=== PATIENT | male | born 1970 | race Caucasian/White ===

== ENCOUNTER → 2016-12-16 | Outpatient (REF) | payer OTHER ==
[~2016-12-16] MED LIST: /AMLO25TA PO; AMLO25TA PO; ASPI81TA85 PO; AVEL1TAB3 PO; BACT800T5 PO; CEFT1INJ65 IV; CEPH2CAP PO; CHLO125TA PO; DICL250C70 PO; DICL500C PO; GABA-282 PO; GLYB125TA PO; GLYB5TA PO; GLYB5TAB5 PO; HEPA100I4 IV; HEPA1INJ4 IV; INVA1INJ IV; INVO300T PO; LEVO100T5 PO; LEVO75TA4 PO; LISI-538 PO; LORA10CA PO; METF1000 PO; METF10004 PO; NAPR500T3 PO; PERCOCET PO; PRIN10TA PO; SALI0.9I2 IV; SILV50CR; SIMV40TA2 PO; SLF IV; TRAD5TAB PO; TYLE325T5 PO
[2016-12-16 20:18] LABS: ANION GAP 9 MEQ/L (8-16); BLOOD UREA NITROGEN 16 MG/DL (7-18); CALCIUM LEVEL 9.6 MG/DL (8.5-10.1); CARBON DIOXIDE LEVEL 28 MEQ/L (21-32); CHLORIDE LEVEL 100 MEQ/L (98-107); CREATININE FOR GFR 1.28 MG/DL (0.70-1.30); FREE T4 1.04 NG/DL (0.76-1.46); GLOMERULAR FILTRATION RATE > 60.0 (>60); MAGNESIUM LEVEL 2.1 MG/DL (1.8-2.4); POTASSIUM SERUM 4.3 MEQ/L (3.5-5.1); SODIUM LEVEL 137 MEQ/L (136-145)
[2016-12-16 20:51] LABS: GLUCOSE, FASTING 492 MG/DL (70-105)
== END ==
LOC: M SFHCPLAZ 15:09
DX: E03.9 Hypothyroidism, unspecified (principal); E11.21 Type 2 diabetes mellitus with diabetic nephropathy; I10 Essential (primary) hypertension

== ENCOUNTER → 2016-12-27 | Outpatient (REF) | payer OTHER | LOC: M LAB REF 16:57 | PROVIDERS: ATTEND Podiatrist | DX: E11.621 Type 2 diabetes mellitus with foot ulcer (principal) ==

== ENCOUNTER → 2017-02-24 | Outpatient (REF) | payer OTHER | LOC: M SFHCPLAZ 16:09 | DX: Z11.59 Encounter for screening for other viral diseases (principal); Z11.4 Encounter for screening for human immunodeficiency virus [HIV] ==

== ENCOUNTER → 2017-03-03 | Outpatient (REF) | payer OTHER | LOC: M LAB REF 12:54 | PROVIDERS: ATTEND Podiatrist | DX: L97.512 Non-pressure chronic ulcer of other part of right foot with fat layer exposed (principal) ==

== ENCOUNTER → 2017-03-07 | Outpatient (CLI) | payer OTHER ==
[2017-03-07 11:29] LABS: BASO # 0.1 10^3/uL (0.0-0.2); BASO % 0.8 % (0.0-1.0); EOS # 0.2 10^3/uL (0.0-0.50); EOS % 2.9 % (0.0-3.0); LYMPH # 2.2 10^3/uL (1.5-4.5); LYMPH % 28.3 % (24.0-44.0); MEAN CORPUSCULAR HEMOGLOBIN 29.9 pg (27.0-33.0); MEAN CORPUSCULAR HGB CONC 33.9 g/dl (32.0-36.5); MEAN CORPUSCULAR VOLUME 88.1 fl (80.0-96.0); MONO # 0.6 10^3/uL (0.0-0.8); MONO % 7.7 % (0.0-5.0); NEUTROPHILS # 4.6 10^3/uL (1.8-7.7); NEUTROPHILS % 59.3 % (36.0-66.0); PLATELET COUNT, AUTOMATED 218 10^3/uL (150-450); RED CELL DISTRIBUTION WIDTH 12.2 % (11.5-14.5); WHITE BLOOD COUNT 7.7 10^3/uL (4.0-10.0)
[2017-03-07 12:18] LABS: ALBUMIN 3.8 GM/DL (3.2-5.2); ALBUMIN/GLOBULIN RATIO 1.09 (1.00-1.93); ALKALINE PHOSPHATASE 83 U/L (45-117); ALT/SGPT 42 U/L (12-78); ANION GAP 8 MEQ/L (8-16); AST/SGOT 16 U/L (15-37); BILIRUBIN,TOTAL 0.4 MG/DL (0.2-1.0); BLOOD UREA NITROGEN 12 MG/DL (7-18); CALCIUM LEVEL 8.8 MG/DL (8.5-10.1); CARBON DIOXIDE LEVEL 29 MEQ/L (21-32); CHLORIDE LEVEL 98 MEQ/L (98-107); CREATININE FOR GFR 1.08 MG/DL (0.70-1.30); GLOMERULAR FILTRATION RATE > 60.0 (>60); POTASSIUM SERUM 4.6 MEQ/L (3.5-5.1); SODIUM LEVEL 135 MEQ/L (136-145); TOTAL PROTEIN 7.3 GM/DL (6.4-8.2)
[2017-03-07 12:22] LABS: GLUCOSE, FASTING 416 MG/DL (70-105)
--- NOTE | 2017-03-07 21:33 | ECGEPIP ---
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
== END ==
LOC: M LAB 10:51
PROVIDERS: ATTEND Podiatrist
DX: Z01.818 Encounter for other preprocedural examination (principal)

== ENCOUNTER 2017-03-11 11:30 | Day surgery (SDC) | payer OTHER ==
[~2017-03-11] VITALS: Ht 182.9 cm; Wt 143.8 kg
[2017-03-11] MEDS ORDERED: LR 1,000 ML IV ONE (11:45)
[2017-03-11] MEDS ORDERED: LIDOCAINE 2% INJ 100 MG/5 ML SDV (FOR ANES.) As Ordered ONE (11:46)
[2017-03-11] MEDS ORDERED: PROPOFOL 200 MG/20 ML VIAL As Ordered ONE (11:46)
[2017-03-11] MEDS ORDERED: fentaNYL 100 MCG/2 ML INJECTION (J3010) As Ordered ONE (11:47)
[2017-03-11] MEDS ORDERED: MIDAZOLAM INJ 2 MG/2 ML VIAL (J2250) As Ordered ONE (11:48)
[2017-03-11] MEDS ORDERED: VANCOMYCIN HCL 1,000 MG, VIAL MATE ADAPTER 1 EACH in D5W 250 ML IV ONE (12:00)
[2017-03-11] MEDS ORDERED: dexameTHASONE 4 MG/ML 1ML VIAL (J1100) As Ordered ONE (12:19)
[2017-03-11] MEDS ORDERED: LIDOCAINE 2% MDV 20 ML VIAL As Ordered ONE (12:19)
[2017-03-11] MEDS ORDERED: BUPIVACAINE HCL 0.5% 30 ML VIAL As Ordered ONE (12:20)
[2017-03-11] MEDS ORDERED: BACITRACIN PWD 50,000 UNITS VIAL As Ordered ONE (12:20)
[2017-03-11] MEDS ORDERED: HumaLOG INSULIN (NovoLOG) PER UNIT As Ordered ONE (12:27)
[2017-03-11] MEDS ORDERED: HumaLOG INSULIN (NovoLOG) PER UNIT SC ONE ×2 (13:00→14:15)
[2017-03-11 14:45] VITALS: BP 135/68
--- NOTE | 2017-03-11 14:55 | REP ---
RIGHT FOOT: Three views of the right foot are performed. There is resection of the 2nd toe at the level of the proximal phalanx mid aspect. There is resection of the 3rd toe at the level of the metatarsophalangeal joint. There is resection of the 4th toe at the level of the middle phalanx mid aspect. The structures are well aligned. There are degenerative changes at the tarsal-metatarsal joints. There is mild inferior calcaneal spurring. Signed by Frank Villegas MD 03/11/2017 05:21 P
--- NOTE | 2017-03-12 07:18 | RO ---
DATE OF PROCEDURE: 03/11/2017 PREPROCEDURE DIAGNOSIS: Chronic ulceration with infected second toe right foot. POSTPROCEDURE DIAGNOSIS: Chronic ulceration with infected second toe right foot. PROCEDURE: Partial second toe amputation right foot. SURGEON: Dr. Chu Mobley DPM MELTER OPERATOR: None. ANESTHESIA: Local MAC. ESTIMATED BLOOD LOSS: Less than 15 mL. IRRIGATION: Dilute bacitracin, neomycin and polymyxin B solution. HEMOSTASIS: None. DESCRIPTION OF OPERATION: On 03/11/2017, this 46-year-old white male was taken from his hospital room to the operating room and placed on the operating room table in the supine position. Following the induction of IV sedation and local and regional anesthesia, the right lower extremity was prepped and draped in the usual aseptic manner. Attention was directed to the patient's right foot where there was noted to be a chronic ulceration distal aspect second toe right foot. At this time, a modified rachet incision was placed over the interphalangeal joint of the second toe. Dissection was carried sharply down to bone. All bleeders as encountered were electrocoagulated. Utilizing a power saw, an osteotomy was performed through the mid shaft of the middle phalanx. The second toe was then extirpated from the wound. Any remaining bleeders were electrocoagulated. The wound was flushed with copious amounts of dilute bacitracin, neomycin and polymyxin B solution. Bone culture was obtained from the bone on the distal aspect of the second toe. Skin was closed with #3-0 Nylon suture in a simple interrupted type fashion. Dry sterile dressing was applied. The patient having apparently tolerated the surgical procedure well was taken from the operating room (OR) to the recovery room with vital signs stable and the patient afebrile for further monitoring by the anesthesia department. All surgical specimens removed were sent for either aerobic and anaerobic culture or gross evaluation.
== END 2017-03-11 15:00 | disposition home or self-care (01) ==
LOC: M SDC 11:30
PROVIDERS: ATTEND Podiatrist
DX: L97.512 Non-pressure chronic ulcer of other part of right foot with fat layer exposed (principal); M79.671 Pain in right foot; B95.1 Streptococcus, group B, as the cause of diseases classified elsewhere; B95.2 Enterococcus as the cause of diseases classified elsewhere; B95.7 Other staphylococcus as the cause of diseases classified elsewhere; E11.42 Type 2 diabetes mellitus with diabetic polyneuropathy; E11.621 Type 2 diabetes mellitus with foot ulcer; I10 Essential (primary) hypertension; E78.5 Hyperlipidemia, unspecified; E03.9 Hypothyroidism, unspecified; F41.9 Anxiety disorder, unspecified; Z79.899 Other long term (current) drug therapy; Z87.891 Personal history of nicotine dependence; Z91.040 Latex allergy status; Z91.030 Bee allergy status; Z79.84 Long term (current) use of oral hypoglycemic drugs

== ENCOUNTER → 2017-03-22 | Outpatient (CLI) | payer OTHER ==
[~2017-03-22] MED LIST changes: +ISOVUE-370 76% 100ML VIAL (Q9967) As Ordered ONE
--- NOTE | 2017-03-23 05:15 | REP ---
Clinical: Abnormal density on x-ray. Comparison: Chest x-ray dated 02/24/2017. Technique: Axial contrast enhanced images from the thoracic inlet to the upper abdomen using 100 ml Isovue 370 intravenous contrast material with coronal and sagittal re-formations. Findings: The curvilinear abnormality seen on recent chest x-ray corresponds to an area of presumed linear scarring in the right middle lobe (images 45 - 55). The bilateral lung slade are otherwise well aerated and clear. No further consolidation, obvious nodule or mass lesion is appreciated. No pleural effusion/reaction or pneumothorax. Tracheobronchial tree is patent. No adenopathy. Mediastinum demonstrates normal thoracic aorta, pulmonary vasculature and heart/pericardium. Limited evaluation of the upper abdomen demonstrates hepatic steatosis. Surrounding musculoskeletal structures without focal osseous abnormality. Impression: Recent abnormal chest x-ray finding corresponds to presumed chronic linear fibroatelectatic changes in the right middle lobe. No further abnormalities are identified. Signed by Tomi Rosenthal MD 03/23/2017 05:06 A
== END ==
LOC: M RAD 12:57
PROVIDERS: ATTEND Neuromusculoskeletal Medicine & OMM
DX: R93.8 Abnormal findings on diagnostic imaging of other specified body structures (principal)
CPT/HCPCS: 71260; Q9967

== ENCOUNTER → 2018-07-25 | Outpatient (REF) ==
[~2018-07-25] MED LIST changes: -GABA-282 PO; +GABA-843 PO; -ISOVUE-370 76% 100ML VIAL (Q9967) As Ordered ONE; +NAPR-885 PO; -NAPR500T3 PO
--- NOTE | 2018-07-25 14:54 | REP ---
PARTIAL LUMBAR SPINE, THREE VIEWS: HISTORY: Degenerative disc disease. COMPARISON: 04/01/2014 There is no acute fracture or subluxation. The L3-4 through L5-S1 intervertebral discs are decreased in height consistent with disc degeneration. Osteophytes are present on L3 through 5. IMPRESSION:Degenerative change as described above. Electronically Signed by John Marin MD 07/25/2018 02:54 P
== END ==
LOC: M SMT 12:59
PROVIDERS: ATTEND Internal Medicine
DX: Z02.71 Encounter for disability determination (principal)

== ENCOUNTER 2021-07-06 10:08 | Inpatient (IN) | payer OTHER ==
[~2021-07-06] VITALS: Ht 182.9 cm; Wt 127.7 kg
[~2021-07-06 10:08] MED LIST changes: -/AMLO25TA PO; +AMLO1TAB25 PO; +AMOX875T2 PO; +ASPI81TA26 PO; -ASPI81TA85 PO; +ASPI81TA86 PO; +DULC10SU2 PR; +GABA-282 PO; -GABA-843 PO; +GLYB-147 PO; -GLYB5TA PO; +HYDR-4514 PO; +INSUDET SC; -LISI-538 PO; +LISI20TA33 PO; +LORA-243 PO; +LOVE1INJ SC; +MOM30SS2 PO; +NORV2TAB PO; +OXYC1TAB23 PO; +RISATAB3 PO; +SENN18TA PO; -SIMV40TA2 PO; +SIMV40TA20 PO; +SYNT125T PO
[2021-07-06] MEDS ORDERED: GLUCAGON INJ 1MG VIAL SC PRN (10:55)
[2021-07-06] MEDS ORDERED: DEXTROSE 50% 50 ML SYRINGE IV PRN (10:55)
[2021-07-06] MEDS ORDERED: BISACODYL 10 MG SUPP PR PRN (10:55)
[2021-07-06] MEDS ORDERED: GLUCOSE 4GM CHEW TABLET PO PRN (10:55)
[2021-07-06] MEDS ORDERED: MIRALAX *UNIT DOSE* 17GM PACKET PO PRN (10:55)
[2021-07-06 14:15] VITALS: BP 110/59
[2021-07-06] MEDS ORDERED: HOME MED LIST COMPLETE! XX SCH (14:30)
[2021-07-06] MEDS: ACETAMINOPHEN TAB 650MG DOSE (2X325MG) PO SCH ×2 (16:27→21:03)
[2021-07-06] MEDS: PANTOPRAZOLE 40MG TAB (PROTONIX) PO SCH (16:27)
[2021-07-06] MEDS: GABAPENTIN 300 MG CAP PO SCH ×2 (16:27→21:04)
[2021-07-06] MEDS: REMEDY PHYTOPLEX Z-GUARD PASTE 113GM TUBE (FROM STOREROOM PRODUCT) TOP SCH ×2 (16:28→21:00)
[2021-07-06] MEDS: HumaLOG INSULIN (NovoLOG) PER UNIT SC SCH ×2 (17:49→21:00)
[2021-07-06] MEDS: ANEXSIA, NORCO 7.5MG/325MG TABLET(HYDROCODONE/APAP) PO SCH (17:49)
[2021-07-06] MEDS: LACTOBACILLUS ACIDOPHILUS CAP (BACID) PO SCH (17:49)
[2021-07-06 20:21] VITALS: BP 121/63
[2021-07-06] MEDS ORDERED: AUGMENTIN 875 MG TAB PO ONE (21:00)
[2021-07-06] MEDS: SENNA 8.6 MG TAB (SENOKOT) PO SCH (21:00)
[2021-07-06] MEDS: DOCUSATE SODIUM 100MG CAPSULE PO SCH (21:00)
[2021-07-06] MEDS: SIMVASTATIN 40 MG TAB PO SCH (21:03)
[2021-07-06] MEDS: LEVEMIR (INSULIN DETEMIR) 1 UNITS/0.01ML SC SCH (21:04)
[2021-07-06] MEDS: SODIUM CHLORIDE NASAL 0.65% SPRAY BTL (OCEAN) SCH (21:04)
[2021-07-07] MEDS: LEVOTHYROXINE 125MCG TABLET (0.125MG) PO SCH (05:53)
[2021-07-07] MEDS: ANEXSIA, NORCO 7.5MG/325MG TABLET(HYDROCODONE/APAP) PO SCH ×3 (05:53→17:03)
[2021-07-07 06:09] VITALS: BP 134/71
[2021-07-07 07:37] LABS: BASO # 0.1 10^3/uL (0.0-0.2); BASO % 0.9 % (0.0-1.0); EOS # 0.3 10^3/uL (0.0-0.5); EOS % 3.8 % (0.0-3.0); HEMATOCRIT 25.1 % (42.0-52.0); HEMOGLOBIN 8.1 g/dl (13.5-17.5); LYMPH % 22.9 % (24.0-44.0); MEAN CORPUSCULAR HGB CONC 32.3 g/dl (32.0-36.5); MONO # 0.5 10^3/uL (0.0-0.8); NEUTROPHILS # 5.6 10^3/uL (1.5-8.5); NEUTROPHILS % 65.5 % (36.0-66.0); PLATELET COUNT, AUTOMATED 420 10^3/uL (150-450); RED BLOOD COUNT 2.79 10^6/uL (4.30-6.10); WHITE BLOOD COUNT 8.5 10^3/uL (4.0-10.0)
[2021-07-07] MEDS: DOCUSATE SODIUM 100MG CAPSULE PO SCH ×2 (07:56→20:36)
[2021-07-07] MEDS: ASPIRIN 81MG ENTERIC TABLET PO SCH (08:02)
[2021-07-07 08:03] LABS: ALBUMIN 1.6 GM/DL (3.2-5.2); ALT/SGPT 14 U/L (12-78); BILIRUBIN,TOTAL 0.3 MG/DL (0.2-1.0); BLOOD UREA NITROGEN 12 MG/DL (7-18); CALCIUM LEVEL 8.6 MG/DL (8.5-10.1); CARBON DIOXIDE LEVEL 30 MEQ/L (21-32); CHLORIDE LEVEL 102 MEQ/L (98-107); CREATININE FOR GFR 0.94 MG/DL (0.70-1.30); GLOMERULAR FILTRATION RATE > 60.0 (>56); GLUCOSE, FASTING 144 MG/DL (70-100); POTASSIUM SERUM 4.3 MEQ/L (3.5-5.1); SODIUM LEVEL 135 MEQ/L (136-145); TOTAL PROTEIN 6.8 GM/DL (6.4-8.2)
[2021-07-07] MEDS: FOLIC ACID 1 MG TAB PO SCH (08:03)
[2021-07-07] MEDS: GABAPENTIN 300 MG CAP PO SCH ×3 (08:03→20:36)
[2021-07-07] MEDS: ACETAMINOPHEN TAB 650MG DOSE (2X325MG) PO SCH ×3 (08:03→20:37)
[2021-07-07] MEDS: LACTOBACILLUS ACIDOPHILUS CAP (BACID) PO SCH ×2 (08:03→17:02)
[2021-07-07] MEDS: MULTIVITAMINS/MINERALS THERAP 1 TAB PO SCH (08:03)
[2021-07-07] MEDS: PANTOPRAZOLE 40MG TAB (PROTONIX) PO SCH (08:03)
[2021-07-07] MEDS: ENOXAPARIN 40MG/0.4ML SYRINGE (J1650 PER 10MG) SC SCH (08:04)
[2021-07-07] MEDS: LEVEMIR (INSULIN DETEMIR) 1 UNITS/0.01ML SC SCH ×2 (08:04→20:37)
[2021-07-07] MEDS: HumaLOG INSULIN (NovoLOG) PER UNIT SC SCH ×4 (08:05→20:37)
[2021-07-07] MEDS: SODIUM CHLORIDE NASAL 0.65% SPRAY BTL (OCEAN) SCH ×2 (08:06→20:38)
[2021-07-07] MEDS: REMEDY PHYTOPLEX Z-GUARD PASTE 113GM TUBE (FROM STOREROOM PRODUCT) TOP SCH ×3 (08:06→20:38)
[2021-07-07 14:00] VITALS: BP 129/64
[2021-07-07 20:00] VITALS: BP 129/63
[2021-07-07] MEDS: SIMVASTATIN 40 MG TAB PO SCH (20:36)
[2021-07-07] MEDS: SENNA 8.6 MG TAB (SENOKOT) PO SCH (20:36)
[2021-07-07] MEDS: TAMSULOSIN 0.4 MG CAP PO SCH (20:36)
[2021-07-08] MEDS: ANEXSIA, NORCO 7.5MG/325MG TABLET(HYDROCODONE/APAP) PO SCH ×3 (05:57→17:20)
[2021-07-08] MEDS: LEVOTHYROXINE 125MCG TABLET (0.125MG) PO SCH (05:57)
[2021-07-08 06:00] VITALS: BP 129/60
[2021-07-08 06:12] LABS: BASO # 0.1 10^3/uL (0.0-0.2); BASO % 1.4 % (0.0-1.0); EOS # 0.4 10^3/uL (0.0-0.5); EOS % 5.8 % (0.0-3.0); HEMATOCRIT 25.6 % (42.0-52.0); LYMPH % 28.4 % (24.0-44.0); MEAN CORPUSCULAR HEMOGLOBIN 28.7 pg (27.0-33.0); MEAN CORPUSCULAR HGB CONC 31.3 g/dl (32.0-36.5); MEAN CORPUSCULAR VOLUME 91.8 fl (80.0-96.0); MONO # 0.5 10^3/uL (0.0-0.8); MONO % 6.6 % (2.0-8.0); NEUTROPHILS % 56.4 % (36.0-66.0); PLATELET COUNT, AUTOMATED 376 10^3/uL (150-450); RED BLOOD COUNT 2.79 10^6/uL (4.30-6.10); WHITE BLOOD COUNT 7.1 10^3/uL (4.0-10.0)
[2021-07-08 06:47] LABS: BLOOD UREA NITROGEN 14 MG/DL (7-18); CALCIUM LEVEL 8.7 MG/DL (8.5-10.1); CARBON DIOXIDE LEVEL 29 MEQ/L (21-32); CHLORIDE LEVEL 103 MEQ/L (98-107); CREATININE FOR GFR 0.96 MG/DL (0.70-1.30); GLOMERULAR FILTRATION RATE > 60.0 (>56); GLUCOSE, FASTING 178 MG/DL (70-100); POTASSIUM SERUM 4.5 MEQ/L (3.5-5.1); SODIUM LEVEL 136 MEQ/L (136-145)
[2021-07-08] MEDS: ASPIRIN 81MG ENTERIC TABLET PO SCH (08:14)
[2021-07-08] MEDS: GABAPENTIN 300 MG CAP PO SCH ×3 (08:14→21:09)
[2021-07-08] MEDS: FOLIC ACID 1 MG TAB PO SCH (08:14)
[2021-07-08] MEDS: FUROSEMIDE 40 MG TAB PO SCH (08:14)
[2021-07-08] MEDS: LACTOBACILLUS ACIDOPHILUS CAP (BACID) PO SCH ×2 (08:14→17:20)
[2021-07-08] MEDS: PANTOPRAZOLE 40MG TAB (PROTONIX) PO SCH (08:14)
[2021-07-08] MEDS: ENOXAPARIN 40MG/0.4ML SYRINGE (J1650 PER 10MG) SC SCH (08:14)
[2021-07-08] MEDS: ACETAMINOPHEN TAB 650MG DOSE (2X325MG) PO SCH ×3 (08:14→21:08)
[2021-07-08] MEDS: MULTIVITAMINS/MINERALS THERAP 1 TAB PO SCH (08:14)
[2021-07-08] MEDS: HumaLOG INSULIN (NovoLOG) PER UNIT SC SCH ×4 (08:15→20:47)
[2021-07-08] MEDS: SODIUM CHLORIDE NASAL 0.65% SPRAY BTL (OCEAN) SCH ×2 (08:15→21:00)
[2021-07-08] MEDS: LEVEMIR (INSULIN DETEMIR) 1 UNITS/0.01ML SC SCH ×2 (08:15→21:08)
[2021-07-08] MEDS: REMEDY PHYTOPLEX Z-GUARD PASTE 113GM TUBE (FROM STOREROOM PRODUCT) TOP SCH ×3 (08:16→21:07)
[2021-07-08] MEDS: DOCUSATE SODIUM 100MG CAPSULE PO SCH ×2 (08:17→21:08)
[2021-07-08 14:00] VITALS: BP 126/62
[2021-07-08 20:00] VITALS: BP 134/66
[2021-07-08] MEDS: TAMSULOSIN 0.4 MG CAP PO SCH (21:09)
[2021-07-08] MEDS: SIMVASTATIN 40 MG TAB PO SCH (21:09)
[2021-07-08] MEDS: SENNA 8.6 MG TAB (SENOKOT) PO SCH (21:09)
[2021-07-09] MEDS: LEVOTHYROXINE 125MCG TABLET (0.125MG) PO SCH (05:57)
[2021-07-09 05:58] VITALS: BP 124/56
[2021-07-09] MEDS: ANEXSIA, NORCO 7.5MG/325MG TABLET(HYDROCODONE/APAP) PO SCH ×3 (05:58→18:22)
[2021-07-09] MEDS: HumaLOG INSULIN (NovoLOG) PER UNIT SC SCH ×4 (08:28→21:00)
[2021-07-09] MEDS: LEVEMIR (INSULIN DETEMIR) 1 UNITS/0.01ML SC SCH ×2 (08:28→21:10)
[2021-07-09] MEDS: PANTOPRAZOLE 40MG TAB (PROTONIX) PO SCH (08:29)
[2021-07-09] MEDS: MULTIVITAMINS/MINERALS THERAP 1 TAB PO SCH (08:29)
[2021-07-09] MEDS: DOCUSATE SODIUM 100MG CAPSULE PO SCH ×2 (08:29→21:10)
[2021-07-09] MEDS: FUROSEMIDE 40 MG TAB PO SCH (08:29)
[2021-07-09] MEDS: ENOXAPARIN 40MG/0.4ML SYRINGE (J1650 PER 10MG) SC SCH (08:29)
[2021-07-09] MEDS: GABAPENTIN 300 MG CAP PO SCH (08:30)
[2021-07-09] MEDS: ASPIRIN 81MG ENTERIC TABLET PO SCH (08:30)
[2021-07-09] MEDS: FOLIC ACID 1 MG TAB PO SCH (08:30)
[2021-07-09] MEDS: REMEDY PHYTOPLEX Z-GUARD PASTE 113GM TUBE (FROM STOREROOM PRODUCT) TOP SCH ×3 (08:30→21:11)
[2021-07-09] MEDS: LACTOBACILLUS ACIDOPHILUS CAP (BACID) PO SCH ×2 (08:30→18:21)
[2021-07-09] MEDS: ACETAMINOPHEN TAB 650MG DOSE (2X325MG) PO SCH ×3 (08:30→21:10)
[2021-07-09] MEDS: SODIUM CHLORIDE NASAL 0.65% SPRAY BTL (OCEAN) SCH ×2 (08:31→21:00)
[2021-07-09 14:00] VITALS: BP 126/63
[2021-07-09] MEDS: GABAPENTIN 100 MG CAP PO SCH ×2 (16:52→21:10)
[2021-07-09 20:00] VITALS: BP 141/73
[2021-07-09] MEDS: SIMVASTATIN 40 MG TAB PO SCH (21:10)
[2021-07-09] MEDS: TAMSULOSIN 0.4 MG CAP PO SCH (21:10)
[2021-07-09] MEDS: SENNA 8.6 MG TAB (SENOKOT) PO SCH (21:10)
[2021-07-10 06:00] VITALS: BP 146/75
[2021-07-10] MEDS: LEVOTHYROXINE 125MCG TABLET (0.125MG) PO SCH (06:07)
[2021-07-10] MEDS: ANEXSIA, NORCO 7.5MG/325MG TABLET(HYDROCODONE/APAP) PO SCH ×3 (06:07→17:43)
[2021-07-10] MEDS: LEVEMIR (INSULIN DETEMIR) 1 UNITS/0.01ML SC SCH ×2 (08:42→21:57)
[2021-07-10] MEDS: HumaLOG INSULIN (NovoLOG) PER UNIT SC SCH ×4 (08:43→21:00)
[2021-07-10] MEDS: ASPIRIN 81MG ENTERIC TABLET PO SCH (08:44)
[2021-07-10] MEDS: FOLIC ACID 1 MG TAB PO SCH (08:44)
[2021-07-10] MEDS: GABAPENTIN 100 MG CAP PO SCH ×3 (08:44→21:56)
[2021-07-10] MEDS: MULTIVITAMINS/MINERALS THERAP 1 TAB PO SCH (08:44)
[2021-07-10] MEDS: LACTOBACILLUS ACIDOPHILUS CAP (BACID) PO SCH ×2 (08:44→17:43)
[2021-07-10] MEDS: ENOXAPARIN 40MG/0.4ML SYRINGE (J1650 PER 10MG) SC SCH (08:44)
[2021-07-10] MEDS: ACETAMINOPHEN TAB 650MG DOSE (2X325MG) PO SCH ×3 (08:44→21:56)
[2021-07-10] MEDS: FUROSEMIDE 40 MG TAB PO SCH (08:45)
[2021-07-10] MEDS: PANTOPRAZOLE 40MG TAB (PROTONIX) PO SCH (08:45)
[2021-07-10] MEDS: SODIUM CHLORIDE NASAL 0.65% SPRAY BTL (OCEAN) SCH ×2 (08:45→21:00)
[2021-07-10] MEDS: REMEDY PHYTOPLEX Z-GUARD PASTE 113GM TUBE (FROM STOREROOM PRODUCT) TOP SCH ×3 (09:05→21:59)
[2021-07-10] MEDS: DOCUSATE SODIUM 100MG CAPSULE PO SCH ×2 (09:06→21:00)
[2021-07-10 09:26] LABS: BASO # 0.1 10^3/uL (0.0-0.2); EOS # 0.4 10^3/uL (0.0-0.5); EOS % 7.6 % (0.0-3.0); HEMATOCRIT 28.5 % (42.0-52.0); LYMPH # 1.6 10^3/uL (1.5-5.0); LYMPH % 30.8 % (24.0-44.0); MEAN CORPUSCULAR HEMOGLOBIN 28.5 pg (27.0-33.0); MEAN CORPUSCULAR HGB CONC 31.6 g/dl (32.0-36.5); MEAN CORPUSCULAR VOLUME 90.2 fl (80.0-96.0); MONO # 0.4 10^3/uL (0.0-0.8); MONO % 7.2 % (2.0-8.0); NEUTROPHILS # 2.7 10^3/uL (1.5-8.5); NEUTROPHILS % 52.8 % (36.0-66.0); PLATELET COUNT, AUTOMATED 360 10^3/uL (150-450); RED BLOOD COUNT 3.16 10^6/uL (4.30-6.10); WHITE BLOOD COUNT 5.2 10^3/uL (4.0-10.0)
[2021-07-10 09:51] LABS: BLOOD UREA NITROGEN 12 MG/DL (7-18); CALCIUM LEVEL 8.7 MG/DL (8.5-10.1); CARBON DIOXIDE LEVEL 29 MEQ/L (21-32); CHLORIDE LEVEL 104 MEQ/L (98-107); CREATININE FOR GFR 0.87 MG/DL (0.70-1.30); GLOMERULAR FILTRATION RATE > 60.0 (>56); GLUCOSE, FASTING 138 MG/DL (70-100); POTASSIUM SERUM 4.4 MEQ/L (3.5-5.1); SODIUM LEVEL 135 MEQ/L (136-145)
[2021-07-10 14:00] VITALS: BP 134/75
[2021-07-10] MEDS: MUPIROCIN 2% OINT 22 GM TUBE TOP SCH ×2 (15:28→21:59)
[2021-07-10 20:15] VITALS: BP 172/80
[2021-07-10 20:18] VITALS: BP 152/78
[2021-07-10] MEDS: SENNA 8.6 MG TAB (SENOKOT) PO SCH (21:00)
[2021-07-10] MEDS: SIMVASTATIN 40 MG TAB PO SCH (21:56)
[2021-07-10] MEDS: TAMSULOSIN 0.4 MG CAP PO SCH (21:56)
[2021-07-11 05:42] VITALS: BP 156/76
[2021-07-11] MEDS: LEVOTHYROXINE 125MCG TABLET (0.125MG) PO SCH (06:14)
[2021-07-11] MEDS: ANEXSIA, NORCO 7.5MG/325MG TABLET(HYDROCODONE/APAP) PO SCH ×3 (06:15→17:12)
[2021-07-11] MEDS: DOCUSATE SODIUM 100MG CAPSULE PO SCH ×2 (07:09→21:00)
[2021-07-11] MEDS: MUPIROCIN 2% OINT 22 GM TUBE TOP SCH ×2 (07:18→21:21)
[2021-07-11] MEDS: ENOXAPARIN 40MG/0.4ML SYRINGE (J1650 PER 10MG) SC SCH (07:18)
[2021-07-11] MEDS: ASPIRIN 81MG ENTERIC TABLET PO SCH (07:19)
[2021-07-11] MEDS: LACTOBACILLUS ACIDOPHILUS CAP (BACID) PO SCH ×2 (07:19→17:11)
[2021-07-11] MEDS: HumaLOG INSULIN (NovoLOG) PER UNIT SC SCH ×4 (07:19→21:00)
[2021-07-11] MEDS: LEVEMIR (INSULIN DETEMIR) 1 UNITS/0.01ML SC SCH ×2 (07:19→21:19)
[2021-07-11] MEDS: FUROSEMIDE 40 MG TAB PO SCH (07:19)
[2021-07-11] MEDS: REMEDY PHYTOPLEX Z-GUARD PASTE 113GM TUBE (FROM STOREROOM PRODUCT) TOP SCH ×3 (07:20→21:21)
[2021-07-11] MEDS: FOLIC ACID 1 MG TAB PO SCH (07:20)
[2021-07-11] MEDS: ACETAMINOPHEN TAB 650MG DOSE (2X325MG) PO SCH ×3 (07:20→21:20)
[2021-07-11] MEDS: GABAPENTIN 100 MG CAP PO SCH ×3 (07:20→21:20)
[2021-07-11] MEDS: PANTOPRAZOLE 40MG TAB (PROTONIX) PO SCH (07:20)
[2021-07-11] MEDS: MULTIVITAMINS/MINERALS THERAP 1 TAB PO SCH (07:20)
[2021-07-11] MEDS: SODIUM CHLORIDE NASAL 0.65% SPRAY BTL (OCEAN) SCH ×2 (07:21→21:00)
[2021-07-11 14:00] VITALS: BP 140/73
[2021-07-11 20:00] VITALS: BP 140/75
[2021-07-11] MEDS: SENNA 8.6 MG TAB (SENOKOT) PO SCH (21:00)
[2021-07-11] MEDS: SIMVASTATIN 40 MG TAB PO SCH (21:19)
[2021-07-11] MEDS: TAMSULOSIN 0.4 MG CAP PO SCH (21:19)
[2021-07-12] MEDS: LEVOTHYROXINE 125MCG TABLET (0.125MG) PO SCH (05:18)
[2021-07-12] MEDS: ANEXSIA, NORCO 7.5MG/325MG TABLET(HYDROCODONE/APAP) PO SCH ×3 (05:18→17:36)
[2021-07-12 06:00] VITALS: BP 135/71
[2021-07-12] MEDS: FOLIC ACID 1 MG TAB PO SCH (08:17)
[2021-07-12] MEDS: GABAPENTIN 100 MG CAP PO SCH ×3 (08:17→20:18)
[2021-07-12] MEDS: MULTIVITAMINS/MINERALS THERAP 1 TAB PO SCH (08:17)
[2021-07-12] MEDS: ASPIRIN 81MG ENTERIC TABLET PO SCH (08:17)
[2021-07-12] MEDS: FUROSEMIDE 40 MG TAB PO SCH (08:17)
[2021-07-12] MEDS: ACETAMINOPHEN TAB 650MG DOSE (2X325MG) PO SCH ×3 (08:17→20:18)
[2021-07-12] MEDS: LACTOBACILLUS ACIDOPHILUS CAP (BACID) PO SCH ×2 (08:17→17:36)
[2021-07-12] MEDS: LEVEMIR (INSULIN DETEMIR) 1 UNITS/0.01ML SC SCH ×2 (08:18→20:19)
[2021-07-12] MEDS: REMEDY PHYTOPLEX Z-GUARD PASTE 113GM TUBE (FROM STOREROOM PRODUCT) TOP SCH ×3 (08:18→20:19)
[2021-07-12] MEDS: HumaLOG INSULIN (NovoLOG) PER UNIT SC SCH ×4 (08:18→20:19)
[2021-07-12] MEDS: ENOXAPARIN 40MG/0.4ML SYRINGE (J1650 PER 10MG) SC SCH (08:18)
[2021-07-12] MEDS: PANTOPRAZOLE 40MG TAB (PROTONIX) PO SCH (08:19)
[2021-07-12] MEDS: SODIUM CHLORIDE NASAL 0.65% SPRAY BTL (OCEAN) SCH ×2 (08:19→20:19)
[2021-07-12] MEDS: MUPIROCIN 2% OINT 22 GM TUBE TOP SCH ×2 (08:19→20:20)
[2021-07-12] MEDS: DOCUSATE SODIUM 100MG CAPSULE PO SCH ×2 (08:21→20:17)
[2021-07-12 14:00] VITALS: BP 133/68
[2021-07-12 20:00] VITALS: BP 144/69
[2021-07-12] MEDS: TAMSULOSIN 0.4 MG CAP PO SCH (20:18)
[2021-07-12] MEDS: SENNA 8.6 MG TAB (SENOKOT) PO SCH (20:18)
[2021-07-12] MEDS: SIMVASTATIN 40 MG TAB PO SCH (20:18)
[2021-07-13] MEDS: LEVOTHYROXINE 125MCG TABLET (0.125MG) PO SCH (05:58)
[2021-07-13] MEDS: ANEXSIA, NORCO 7.5MG/325MG TABLET(HYDROCODONE/APAP) PO SCH ×3 (05:59→17:51)
[2021-07-13 06:00] VITALS: BP 164/64
[2021-07-13] MEDS: MULTIVITAMINS/MINERALS THERAP 1 TAB PO SCH (08:49)
[2021-07-13] MEDS: FUROSEMIDE 40 MG TAB PO SCH (08:49)
[2021-07-13] MEDS: GABAPENTIN 100 MG CAP PO SCH ×3 (08:49→21:02)
[2021-07-13] MEDS: LACTOBACILLUS ACIDOPHILUS CAP (BACID) PO SCH ×2 (08:49→17:51)
[2021-07-13] MEDS: FOLIC ACID 1 MG TAB PO SCH (08:49)
[2021-07-13] MEDS: PANTOPRAZOLE 40MG TAB (PROTONIX) PO SCH (08:49)
[2021-07-13] MEDS: DOCUSATE SODIUM 100MG CAPSULE PO SCH ×2 (08:49→21:02)
[2021-07-13] MEDS: ASPIRIN 81MG ENTERIC TABLET PO SCH (08:49)
[2021-07-13] MEDS: ACETAMINOPHEN TAB 650MG DOSE (2X325MG) PO SCH ×3 (08:50→21:03)
[2021-07-13] MEDS: ENOXAPARIN 40MG/0.4ML SYRINGE (J1650 PER 10MG) SC SCH (08:51)
[2021-07-13] MEDS: LEVEMIR (INSULIN DETEMIR) 1 UNITS/0.01ML SC SCH ×2 (08:52→21:02)
[2021-07-13] MEDS: HumaLOG INSULIN (NovoLOG) PER UNIT SC SCH ×4 (08:52→19:55)
[2021-07-13] MEDS: MUPIROCIN 2% OINT 22 GM TUBE TOP SCH ×2 (09:13→21:00)
[2021-07-13] MEDS: SODIUM CHLORIDE NASAL 0.65% SPRAY BTL (OCEAN) SCH ×2 (09:13→21:00)
[2021-07-13] MEDS: REMEDY PHYTOPLEX Z-GUARD PASTE 113GM TUBE (FROM STOREROOM PRODUCT) TOP SCH ×3 (09:13→21:01)
[2021-07-13 09:32] VITALS: BP 146/75
[2021-07-13 10:31] LABS: BASO # 0.1 10^3/uL (0.0-0.2); BASO % 0.9 % (0.0-1.0); EOS # 0.6 10^3/uL (0.0-0.5); EOS % 9.6 % (0.0-3.0); HEMATOCRIT 31.9 % (42.0-52.0); HEMOGLOBIN 9.8 g/dl (13.5-17.5); LYMPH % 30.6 % (24.0-44.0); MEAN CORPUSCULAR HEMOGLOBIN 28.1 pg (27.0-33.0); MEAN CORPUSCULAR HGB CONC 30.7 g/dl (32.0-36.5); MEAN CORPUSCULAR VOLUME 91.4 fl (80.0-96.0); MONO # 0.4 10^3/uL (0.0-0.8); MONO % 6.4 % (2.0-8.0); NEUTROPHILS # 3.4 10^3/uL (1.5-8.5); NEUTROPHILS % 51.7 % (36.0-66.0); PLATELET COUNT, AUTOMATED 410 10^3/uL (150-450); RED BLOOD COUNT 3.49 10^6/uL (4.30-6.10); WHITE BLOOD COUNT 6.5 10^3/uL (4.0-10.0)
[2021-07-13 10:55] LABS: BLOOD UREA NITROGEN 11 MG/DL (7-18); CALCIUM LEVEL 9.2 MG/DL (8.5-10.1); CARBON DIOXIDE LEVEL 27 MEQ/L (21-32); CHLORIDE LEVEL 102 MEQ/L (98-107); CREATININE FOR GFR 1.12 MG/DL (0.70-1.30); GLOMERULAR FILTRATION RATE > 60.0 (>56); GLUCOSE, FASTING 160 MG/DL (70-100); SODIUM LEVEL 136 MEQ/L (136-145)
[2021-07-13 14:00] VITALS: BP 138/84
[2021-07-13 20:00] VITALS: BP 127/61
[2021-07-13] MEDS: SENNA 8.6 MG TAB (SENOKOT) PO SCH (21:02)
[2021-07-13] MEDS: TAMSULOSIN 0.4 MG CAP PO SCH (21:02)
[2021-07-13] MEDS: SIMVASTATIN 40 MG TAB PO SCH (21:03)
[2021-07-13] MEDS ORDERED: NORCO, ANEXSIA 5/325MG TABLET (HYDROcodone/ACETAMINOPHEN) PO ONE (22:10)
[2021-07-14] MEDS: ANEXSIA, NORCO 7.5MG/325MG TABLET(HYDROCODONE/APAP) PO SCH ×3 (05:53→18:45)
[2021-07-14] MEDS: LEVOTHYROXINE 125MCG TABLET (0.125MG) PO SCH (05:53)
[2021-07-14 06:00] VITALS: BP 129/62
[2021-07-14] MEDS: LEVEMIR (INSULIN DETEMIR) 1 UNITS/0.01ML SC SCH ×2 (08:54→21:22)
[2021-07-14] MEDS: HumaLOG INSULIN (NovoLOG) PER UNIT SC SCH ×4 (08:54→21:00)
[2021-07-14] MEDS: SODIUM CHLORIDE NASAL 0.65% SPRAY BTL (OCEAN) SCH ×2 (08:55→21:00)
[2021-07-14] MEDS: ENOXAPARIN 40MG/0.4ML SYRINGE (J1650 PER 10MG) SC SCH (08:55)
[2021-07-14] MEDS: MUPIROCIN 2% OINT 22 GM TUBE TOP SCH ×2 (08:56→21:00)
[2021-07-14] MEDS: REMEDY PHYTOPLEX Z-GUARD PASTE 113GM TUBE (FROM STOREROOM PRODUCT) TOP SCH ×3 (08:57→21:00)
[2021-07-14] MEDS: MULTIVITAMINS/MINERALS THERAP 1 TAB PO SCH (09:03)
[2021-07-14] MEDS: ASPIRIN 81MG ENTERIC TABLET PO SCH (09:03)
[2021-07-14] MEDS: GABAPENTIN 100 MG CAP PO SCH ×3 (09:03→21:21)
[2021-07-14] MEDS: LACTOBACILLUS ACIDOPHILUS CAP (BACID) PO SCH ×2 (09:03→17:50)
[2021-07-14] MEDS: PANTOPRAZOLE 40MG TAB (PROTONIX) PO SCH (09:03)
[2021-07-14] MEDS: DOCUSATE SODIUM 100MG CAPSULE PO SCH ×2 (09:03→21:21)
[2021-07-14] MEDS: FOLIC ACID 1 MG TAB PO SCH (09:03)
[2021-07-14] MEDS: FUROSEMIDE 40 MG TAB PO SCH (09:04)
[2021-07-14] MEDS: ACETAMINOPHEN TAB 650MG DOSE (2X325MG) PO SCH ×3 (09:04→21:21)
[2021-07-14 14:00] VITALS: BP 140/65
[2021-07-14 20:00] VITALS: BP 128/60
[2021-07-14] MEDS: TAMSULOSIN 0.4 MG CAP PO SCH (21:21)
[2021-07-14] MEDS: SENNA 8.6 MG TAB (SENOKOT) PO SCH (21:21)
[2021-07-14] MEDS: SIMVASTATIN 40 MG TAB PO SCH (21:22)
[2021-07-15 04:42] VITALS: BP 128/67
[2021-07-15] MEDS: LEVOTHYROXINE 125MCG TABLET (0.125MG) PO SCH (05:38)
[2021-07-15] MEDS: ANEXSIA, NORCO 7.5MG/325MG TABLET(HYDROCODONE/APAP) PO SCH ×3 (05:39→17:02)
[2021-07-15] MEDS: HumaLOG INSULIN (NovoLOG) PER UNIT SC SCH ×4 (08:20→19:59)
[2021-07-15] MEDS: FOLIC ACID 1 MG TAB PO SCH (08:20)
[2021-07-15] MEDS: LEVEMIR (INSULIN DETEMIR) 1 UNITS/0.01ML SC SCH ×2 (08:20→20:05)
[2021-07-15] MEDS: PANTOPRAZOLE 40MG TAB (PROTONIX) PO SCH (08:20)
[2021-07-15] MEDS: LACTOBACILLUS ACIDOPHILUS CAP (BACID) PO SCH ×2 (08:21→17:02)
[2021-07-15] MEDS: MULTIVITAMINS/MINERALS THERAP 1 TAB PO SCH (08:21)
[2021-07-15] MEDS: ASPIRIN 81MG ENTERIC TABLET PO SCH (08:21)
[2021-07-15] MEDS: FUROSEMIDE 40 MG TAB PO SCH (08:21)
[2021-07-15] MEDS: ACETAMINOPHEN TAB 650MG DOSE (2X325MG) PO SCH ×3 (08:21→20:05)
[2021-07-15] MEDS: DOCUSATE SODIUM 100MG CAPSULE PO SCH ×2 (08:21→19:58)
[2021-07-15] MEDS: GABAPENTIN 100 MG CAP PO SCH ×3 (08:21→20:05)
[2021-07-15] MEDS: MUPIROCIN 2% OINT 22 GM TUBE TOP SCH ×2 (08:22→20:06)
[2021-07-15] MEDS: SODIUM CHLORIDE NASAL 0.65% SPRAY BTL (OCEAN) SCH ×2 (08:22→19:59)
[2021-07-15] MEDS: REMEDY PHYTOPLEX Z-GUARD PASTE 113GM TUBE (FROM STOREROOM PRODUCT) TOP SCH ×3 (08:22→19:59)
[2021-07-15] MEDS: ENOXAPARIN 40MG/0.4ML SYRINGE (J1650 PER 10MG) SC SCH (08:22)
[2021-07-15 14:00] VITALS: BP 155/66
[2021-07-15] MEDS: SENNA 8.6 MG TAB (SENOKOT) PO SCH (19:59)
[2021-07-15 20:00] VITALS: BP 121/61
[2021-07-15] MEDS: SIMVASTATIN 40 MG TAB PO SCH (20:05)
[2021-07-15] MEDS: TAMSULOSIN 0.4 MG CAP PO SCH (20:05)
[2021-07-16] MEDS: ANEXSIA, NORCO 7.5MG/325MG TABLET(HYDROCODONE/APAP) PO SCH ×2 (05:44→12:00)
[2021-07-16] MEDS: LEVOTHYROXINE 125MCG TABLET (0.125MG) PO SCH (05:44)
[2021-07-16 06:00] VITALS: BP 130/75
[2021-07-16] MEDS: GABAPENTIN 100 MG CAP PO SCH (08:48)
[2021-07-16] MEDS: ACETAMINOPHEN TAB 650MG DOSE (2X325MG) PO SCH (08:49)
[2021-07-16] MEDS: LACTOBACILLUS ACIDOPHILUS CAP (BACID) PO SCH (08:49)
[2021-07-16 08:50] VITALS: BP 130/75
[2021-07-16] MEDS: PANTOPRAZOLE 40MG TAB (PROTONIX) PO SCH (08:50)
[2021-07-16] MEDS: FUROSEMIDE 40 MG TAB PO SCH (08:50)
[2021-07-16] MEDS: FOLIC ACID 1 MG TAB PO SCH (08:50)
[2021-07-16] MEDS: ASPIRIN 81MG ENTERIC TABLET PO SCH (08:50)
[2021-07-16] MEDS: MULTIVITAMINS/MINERALS THERAP 1 TAB PO SCH (08:50)
[2021-07-16] MEDS: DOCUSATE SODIUM 100MG CAPSULE PO SCH (08:50)
[2021-07-16] MEDS: LEVEMIR (INSULIN DETEMIR) 1 UNITS/0.01ML SC SCH (08:51)
[2021-07-16] MEDS: ENOXAPARIN 40MG/0.4ML SYRINGE (J1650 PER 10MG) SC SCH (08:51)
[2021-07-16] MEDS: MUPIROCIN 2% OINT 22 GM TUBE TOP SCH (08:52)
[2021-07-16] MEDS: SODIUM CHLORIDE NASAL 0.65% SPRAY BTL (OCEAN) SCH (08:52)
[2021-07-16] MEDS: REMEDY PHYTOPLEX Z-GUARD PASTE 113GM TUBE (FROM STOREROOM PRODUCT) TOP SCH (08:52)
[2021-07-16] MEDS: HumaLOG INSULIN (NovoLOG) PER UNIT SC SCH ×2 (09:04→12:01)
[2021-07-16] MEDS ORDERED: SIMV40TA20 PO (10:32)
[2021-07-16] MEDS ORDERED: GABA-1171 PO (10:32)
[2021-07-16] MEDS ORDERED: HYDR-4514 PO (10:32)
[2021-07-16] MEDS ORDERED: FOLI1TAB11 PO (10:32)
[2021-07-16] MEDS ORDERED: SYNT125T PO (10:32)
[2021-07-16] MEDS ORDERED: ASPI81TA26 PO (10:32)
[2021-07-16] MEDS ORDERED: FLOM0.4C39 PO (10:32)
[2021-07-16] MEDS ORDERED: AMLO1TAB25 PO (10:32)
[2021-07-16] MEDS ORDERED: FURO40TA2 PO (10:32)
[2021-07-16 14:00] VITALS: BP 142/65
== END 2021-07-16 15:00 | disposition home health service (06) | DRG 862 ==
LOC: M PM&R 14:00
PROVIDERS: ADMIT Physical Medicine & Rehabilitation; ATTEND Physical Medicine & Rehabilitation
DX: Z47.81 Encounter for orthopedic aftercare following surgical amputation (principal); Z89.612 Acquired absence of left leg above knee; E11.42 Type 2 diabetes mellitus with diabetic polyneuropathy; I11.0 Hypertensive heart disease with heart failure; E03.9 Hypothyroidism, unspecified; F10.10 Alcohol abuse, uncomplicated; E78.5 Hyperlipidemia, unspecified; E66.9 Obesity, unspecified; I50.9 Heart failure, unspecified; Z74.09 Other reduced mobility; Z74.1 Need for assistance with personal care; R39.11 Hesitancy of micturition; D64.9 Anemia, unspecified; Z87.891 Personal history of nicotine dependence; Z89.421 Acquired absence of other right toe(s); Z79.82 Long term (current) use of aspirin; Z79.4 Long term (current) use of insulin; Z79.891 Long term (current) use of opiate analgesic; Z79.899 Other long term (current) drug therapy; Z91.030 Bee allergy status; Z91.040 Latex allergy status; Z68.38 Body mass index [BMI] 38.0-38.9, adult; F32.A Depression, unspecified

== ENCOUNTER 2021-08-27 14:16 | Emergency (ER) | payer OTHER ==
[~2021-08-27] VITALS: Ht 182.9 cm; Wt 137.3 kg
[~2021-08-27 14:16] MED LIST changes: -AZIT-12 PO; -BASA100I SC; -BENZ200C70 PO; -LASI20TA3 PO; -LEVO125T4 PO; -PROBCAP14 PO
[2021-08-27] MEDS ORDERED: NS 1,000 ML IV ONE (20:00)
[2021-08-27] MEDS ORDERED: BENZONATATE 100MG CAPSULE PO ONE (20:00)
[2021-08-27] MEDS ORDERED: ACETAMINOPHEN 500 MG TAB PO ONE (20:20)
[2021-08-27 20:36] LABS: BASO % 0.8 % (0.0-1.0); EOS # 0.3 10^3/uL (0.0-0.5); EOS % 5.4 % (0.0-3.0); LYMPH # 1.2 10^3/uL (1.5-5.0); LYMPH % 25.1 % (24.0-44.0); MEAN CORPUSCULAR HEMOGLOBIN 27.8 pg (27.0-33.0); MEAN CORPUSCULAR HGB CONC 31.4 g/dl (32.0-36.5); MEAN CORPUSCULAR VOLUME 88.6 fl (80.0-96.0); MONO # 0.4 10^3/uL (0.0-0.8); MONO % 7.5 % (2.0-8.0); NEUTROPHILS # 2.9 10^3/uL (1.5-8.5); NEUTROPHILS % 60.4 % (36.0-66.0); PLATELET COUNT, AUTOMATED 265 10^3/uL (150-450); RED BLOOD COUNT 3.95 10^6/uL (4.30-6.10); WHITE BLOOD COUNT 4.8 10^3/uL (4.0-10.0)
[2021-08-27 20:53] LABS: CK-MB VALUE MASS 3.3 NG/ML (<3.6); MB/CK RELATIVE INDEX 1.3 (< OR =4)
[2021-08-27 21:14] LABS: BLOOD UREA NITROGEN 11 MG/DL (7-18); C REACTIVE PROTEIN QUANTITATIV 1.13 MG/DL (0.00-0.30); CARBON DIOXIDE LEVEL 31 MEQ/L (21-32); CHLORIDE LEVEL 108 MEQ/L (98-107); CREATININE FOR GFR 0.87 MG/DL (0.70-1.30); ERYTHROCYTE SEDIMENTATION RATE 44 mm/hr (0-20); GLOMERULAR FILTRATION RATE > 60.0 (>56); GLUCOSE, FASTING 173 MG/DL (70-100); NT-PRO BNP 793 PG/ML (<125); POTASSIUM SERUM 3.6 MEQ/L (3.5-5.1); SODIUM LEVEL 143 MEQ/L (136-145)
[2021-08-27] MEDS ORDERED: ISOVUE-370 76% 100ML VIAL As Ordered ONE (22:14)
[2021-08-27] MEDS ORDERED: PROBCAP14 PO (22:23)
[2021-08-27] MEDS ORDERED: FLOM0.4C39 PO (22:23)
[2021-08-27] MEDS ORDERED: SIMV40TA20 PO (22:23)
[2021-08-27] MEDS ORDERED: LEVO125T4 PO (22:23)
[2021-08-27] MEDS ORDERED: GABA-1171 PO (22:23)
[2021-08-27] MEDS ORDERED: ASPI81TA26 PO (22:23)
[2021-08-27] MEDS ORDERED: BASA100I SC (22:23)
[2021-08-27] MEDS ORDERED: FOLI1TAB11 PO (22:23)
[2021-08-27] MEDS ORDERED: FURO40TA2 PO (22:23)
[2021-08-27] MEDS ORDERED: AMLO1TAB25 PO (22:23)
[2021-08-27] MEDS ORDERED: HOME MED LIST COMPLETE! XX SCH (22:25)
[2021-08-28 00:30] VITALS: BP 185/89
[2021-08-28] MEDS ORDERED: cloNIDine 0.1MG TABLET PO ONE (00:35)
[2021-08-28 00:44] VITALS: BP 185/85
[2021-08-28 01:05] LABS: CK-MB VALUE MASS 3.4 NG/ML (<3.6); MB/CK RELATIVE INDEX 1.28 (< OR =4)
[2021-08-28 01:15] LABS: RSV AMPLIFICATION NEGATIVE (NEGATIVE)
[2021-08-28] MEDS ORDERED: AZITHROMYCIN 250MG TABLET PO ONE (01:55)
[2021-08-28] MEDS ORDERED: LASI20TA3 PO (01:59)
[2021-08-28] MEDS ORDERED: FUROSEMIDE 40MG/4ML VIAL (J1940) IV STA (01:59)
[2021-08-28] MEDS ORDERED: BENZ200C70 PO (01:59)
[2021-08-28] MEDS ORDERED: AZIT-12 PO (01:59)
[2021-08-28] MEDS ORDERED: FUROSEMIDE 40 MG TAB PO ONE (02:30)
[2021-08-28] MEDS ORDERED: FUROSEMIDE 40MG/4ML VIAL (J1940) IV SCH (09:00)
== END 2021-08-28 02:40 | disposition home or self-care (01) ==
LOC: M ED 14:16 → UNDOADMOB 14:17 → M ED INP 14:17 → UNDODISOB 08-28 02:22
DX: J96.12 Chronic respiratory failure with hypercapnia (principal); I10 Essential (primary) hypertension; E78.5 Hyperlipidemia, unspecified; E11.9 Type 2 diabetes mellitus without complications; Z79.4 Long term (current) use of insulin; Z79.899 Other long term (current) drug therapy; Z79.82 Long term (current) use of aspirin; Z87.891 Personal history of nicotine dependence; F41.9 Anxiety disorder, unspecified
CPT/HCPCS: 71260; 80048; 82550; 82553; 83605; 83880; 85025; 85652; 86140; 87631; 93005; 96374; 99284; Q9967

== ENCOUNTER → 2021-08-27 | Outpatient (CLI) | payer OTHER ==
[~2021-08-27] MED LIST changes: +AZIT-12 PO; +BASA100I SC; +BENZ200C70 PO; +FLOM0.4C39 PO; +FOLI1TAB11 PO; +FURO40TA2 PO; +GABA-1171 PO; +LASI20TA3 PO; +LEVO125T4 PO; +PROBCAP14 PO
== END ==
LOC: M WUC 11:10
PROVIDERS: ATTEND Nurse Practitioner Family
DX: R06.09 Other forms of dyspnea (principal)

== ENCOUNTER → 2022-06-22 | Outpatient (REF) | payer OTHER ==
[~2022-06-22] MED LIST changes: +AZIT-12 PO; +BASA100I SC; +BENZ200C70 PO; +LASI20TA3 PO; +LEVO125T4 PO; +PROBCAP14 PO
[2022-06-22 14:24] LABS: BASO # 0.1 10^3/uL (0.0-0.2); BASO % 0.9 % (0.0-1.0); EOS # 0.3 10^3/uL (0.0-0.5); EOS % 5.1 % (0.0-3.0); HEMATOCRIT 28.1 % (42.0-52.0); HEMOGLOBIN 8.5 g/dl (13.5-17.5); LYMPH # 1.3 10^3/uL (1.5-5.0); LYMPH % 20.4 % (24.0-44.0); MEAN CORPUSCULAR HEMOGLOBIN 27.7 pg (27.0-33.0); MEAN CORPUSCULAR HGB CONC 30.2 g/dl (32.0-36.5); MEAN CORPUSCULAR VOLUME 91.5 fl (80.0-96.0); MONO # 0.4 10^3/uL (0.0-0.8); MONO % 6.8 % (2.0-8.0); NEUTROPHILS # 4.3 10^3/uL (1.5-8.5); NEUTROPHILS % 65.9 % (36.0-66.0); PLATELET COUNT, AUTOMATED 294 10^3/uL (150-450); RED BLOOD COUNT 3.07 10^6/uL (4.30-6.10); WHITE BLOOD COUNT 6.5 10^3/uL (4.0-10.0)
[2022-06-22 14:35] LABS: HEMOGLOBIN A1c 6.2 % (4.0-6.0)
[2022-06-22 14:54] LABS: THYROID STIMULATING HORMONE 18.853 uIU/ML (0.55-4.78)
[2022-06-22 15:03] LABS: ALBUMIN 2.4 G/DL (3.2-5.2); BILIRUBIN,TOTAL 0.4 MG/DL (0.3-1.2); CALCIUM LEVEL 8.7 MG/DL (8.5-10.1); CHOLESTEROL RISK RATIO 2.58 (<5); CREATININE FOR GFR 2.39 MG/DL (0.70-1.30); GLOMERULAR FILTRATION RATE 30.4 (>56); HDL CHOLESTEROL 67.8 MG/DL (>40); LDL CHOLESTEROL 95.2 MG/DL (<100); POTASSIUM SERUM 5.3 MMOL/L (3.5-5.1); TOTAL PROTEIN 5.7 G/DL (5.7-8.2)
== END ==
LOC: M LAB REF 12:28
PROVIDERS: ATTEND Nurse Practitioner Family
DX: Z13.228 Encounter for screening for other metabolic disorders (principal)

== ENCOUNTER → 2022-07-05 | Outpatient (REF) | payer OTHER ==
[2022-07-05 13:43] LABS: BASO # 0.1 10^3/uL (0.0-0.2); BASO % 1.1 % (0.0-1.0); EOS # 0.3 10^3/uL (0.0-0.5); EOS % 5.3 % (0.0-3.0); HEMATOCRIT 28.4 % (42.0-52.0); HEMOGLOBIN 8.4 g/dl (13.5-17.5); LYMPH # 0.8 10^3/uL (1.5-5.0); LYMPH % 14.8 % (24.0-44.0); MEAN CORPUSCULAR HEMOGLOBIN 27.1 pg (27.0-33.0); MEAN CORPUSCULAR HGB CONC 29.6 g/dl (32.0-36.5); MEAN CORPUSCULAR VOLUME 91.6 fl (80.0-96.0); MONO # 0.4 10^3/uL (0.0-0.8); MONO % 7.9 % (2.0-8.0); NEUTROPHILS # 3.8 10^3/uL (1.5-8.5); NEUTROPHILS % 70.2 % (36.0-66.0); PLATELET COUNT, AUTOMATED 281 10^3/uL (150-450); WHITE BLOOD COUNT 5.5 10^3/uL (4.0-10.0)
[2022-07-05 14:17] LABS: MAGNESIUM LEVEL 1.7 MG/DL (1.8-2.4)
[2022-07-05 14:18] LABS: ALBUMIN 2.6 G/DL (3.2-5.2); BILIRUBIN,TOTAL 0.4 MG/DL (0.3-1.2); CALCIUM LEVEL 8.9 MG/DL (8.5-10.1); GLOMERULAR FILTRATION RATE 23.4 (>56); POTASSIUM SERUM 4.6 MMOL/L (3.5-5.1)
== END ==
LOC: M LAB REF 12:53
PROVIDERS: ATTEND Nurse Practitioner Family
DX: D64.9 Anemia, unspecified (principal); Z13.228 Encounter for screening for other metabolic disorders

== ENCOUNTER → 2022-08-06 | Outpatient (REF) | payer OTHER ==
[2022-08-06 13:31] LABS: ALBUMIN 2.5 G/DL (3.2-5.2); BILIRUBIN,TOTAL 0.5 MG/DL (0.3-1.2); CHOLESTEROL RISK RATIO 2.01 (<5); CREATININE FOR GFR 3.2 MG/DL (0.70-1.30); GLOMERULAR FILTRATION RATE 21.7 (>56); HDL CHOLESTEROL 54.1 MG/DL (>40); LDL CHOLESTEROL 42.1 MG/DL (<100); POTASSIUM SERUM 5.2 MMOL/L (3.5-5.1); THYROID STIMULATING HORMONE 3.588 uIU/ML (0.55-4.78)
== END ==
LOC: M LAB REF 11:19
PROVIDERS: ATTEND Nurse Practitioner Family
DX: I10 Essential (primary) hypertension (principal); E03.9 Hypothyroidism, unspecified; E78.5 Hyperlipidemia, unspecified

== ENCOUNTER → 2022-10-11 | Outpatient (REF) | payer OTHER ==
[~2022-10-11] MED LIST changes: +ACET-683 PO; +CEPH500C PO; +D3 S20002 PO; +ERGO500029 PO; +METO1TAB7; +MULT400T10 PO; +RA S EX; +TRAM50TA2; +VITMTA PO
[2022-10-11 17:55] LABS: BASO # 0.1 10^3/uL (0.0-0.2); BASO % 1.2 % (0.0-1.0); EOS # 0.5 10^3/uL (0.0-0.5); EOS % 7.3 % (0.0-3.0); HEMOGLOBIN 7.8 g/dl (13.5-17.5); MEAN CORPUSCULAR HEMOGLOBIN 26.5 pg (27.0-33.0); MEAN CORPUSCULAR VOLUME 88.4 fl (80.0-96.0); MONO # 0.4 10^3/uL (0.0-0.8); NEUTROPHILS # 5.2 10^3/uL (1.5-8.5); NEUTROPHILS % 70.7 % (36.0-66.0); PLATELET COUNT, AUTOMATED 271 10^3/uL (150-450); RED BLOOD COUNT 2.94 10^6/uL (4.30-6.10); WHITE BLOOD COUNT 7.4 10^3/uL (4.0-10.0)
[2022-10-11 18:11] LABS: BILIRUBIN,TOTAL 0.6 MG/DL (0.3-1.2); CALCIUM LEVEL 8.6 MG/DL (8.5-10.1); CREATININE FOR GFR 2.9 MG/DL (0.70-1.30); GLOMERULAR FILTRATION RATE 24.4 (>56); POTASSIUM SERUM 5.3 MMOL/L (3.5-5.1); TOTAL PROTEIN 6.9 G/DL (5.7-8.2)
== END ==
LOC: M LAB REF 16:22
PROVIDERS: ATTEND Nurse Practitioner Family
DX: Z01.818 Encounter for other preprocedural examination (principal); D64.9 Anemia, unspecified

== ENCOUNTER → 2022-11-22 | Outpatient (REF) | payer OTHER ==
[~2022-11-22] MED LIST changes: +LISI20TA37; +SENN-111 PO; -SENN18TA PO
[2022-11-22 08:41] LABS: HEMATOCRIT 26.6 % (42.0-52.0); MEAN CORPUSCULAR HEMOGLOBIN 26.7 pg (27.0-33.0); MEAN CORPUSCULAR HGB CONC 30.1 g/dl (32.0-36.5); MEAN CORPUSCULAR VOLUME 88.7 fl (80.0-96.0); PLATELET COUNT, AUTOMATED 285 10^3/uL (150-450); WHITE BLOOD COUNT 6.8 10^3/uL (4.0-10.0)
[2022-11-22 08:55] LABS: HEMOGLOBIN A1c 5.6 % (4.0-6.0)
[2022-11-22 09:11] LABS: BILIRUBIN,TOTAL 0.5 MG/DL (0.3-1.2); CALCIUM LEVEL 8.9 MG/DL (8.5-10.1); CHOLESTEROL RISK RATIO 2.07 (<5); CREATININE FOR GFR 3.14 MG/DL (0.70-1.30); GLOMERULAR FILTRATION RATE 22.1 (>56); HDL CHOLESTEROL 59.2 MG/DL (>40); LDL CHOLESTEROL 53.4 MG/DL (<100); NON-HDL-C 63.8 MG/DL; PHOSPHORUS LEVEL 6.2 MG/DL (2.5-4.9); POTASSIUM SERUM 5.6 MMOL/L (3.5-5.1); THYROID STIMULATING HORMONE 3.918 uIU/ML (0.55-4.78); TOTAL PROTEIN 6.4 G/DL (5.7-8.2)
== END ==
LOC: SKLAB5 14:33
PROVIDERS: ATTEND Internal Medicine
DX: D64.9 Anemia, unspecified (principal)

== ENCOUNTER 2022-12-06 14:19 | Inpatient (IN) | payer OTHER ==
[2022-12-06] VITALS (9 sets, daily range): BP systolic 144–185; BP diastolic 65–88; TEMP 96.4–97.7; O2SAT 90–97
[~2022-12-06] VITALS: Ht 182.9 cm; Wt 121.5 kg
[~2022-12-06 14:19] MED LIST changes: -METO1TAB7; +METO1TAB7 PO
[2022-12-06] MEDS ORDERED: OXYMETAZOLINE 0.05% NASAL SPRAY (AFRIN) ONE (15:05)
[2022-12-06 15:44] LABS: BASO # 0.1 10^3/uL (0.0-0.2); EOS # 0.4 10^3/uL (0.0-0.5); HEMATOCRIT 24.6 % (42.0-52.0); HEMOGLOBIN 7.1 g/dl (13.5-17.5); LYMPH # 0.8 10^3/uL (1.5-5.0); LYMPH % 16.3 % (24.0-44.0); MEAN CORPUSCULAR HEMOGLOBIN 26.7 pg (27.0-33.0); MEAN CORPUSCULAR HGB CONC 28.9 g/dl (32.0-36.5); MEAN CORPUSCULAR VOLUME 92.5 fl (80.0-96.0); MONO # 0.4 10^3/uL (0.0-0.8); MONO % 8.6 % (2.0-8.0); NEUTROPHILS # 3.4 10^3/uL (1.5-8.5); NEUTROPHILS % 65.3 % (36.0-66.0); PLATELET COUNT, AUTOMATED 184 10^3/uL (150-450); RED BLOOD COUNT 2.66 10^6/uL (4.30-6.10); WHITE BLOOD COUNT 5.1 10^3/uL (4.0-10.0)
[2022-12-06 17:05] LABS: INR 1.26; PROTHROMBIN TIME 16.1 SECONDS (12.5-14.5)
[2022-12-06 17:06] LABS: PARTIAL THROMBOPLASTIN TIME 36.4 SECONDS (24.8-34.2)
[2022-12-06 17:26] LABS: RSV AMPLIFICATION NEGATIVE (NEGATIVE)
[2022-12-06 17:30] LABS: CALCIUM LEVEL 8.3 MG/DL (8.5-10.1); CREATININE FOR GFR 4.2 MG/DL (0.70-1.30); GLOMERULAR FILTRATION RATE 15.8 (>56); POTASSIUM SERUM 6.6 MMOL/L (3.5-5.1)
[2022-12-06] MEDS ORDERED: DEXTROSE 50% 50ML SYRINGE IV STA (17:36)
[2022-12-06] MEDS ORDERED: HumuLIN R (REGULAR) INSULIN (NovoLIN R) **100U/ML** PER UNIT IV ONE (17:40)
[2022-12-06] MEDS ORDERED: CALCIUM GLUCONATE 1,000 MG in D5W MINI-BAG PLUS 100 ML IV ONE (17:40)
[2022-12-06] MEDS ORDERED: PATIROMER SORBITEX CALCIUM 8.4 GM POWDER PACKET (VELTASSA) PO ONE (17:45)
[2022-12-06] MEDS ORDERED: SODIUM BICARBONATE 150 MEQ in D5W 1,000 ML IV SCH (17:45)
[2022-12-06] MEDS ORDERED: MED REC IN PROGRESS XX SCH (18:10)
[2022-12-06] MEDS ORDERED: FUROSEMIDE 40MG/4ML VIAL IV ONE (18:25)
[2022-12-06] MEDS ORDERED: GLUCOSE 4GM CHEW TABLET PO PRN (18:50)
[2022-12-06] MEDS ORDERED: GLUCAGON INJ 1MG VIAL SC PRN (18:50)
[2022-12-06] MEDS ORDERED: DEXTROSE 50% 50ML SYRINGE IV PRN (18:50)
[2022-12-06 19:27] LABS: MAGNESIUM LEVEL 1.9 MG/DL (1.8-2.4); PHOSPHORUS LEVEL 6.9 MG/DL (2.5-4.9)
[2022-12-06] MEDS: INSULIN LISPRO (NovoLOG) PER UNIT SC SCH (20:38)
[2022-12-06] MEDS ORDERED: BISA10SU27 PR (20:54)
[2022-12-06] MEDS ORDERED: LISI10TA22 PO (20:54)
[2022-12-06] MEDS ORDERED: GABA-282 PO (20:54)
[2022-12-06] MEDS ORDERED: MILKSUS3 PO (20:54)
[2022-12-06] MEDS ORDERED: FURO40TA2 PO (20:54)
[2022-12-06] MEDS ORDERED: CARV12.5 PO (20:54)
[2022-12-06] MEDS ORDERED: FLEEENE12 PR (20:54)
[2022-12-06] MEDS ORDERED: AMLO1TAB24 PO (20:54)
[2022-12-06] MEDS ORDERED: HOME MED LIST COMPLETE! XX SCH (21:00)
[2022-12-06] MEDS ORDERED: CARVedilol 12.5 MG TAB PO SCH (21:00)
[2022-12-06] MEDS ORDERED: FLUTICASONE PROP 0.05% NASAL SPRAY 16 GM (FLONASE) NARES SCH (21:00)
[2022-12-06] MEDS ORDERED: GABAPENTIN 300 MG CAP PO SCH (21:00)
[2022-12-06] MEDS ORDERED: **hydrALAZINE HCL** 25 MG TAB PO SCH (22:00)
[2022-12-06] MEDS: GABAPENTIN 100 MG CAP PO SCH (22:26)
[2022-12-06] MEDS: SIMVASTATIN 40 MG TAB PO SCH (22:27)
[2022-12-07] VITALS (7 sets, daily range): BP systolic 160–184; BP diastolic 71–90; TEMP 97.1–98.4; O2SAT 92–98
[2022-12-07 02:23] LABS: HEMATOCRIT 28.5 % (42.0-52.0); HEMOGLOBIN 8.8 g/dl (13.5-17.5)
[2022-12-07 02:47] LABS: CALCIUM LEVEL 8.6 MG/DL (8.5-10.1); CREATININE FOR GFR 4.03 MG/DL (0.70-1.30); GLOMERULAR FILTRATION RATE 16.6 (>56); POTASSIUM SERUM 5.8 MMOL/L (3.5-5.1)
[2022-12-07] MEDS: LEVOTHYROXINE 125MCG TABLET (0.125MG) PO SCH (05:12)
[2022-12-07] MEDS: SODIUM BICARBONATE 150 MEQ in D5W 1,000 ML IV SCH ×3 (05:12→20:51)
[2022-12-07 06:19] LABS: BASO # 0.1 10^3/uL (0.0-0.2); BASO % 0.8 % (0.0-1.0); EOS # 0.4 10^3/uL (0.0-0.5); EOS % 7.1 % (0.0-3.0); HEMATOCRIT 27.4 % (42.0-52.0); HEMOGLOBIN 8.7 g/dl (13.5-17.5); LYMPH # 1.1 10^3/uL (1.5-5.0); LYMPH % 18.5 % (24.0-44.0); MEAN CORPUSCULAR HEMOGLOBIN 27.6 pg (27.0-33.0); MEAN CORPUSCULAR HGB CONC 31.8 g/dl (32.0-36.5); MONO # 0.4 10^3/uL (0.0-0.8); MONO % 6.6 % (2.0-8.0); NEUTROPHILS % 66.3 % (36.0-66.0); PLATELET COUNT, AUTOMATED 190 10^3/uL (150-450); RED BLOOD COUNT 3.15 10^6/uL (4.30-6.10)
[2022-12-07 06:46] LABS: ALBUMIN 3.1 G/DL (3.2-5.2); BILIRUBIN,TOTAL 1.1 MG/DL (0.3-1.2); CALCIUM LEVEL 8.7 MG/DL (8.5-10.1); CREATININE FOR GFR 3.96 MG/DL (0.70-1.30); GLOMERULAR FILTRATION RATE 16.9 (>56); MAGNESIUM LEVEL 1.8 MG/DL (1.8-2.4); POTASSIUM SERUM 5.5 MMOL/L (3.5-5.1); TOTAL PROTEIN 6.2 G/DL (5.7-8.2)
[2022-12-07 07:24] LABS: PERCENT SATURATION 47.6 % (19.7-50.0)
[2022-12-07] MEDS: INSULIN LISPRO (NovoLOG) PER UNIT SC SCH ×4 (07:58→20:13)
[2022-12-07] MEDS ORDERED: METOPROLOL SUCC (TopROL XL) 50MG **XL** TAB PO SCH (09:00)
[2022-12-07] MEDS ORDERED: GABAPENTIN 300 MG CAP PO SCH (09:00)
[2022-12-07] MEDS: BISACODYL 10MG SUPP PR SCH (09:00)
[2022-12-07] MEDS ORDERED: FUROSEMIDE 100MG/10ML VIAL IV ONE (09:45)
[2022-12-07] MEDS: TAMSULOSIN 0.4 MG CAP PO SCH (09:49)
[2022-12-07] MEDS: FINASTERIDE 5MG TAB PO SCH (09:49)
[2022-12-07] MEDS: GABAPENTIN 100 MG CAP PO SCH ×3 (09:49→20:48)
[2022-12-07 10:09] LABS: TOTAL 25(OH) VITAMIN D 54.1 NG/ML (20.0-100.0)
[2022-12-07] MEDS ORDERED: PATIROMER SORBITEX CALCIUM 8.4 GM POWDER PACKET (VELTASSA) PO SCH (12:00)
[2022-12-07 14:51] LABS: APPEARANCE, URINE CLEAR (CLEAR); BACTERIA, URINE AUTO NEGATIVE (NEGATIVE); BILIRUBIN, URINE AUTO NEGATIVE (NEGATIVE); BLOOD, URINE BLOOD 1+ (NEGATIVE); COLOR, URINE STRAW (YELLOW); GLUCOSE, URINE (UA) AUTO 1+ mg/dL (NEGATIVE); KETONE, URINE AUTO NEGATIVE (NEGATIVE); LEUKOCYTE ESTERASE, URINE AUTO NEGATIVE (NEGATIVE); NITRITE, URINE AUTO NEGATIVE (NEGATIVE); PROTEIN, URINE AUTO 2+ mg/dL (NEGATIVE); RBC, URINE AUTO 1 /HPF (0-3); SPECIFIC GRAVITY URINE AUTO 1.006 (1.002-1.035); SQUAMOUS EPITHELIAL CELL UR AU 0 /HPF (0-6); UROBILINOGEN, URINE AUTO 0.2 mg/dL (0.0-2.0); WBC, URINE AUTO 1 /HPF (0-3)
[2022-12-07 15:16] LABS: TOTAL PROTEIN,RANDOM URINE 116.9 MG/DL (0.0-14.0)
[2022-12-07 15:20] LABS: CREATININE,RANDOM URINE 16.3 MG/DL
[2022-12-07] MEDS ORDERED: hydrALAZINE 20MG/ML 1ML VIAL IV PRN (15:55)
[2022-12-07] MEDS ORDERED: ACETAMINOPHEN TAB 650MG DOSE (2X325MG) PO ONE (20:10)
[2022-12-07] MEDS ORDERED: OXYMETAZOLINE 0.05% NASAL SPRAY (AFRIN) ONE (20:15)
[2022-12-07 20:18] LABS: ALBUMIN 2.9 G/DL (3.2-5.2); ALKALINE PHOSPHATASE 284 U/L (46-116); ALT/SGPT 17 U/L (7.0-40); AST/SGOT < 8 U/L (<34); BILIRUBIN,TOTAL 0.7 MG/DL (0.3-1.2); BLOOD UREA NITROGEN 68 MG/DL (9-23); CALCIUM LEVEL 9.2 MG/DL (8.5-10.1); CARBON DIOXIDE LEVEL 20 MMOL/L (20-31); CHLORIDE LEVEL 109 MMOL/L (98-107); CREATININE FOR GFR 3.76 MG/DL (0.70-1.30); GLUCOSE, FASTING 139 MG/DL (60-100); SODIUM LEVEL 138 MMOL/L (136-145)
[2022-12-07] MEDS: SIMVASTATIN 40 MG TAB PO SCH (20:48)
[2022-12-08] VITALS: BP 178/82; TEMP 98.3; O2SAT 93
[2022-12-08 04:00] VITALS: BP 172/88; TEMP 97.6; O2SAT 98
[2022-12-08] MEDS: SODIUM BICARBONATE 150 MEQ in D5W 1,000 ML IV SCH (04:53)
[2022-12-08] MEDS: LEVOTHYROXINE 125MCG TABLET (0.125MG) PO SCH (05:40)
[2022-12-08 06:11] LABS: HEMATOCRIT 26.4 % (42.0-52.0); HEMOGLOBIN 8.3 g/dl (13.5-17.5); MEAN CORPUSCULAR HEMOGLOBIN 26.9 pg (27.0-33.0); MEAN CORPUSCULAR HGB CONC 31.4 g/dl (32.0-36.5); MEAN CORPUSCULAR VOLUME 85.7 fl (80.0-96.0); PLATELET COUNT, AUTOMATED 182 10^3/uL (150-450); RED BLOOD COUNT 3.08 10^6/uL (4.30-6.10); WHITE BLOOD COUNT 5.8 10^3/uL (4.0-10.0)
[2022-12-08 06:26] LABS: ALBUMIN 2.9 G/DL (3.2-5.2); ALKALINE PHOSPHATASE 281 U/L (46-116); ALT/SGPT 16 U/L (7.0-40); AST/SGOT < 8 U/L (<34); BILIRUBIN,TOTAL 0.8 MG/DL (0.3-1.2); BLOOD UREA NITROGEN 64 MG/DL (9-23); CALCIUM LEVEL 9.1 MG/DL (8.5-10.1); CARBON DIOXIDE LEVEL 22 MMOL/L (20-31); CHLORIDE LEVEL 109 MMOL/L (98-107); CREATININE FOR GFR 3.68 MG/DL (0.70-1.30); GLOMERULAR FILTRATION RATE 18.4 (>56); GLUCOSE, FASTING 119 MG/DL (60-100); POTASSIUM SERUM 4.7 MMOL/L (3.5-5.1); SODIUM LEVEL 139 MMOL/L (136-145)
[2022-12-08] MEDS: CARVedilol 12.5 MG TAB PO SCH ×2 (08:15→20:09)
[2022-12-08] MEDS: FINASTERIDE 5MG TAB PO SCH (08:15)
[2022-12-08] MEDS: TAMSULOSIN 0.4 MG CAP PO SCH (08:15)
[2022-12-08] MEDS: GABAPENTIN 100 MG CAP PO SCH ×3 (08:15→20:09)
[2022-12-08] MEDS: INSULIN LISPRO (NovoLOG) PER UNIT SC SCH ×4 (08:16→20:11)
[2022-12-08] MEDS: BISACODYL 10MG SUPP PR SCH (08:16)
[2022-12-08 08:44] VITALS: BP 162/82
[2022-12-08] MEDS: SODIUM BICARBONATE 325 MG TAB PO SCH ×2 (10:37→20:09)
[2022-12-08] MEDS: FUROSEMIDE 100MG/10ML VIAL IV SCH ×2 (10:38→18:44)
[2022-12-08 12:14] VITALS: BP 148/84; TEMP 98.3; O2SAT 96
[2022-12-08 19:39] VITALS: BP 166/64; TEMP 97.9; O2SAT 97
[2022-12-08] MEDS: SIMVASTATIN 40 MG TAB PO SCH (20:09)
[2022-12-08 23:26] VITALS: BP 174/80; TEMP 99; O2SAT 98
[2022-12-09 03:42] VITALS: BP 156/72; TEMP 98.5; O2SAT 96
[2022-12-09] MEDS: LEVOTHYROXINE 125MCG TABLET (0.125MG) PO SCH (05:26)
[2022-12-09 06:39] LABS: HEMOGLOBIN 7.8 g/dl (13.5-17.5); MEAN CORPUSCULAR HEMOGLOBIN 27.5 pg (27.0-33.0); MEAN CORPUSCULAR HGB CONC 31.2 g/dl (32.0-36.5); PLATELET COUNT, AUTOMATED 170 10^3/uL (150-450); RED BLOOD COUNT 2.84 10^6/uL (4.30-6.10); WHITE BLOOD COUNT 5.4 10^3/uL (4.0-10.0)
[2022-12-09 07:09] LABS: ALBUMIN 2.7 G/DL (3.2-5.2); ALKALINE PHOSPHATASE 248 U/L (46-116); ALT/SGPT 13 U/L (7.0-40); AST/SGOT < 8 U/L (<34); BILIRUBIN,TOTAL 0.8 MG/DL (0.3-1.2); BLOOD UREA NITROGEN 65 MG/DL (9-23); CALCIUM LEVEL 9.1 MG/DL (8.5-10.1); CARBON DIOXIDE LEVEL 26 MMOL/L (20-31); CHLORIDE LEVEL 107 MMOL/L (98-107); CREATININE FOR GFR 3.57 MG/DL (0.70-1.30); GLOMERULAR FILTRATION RATE 19.1 (>56); GLUCOSE, FASTING 85 MG/DL (60-100); POTASSIUM SERUM 4.4 MMOL/L (3.5-5.1); SODIUM LEVEL 140 MMOL/L (136-145); TOTAL PROTEIN 5.7 G/DL (5.7-8.2)
[2022-12-09] MEDS: INSULIN LISPRO (NovoLOG) PER UNIT SC SCH ×4 (07:30→21:00)
[2022-12-09 08:11] VITALS: BP 168/70; TEMP 97.7; O2SAT 98
[2022-12-09] MEDS: BISACODYL 10MG SUPP PR SCH (08:22)
[2022-12-09] MEDS: SODIUM BICARBONATE 325 MG TAB PO SCH ×2 (09:43→21:20)
[2022-12-09] MEDS: FINASTERIDE 5MG TAB PO SCH (09:43)
[2022-12-09] MEDS: TAMSULOSIN 0.4 MG CAP PO SCH (09:43)
[2022-12-09] MEDS: GABAPENTIN 100 MG CAP PO SCH ×3 (09:43→21:21)
[2022-12-09] MEDS: FUROSEMIDE 100MG/10ML VIAL IV SCH ×2 (09:43→17:00)
[2022-12-09] MEDS: CARVedilol 12.5 MG TAB PO SCH ×2 (09:44→21:21)
[2022-12-09 11:28] VITALS: BP 146/66; TEMP 97.6; O2SAT 99
[2022-12-09 16:27] VITALS: BP 158/71; TEMP 97.7; O2SAT 97
[2022-12-09 19:45] VITALS: BP 156/70; TEMP 96.7; O2SAT 93
[2022-12-09] MEDS: SIMVASTATIN 40 MG TAB PO SCH (21:20)
[2022-12-10 00:13] VITALS: BP 168/73; TEMP 98.2; O2SAT 90
[2022-12-10 04:42] VITALS: BP 170/79; TEMP 98.5; O2SAT 92
[2022-12-10 04:45] VITALS: BP 148/74
[2022-12-10] MEDS: LEVOTHYROXINE 125MCG TABLET (0.125MG) PO SCH (06:31)
[2022-12-10] MEDS: INSULIN LISPRO (NovoLOG) PER UNIT SC SCH ×5 (07:30→20:56)
[2022-12-10 07:31] LABS: HEMATOCRIT 26.6 % (42.0-52.0); HEMOGLOBIN 8.2 g/dl (13.5-17.5); MEAN CORPUSCULAR HGB CONC 30.8 g/dl (32.0-36.5); MEAN CORPUSCULAR VOLUME 87.5 fl (80.0-96.0); PLATELET COUNT, AUTOMATED 171 10^3/uL (150-450); RED BLOOD COUNT 3.04 10^6/uL (4.30-6.10); WHITE BLOOD COUNT 5.5 10^3/uL (4.0-10.0)
[2022-12-10 07:46] VITALS: BP 135/63; TEMP 97.8; O2SAT 92
[2022-12-10 07:54] LABS: ALKALINE PHOSPHATASE 281 U/L (46-116); ALT/SGPT < 9 U/L (7.0-40); AST/SGOT < 8 U/L (<34); BILIRUBIN,TOTAL 0.7 MG/DL (0.3-1.2); BLOOD UREA NITROGEN 68 MG/DL (9-23); CALCIUM LEVEL 8.5 MG/DL (8.5-10.1); CARBON DIOXIDE LEVEL 28 MMOL/L (20-31); CHLORIDE LEVEL 108 MMOL/L (98-107); CREATININE FOR GFR 3.64 MG/DL (0.70-1.30); GLOMERULAR FILTRATION RATE 18.7 (>56); GLUCOSE, FASTING 96 MG/DL (60-100); POTASSIUM SERUM 4.1 MMOL/L (3.5-5.1); SODIUM LEVEL 143 MMOL/L (136-145); TOTAL PROTEIN 6.2 G/DL (5.7-8.2)
[2022-12-10] MEDS: SODIUM BICARBONATE 325 MG TAB PO SCH ×2 (08:16→20:56)
[2022-12-10] MEDS: TAMSULOSIN 0.4 MG CAP PO SCH (08:16)
[2022-12-10] MEDS: GABAPENTIN 100 MG CAP PO SCH ×3 (08:17→20:55)
[2022-12-10] MEDS: **hydrALAZINE** 10 MG TAB PO SCH ×3 (08:17→20:56)
[2022-12-10] MEDS: CARVedilol 12.5 MG TAB PO SCH ×2 (08:17→20:56)
[2022-12-10] MEDS: FINASTERIDE 5MG TAB PO SCH (08:17)
[2022-12-10] MEDS: FUROSEMIDE 100MG/10ML VIAL IV SCH ×2 (08:18→17:31)
[2022-12-10] MEDS: BISACODYL 10MG SUPP PR SCH (08:23)
[2022-12-10 11:18] LABS: PHOSPHORUS LEVEL 6.4 MG/DL (2.5-4.9)
[2022-12-10 11:30] VITALS: BP 144/66; TEMP 97.9; O2SAT 91
[2022-12-10] MEDS: SODIUM CHLORIDE 0.9% NASAL GEL 15GM (AYR) SCH ×3 (11:31→20:57)
[2022-12-10 20:03] VITALS: BP 159/70; TEMP 99.2; O2SAT 95
[2022-12-10] MEDS: SIMVASTATIN 40 MG TAB PO SCH (20:56)
[2022-12-11 04:31] VITALS: BP 170/75; TEMP 98.3; O2SAT 94
[2022-12-11] MEDS: LEVOTHYROXINE 125MCG TABLET (0.125MG) PO SCH (05:22)
[2022-12-11 05:40] LABS: HEMOGLOBIN 8.4 g/dl (13.5-17.5); MEAN CORPUSCULAR HEMOGLOBIN 27.3 pg (27.0-33.0); MEAN CORPUSCULAR HGB CONC 31.1 g/dl (32.0-36.5); MEAN CORPUSCULAR VOLUME 87.7 fl (80.0-96.0); PLATELET COUNT, AUTOMATED 178 10^3/uL (150-450); RED BLOOD COUNT 3.08 10^6/uL (4.30-6.10); WHITE BLOOD COUNT 5.2 10^3/uL (4.0-10.0)
[2022-12-11 06:02] LABS: ALBUMIN 2.9 G/DL (3.2-5.2); ALKALINE PHOSPHATASE 307 U/L (46-116); ALT/SGPT 15 U/L (7.0-40); AST/SGOT < 8 U/L (<34); BILIRUBIN,TOTAL 0.6 MG/DL (0.3-1.2); BLOOD UREA NITROGEN 71 MG/DL (9-23); CALCIUM LEVEL 9.2 MG/DL (8.5-10.1); CARBON DIOXIDE LEVEL 28 MMOL/L (20-31); CHLORIDE LEVEL 103 MMOL/L (98-107); CREATININE FOR GFR 3.64 MG/DL (0.70-1.30); GLOMERULAR FILTRATION RATE 18.7 (>56); GLUCOSE, FASTING 128 MG/DL (60-100); POTASSIUM SERUM 3.8 MMOL/L (3.5-5.1); SODIUM LEVEL 141 MMOL/L (136-145); TOTAL PROTEIN 6.3 G/DL (5.7-8.2)
[2022-12-11 08:40] VITALS: BP 119/55; TEMP 97.3; O2SAT 96
[2022-12-11] MEDS: BISACODYL 10MG SUPP PR SCH (09:00)
[2022-12-11] MEDS: INSULIN LISPRO (NovoLOG) PER UNIT SC SCH ×4 (09:11→20:31)
[2022-12-11] MEDS: FUROSEMIDE 100MG/10ML VIAL IV SCH ×2 (09:32→17:32)
[2022-12-11] MEDS: SODIUM BICARBONATE 325 MG TAB PO SCH ×2 (09:32→20:29)
[2022-12-11] MEDS: **hydrALAZINE** 10 MG TAB PO SCH ×3 (09:33→20:30)
[2022-12-11] MEDS: CARVedilol 12.5 MG TAB PO SCH ×2 (09:33→20:30)
[2022-12-11] MEDS: FINASTERIDE 5MG TAB PO SCH (09:33)
[2022-12-11] MEDS: GABAPENTIN 100 MG CAP PO SCH ×3 (09:33→20:29)
[2022-12-11] MEDS: SODIUM CHLORIDE 0.9% NASAL GEL 15GM (AYR) SCH ×3 (09:34→20:31)
[2022-12-11] MEDS: TAMSULOSIN 0.4 MG CAP PO SCH (09:48)
[2022-12-11 12:15] VITALS: BP 122/68; TEMP 97.3; O2SAT 97
[2022-12-11 16:00] VITALS: BP 132/78; TEMP 97.3; O2SAT 98
[2022-12-11 20:00] VITALS: TEMP 97; O2SAT 99
[2022-12-11] MEDS: SIMVASTATIN 40 MG TAB PO SCH (20:31)
[2022-12-11 23:41] VITALS: BP 152/82; TEMP 97.6; O2SAT 98
[2022-12-12 04:13] VITALS: BP 150/70; TEMP 98.3; O2SAT 97
[2022-12-12 05:01] LABS: HEMOGLOBIN 8.1 g/dl (13.5-17.5); MEAN CORPUSCULAR HEMOGLOBIN 27.1 pg (27.0-33.0); MEAN CORPUSCULAR HGB CONC 31.2 g/dl (32.0-36.5); PLATELET COUNT, AUTOMATED 172 10^3/uL (150-450); RED BLOOD COUNT 2.99 10^6/uL (4.30-6.10); WHITE BLOOD COUNT 6.2 10^3/uL (4.0-10.0)
[2022-12-12 05:29] LABS: ALBUMIN 2.9 G/DL (3.2-5.2); ALKALINE PHOSPHATASE 300 U/L (46-116); ALT/SGPT 15 U/L (7.0-40); AST/SGOT < 8 U/L (<34); BILIRUBIN,TOTAL 0.6 MG/DL (0.3-1.2); BLOOD UREA NITROGEN 73 MG/DL (9-23); CALCIUM LEVEL 8.7 MG/DL (8.5-10.1); CARBON DIOXIDE LEVEL 27 MMOL/L (20-31); CHLORIDE LEVEL 102 MMOL/L (98-107); CREATININE FOR GFR 3.69 MG/DL (0.70-1.30); GLOMERULAR FILTRATION RATE 18.4 (>56); GLUCOSE, FASTING 129 MG/DL (60-100); POTASSIUM SERUM 3.7 MMOL/L (3.5-5.1); SODIUM LEVEL 139 MMOL/L (136-145); TOTAL PROTEIN 6.2 G/DL (5.7-8.2)
[2022-12-12] MEDS: LEVOTHYROXINE 125MCG TABLET (0.125MG) PO SCH (05:58)
[2022-12-12] MEDS ORDERED: ACETAMINOPHEN TAB 650MG DOSE (2X325MG) PO ONE (06:00)
[2022-12-12] MEDS: INSULIN LISPRO (NovoLOG) PER UNIT SC SCH ×4 (07:30→21:00)
[2022-12-12 07:45] VITALS: BP 156/88; TEMP 98.2; O2SAT 95
[2022-12-12] MEDS: FUROSEMIDE 100MG/10ML VIAL IV SCH ×2 (08:20→16:52)
[2022-12-12] MEDS: **hydrALAZINE** 10 MG TAB PO SCH ×3 (08:21→21:14)
[2022-12-12] MEDS: SODIUM BICARBONATE 325 MG TAB PO SCH ×2 (08:21→21:14)
[2022-12-12] MEDS: FINASTERIDE 5MG TAB PO SCH (08:21)
[2022-12-12] MEDS: CARVedilol 12.5 MG TAB PO SCH ×2 (08:21→21:14)
[2022-12-12] MEDS: GABAPENTIN 100 MG CAP PO SCH ×3 (08:21→21:14)
[2022-12-12] MEDS: TAMSULOSIN 0.4 MG CAP PO SCH (08:24)
[2022-12-12] MEDS: SODIUM CHLORIDE 0.9% NASAL GEL 15GM (AYR) SCH ×3 (08:24→21:15)
[2022-12-12] MEDS: BISACODYL 10MG SUPP PR SCH (08:24)
[2022-12-12] MEDS ORDERED: POTASSIUM CHLORIDE 10MEQ SR TABLET PO ONE (11:40)
[2022-12-12] MEDS: POTASSIUM CHLORIDE 10MEQ SR TABLET PO SCH (12:42)
[2022-12-12 13:25] VITALS: BP 139/73; TEMP 97.9; O2SAT 96
[2022-12-12 21:05] VITALS: BP 167/79; TEMP 98.6; O2SAT 96
[2022-12-12] MEDS: SIMVASTATIN 40 MG TAB PO SCH (21:14)
[2022-12-13] MEDS: LEVOTHYROXINE 125MCG TABLET (0.125MG) PO SCH (05:30)
[2022-12-13 06:00] VITALS: BP 161/77; TEMP 97.9; O2SAT 96
[2022-12-13 06:28] LABS: HEMATOCRIT 25.9 % (42.0-52.0); MEAN CORPUSCULAR HEMOGLOBIN 26.9 pg (27.0-33.0); MEAN CORPUSCULAR HGB CONC 30.9 g/dl (32.0-36.5); MEAN CORPUSCULAR VOLUME 87.2 fl (80.0-96.0); PLATELET COUNT, AUTOMATED 167 10^3/uL (150-450); RED BLOOD COUNT 2.97 10^6/uL (4.30-6.10); WHITE BLOOD COUNT 4.9 10^3/uL (4.0-10.0)
[2022-12-13 07:01] LABS: ALBUMIN 2.8 G/DL (3.2-5.2); ALKALINE PHOSPHATASE 284 U/L (46-116); ALT/SGPT 14 U/L (7.0-40); AST/SGOT < 8 U/L (<34); BILIRUBIN,TOTAL 0.5 MG/DL (0.3-1.2); BLOOD UREA NITROGEN 77 MG/DL (9-23); CALCIUM LEVEL 8.3 MG/DL (8.5-10.1); CARBON DIOXIDE LEVEL 27 MMOL/L (20-31); CHLORIDE LEVEL 102 MMOL/L (98-107); CREATININE FOR GFR 3.85 MG/DL (0.70-1.30); GLOMERULAR FILTRATION RATE 17.5 (>56); GLUCOSE, FASTING 136 MG/DL (60-100); POTASSIUM SERUM 3.7 MMOL/L (3.5-5.1); SODIUM LEVEL 139 MMOL/L (136-145); TOTAL PROTEIN 5.9 G/DL (5.7-8.2)
[2022-12-13] MEDS: INSULIN LISPRO (NovoLOG) PER UNIT SC SCH ×4 (07:30→20:17)
[2022-12-13] MEDS: BISACODYL 10MG SUPP PR SCH (09:00)
[2022-12-13] MEDS ORDERED: DARBEPOETIN 100MCG/0.5ML *NON-DIALYSIS* SYRINGE SC SCH (09:00)
[2022-12-13] MEDS: SODIUM BICARBONATE 325 MG TAB PO SCH ×2 (09:49→20:20)
[2022-12-13] MEDS: TAMSULOSIN 0.4 MG CAP PO SCH (09:49)
[2022-12-13] MEDS: CARVedilol 12.5 MG TAB PO SCH ×2 (09:49→20:21)
[2022-12-13] MEDS: POTASSIUM CHLORIDE 10MEQ SR TABLET PO SCH (09:49)
[2022-12-13] MEDS: GABAPENTIN 100 MG CAP PO SCH ×3 (09:49→20:20)
[2022-12-13] MEDS: **hydrALAZINE** 10 MG TAB PO SCH ×3 (09:50→20:20)
[2022-12-13] MEDS: FINASTERIDE 5MG TAB PO SCH (09:50)
[2022-12-13] MEDS: TORSEMIDE 20 MG TAB PO SCH ×2 (09:50→17:14)
[2022-12-13] MEDS: SODIUM CHLORIDE 0.9% NASAL GEL 15GM (AYR) SCH ×3 (09:51→20:23)
[2022-12-13 14:00] VITALS: BP 161/75; TEMP 97.9; O2SAT 96
[2022-12-13 19:58] VITALS: BP 160/74; TEMP 98.1; O2SAT 98
[2022-12-13] MEDS: SIMVASTATIN 40 MG TAB PO SCH (20:20)
[2022-12-14] MEDS: LEVOTHYROXINE 125MCG TABLET (0.125MG) PO SCH (05:23)
[2022-12-14 05:44] VITALS: BP 165/77; TEMP 97.9; O2SAT 98
[2022-12-14 06:21] LABS: HEMATOCRIT 27.8 % (42.0-52.0); HEMOGLOBIN 8.6 g/dl (13.5-17.5); MEAN CORPUSCULAR HGB CONC 30.9 g/dl (32.0-36.5); MEAN CORPUSCULAR VOLUME 87.1 fl (80.0-96.0); PLATELET COUNT, AUTOMATED 198 10^3/uL (150-450); RED BLOOD COUNT 3.19 10^6/uL (4.30-6.10)
[2022-12-14 06:53] LABS: ALBUMIN 3.1 G/DL (3.2-5.2); BILIRUBIN,TOTAL 0.5 MG/DL (0.3-1.2); CALCIUM LEVEL 9.2 MG/DL (8.5-10.1); CREATININE FOR GFR 3.77 MG/DL (0.70-1.30); GLOMERULAR FILTRATION RATE 17.9 (>56); POTASSIUM SERUM 3.8 MMOL/L (3.5-5.1); TOTAL PROTEIN 6.5 G/DL (5.7-8.2)
[2022-12-14] MEDS: INSULIN LISPRO (NovoLOG) PER UNIT SC SCH ×4 (08:16→20:25)
[2022-12-14] MEDS: TORSEMIDE 20 MG TAB PO SCH ×2 (08:17→16:33)
[2022-12-14] MEDS: GABAPENTIN 100 MG CAP PO SCH ×3 (08:17→20:42)
[2022-12-14] MEDS: CARVedilol 12.5 MG TAB PO SCH ×2 (08:18→20:43)
[2022-12-14] MEDS: TAMSULOSIN 0.4 MG CAP PO SCH (08:18)
[2022-12-14] MEDS: POTASSIUM CHLORIDE 10MEQ SR TABLET PO SCH (08:18)
[2022-12-14] MEDS: FINASTERIDE 5MG TAB PO SCH (08:18)
[2022-12-14] MEDS: **hydrALAZINE** 10 MG TAB PO SCH ×3 (08:19→20:42)
[2022-12-14] MEDS: SODIUM BICARBONATE 325 MG TAB PO SCH ×2 (08:19→20:40)
[2022-12-14] MEDS: BISACODYL 10MG SUPP PR SCH (08:19)
[2022-12-14] MEDS: SODIUM CHLORIDE 0.9% NASAL GEL 15GM (AYR) SCH ×3 (08:21→20:43)
[2022-12-14 14:00] VITALS: BP 159/76; TEMP 98.6; O2SAT 94
[2022-12-14] MEDS: SIMVASTATIN 40 MG TAB PO SCH (20:40)
[2022-12-14] MEDS: HEPARIN SOD (PORCINE) 5000UNITS/ML 1ML VIAL/SYRINGE SQ SCH (20:44)
[2022-12-15] MEDS: HEPARIN SOD (PORCINE) 5000UNITS/ML 1ML VIAL/SYRINGE SQ SCH (05:37)
[2022-12-15] MEDS: LEVOTHYROXINE 125MCG TABLET (0.125MG) PO SCH (05:37)
[2022-12-15 06:00] VITALS: BP 145/72; TEMP 98.8; O2SAT 95
[2022-12-15 06:07] LABS: HEMATOCRIT 26.9 % (42.0-52.0); HEMOGLOBIN 8.3 g/dl (13.5-17.5); MEAN CORPUSCULAR HEMOGLOBIN 27.2 pg (27.0-33.0); MEAN CORPUSCULAR HGB CONC 30.9 g/dl (32.0-36.5); MEAN CORPUSCULAR VOLUME 88.2 fl (80.0-96.0); PLATELET COUNT, AUTOMATED 174 10^3/uL (150-450); RED BLOOD COUNT 3.05 10^6/uL (4.30-6.10); WHITE BLOOD COUNT 4.7 10^3/uL (4.0-10.0)
[2022-12-15 06:38] LABS: CALCIUM LEVEL 9.3 MG/DL (8.5-10.1); CREATININE FOR GFR 3.95 MG/DL (0.70-1.30)
[2022-12-15] MEDS: INSULIN LISPRO (NovoLOG) PER UNIT SC SCH ×2 (07:20→12:32)
[2022-12-15] MEDS: POTASSIUM CHLORIDE 10MEQ SR TABLET PO SCH (08:14)
[2022-12-15] MEDS: GABAPENTIN 100 MG CAP PO SCH (08:14)
[2022-12-15] MEDS: TAMSULOSIN 0.4 MG CAP PO SCH (08:14)
[2022-12-15 08:15] VITALS: BP 147/71
[2022-12-15] MEDS: SODIUM BICARBONATE 325 MG TAB PO SCH (08:15)
[2022-12-15] MEDS: FINASTERIDE 5MG TAB PO SCH (08:15)
[2022-12-15] MEDS: CARVedilol 12.5 MG TAB PO SCH (08:15)
[2022-12-15] MEDS: TORSEMIDE 20 MG TAB PO SCH (08:15)
[2022-12-15] MEDS: **hydrALAZINE** 10 MG TAB PO SCH (08:16)
[2022-12-15] MEDS: BISACODYL 10MG SUPP PR SCH (08:16)
[2022-12-15] MEDS: SODIUM CHLORIDE 0.9% NASAL GEL 15GM (AYR) SCH (08:16)
[2022-12-15] MEDS ORDERED: AMLO1TAB25 PO (09:43)
[2022-12-15] MEDS ORDERED: TORS20TA2 PO (09:43)
[2022-12-15] MEDS ORDERED: GABA-1171 PO (09:43)
[2022-12-15] MEDS ORDERED: SODI325T9 PO (09:43)
[2022-12-15] MEDS ORDERED: HYDR10TAB PO (09:43)
[2022-12-17 09:08] LABS: ANTINUCLEAR ANTIBODIES DIRECT Negative (Negative)
== END 2022-12-15 13:14 | DRG 468 ==
LOC: M ED 14:19 → M ED INP 18:11 → M PCU 20:09 → M MSPAV 12-12 13:18
PROVIDERS: ADMIT Internal Medicine; ATTEND Internal Medicine
PROC: 30233N1 Transfusion of Nonautologous Red Blood Cells into Peripheral Vein, Percutaneous Approach (ICD-10-PCS; principal; 2022-12-06)
DX: E11.21 Type 2 diabetes mellitus with diabetic nephropathy (principal); J96.21 Acute and chronic respiratory failure with hypoxia; I50.33 Acute on chronic diastolic (congestive) heart failure; N17.9 Acute kidney failure, unspecified; N18.4 Chronic kidney disease, stage 4 (severe); E87.20 Acidosis, unspecified; E11.40 Type 2 diabetes mellitus with diabetic neuropathy, unspecified; E87.4 Mixed disorder of acid-base balance; I13.0 Hypertensive heart and chronic kidney disease with heart failure and stage 1 through stage 4 chronic kidney disease, or unspecified chronic kidney disease; E87.5 Hyperkalemia; Z89.612 Acquired absence of left leg above knee; D63.1 Anemia in chronic kidney disease; E03.9 Hypothyroidism, unspecified; R04.0 Epistaxis; N40.0 Benign prostatic hyperplasia without lower urinary tract symptoms; Z91.030 Bee allergy status; Z79.899 Other long term (current) drug therapy; Z79.82 Long term (current) use of aspirin; Z89.421 Acquired absence of other right toe(s); Z79.4 Long term (current) use of insulin; Z87.891 Personal history of nicotine dependence; E11.22 Type 2 diabetes mellitus with diabetic chronic kidney disease; N04.9 Nephrotic syndrome with unspecified morphologic changes

== ENCOUNTER → 2022-12-16 | Outpatient (REF) | payer OTHER ==
[~2022-12-16] MED LIST changes: +AMLO1TAB24 PO; +BISA10SU27 PR; +CARV12.5 PO; +FLEEENE12 PR; +HYDR10TAB PO; +LISI10TA22 PO; +MILKSUS3 PO; +SODI325T9 PO; +TORS20TA2 PO
== END ==
LOC: SKLAB5 10:15
PROVIDERS: ATTEND Internal Medicine
DX: N18.9 Chronic kidney disease, unspecified (principal)

== ENCOUNTER → 2022-12-17 | Outpatient (REF) | payer OTHER | LOC: SKLAB5 11:28 | PROVIDERS: ATTEND Internal Medicine | DX: N18.9 Chronic kidney disease, unspecified (principal) ==

== ENCOUNTER → 2023-01-11 | Outpatient (REF) | payer OTHER ==
[2023-01-11 07:05] LABS: HEMATOCRIT 25.2 % (42.0-52.0); HEMOGLOBIN 7.8 g/dl (13.5-17.5); MEAN CORPUSCULAR HEMOGLOBIN 27.2 pg (27.0-33.0); MEAN CORPUSCULAR VOLUME 87.8 fl (80.0-96.0); PLATELET COUNT, AUTOMATED 176 10^3/uL (150-450); RED BLOOD COUNT 2.87 10^6/uL (4.30-6.10); WHITE BLOOD COUNT 5.8 10^3/uL (4.0-10.0)
[2023-01-11 07:36] LABS: C REACTIVE PROTEIN QUANTITATIV 2.1 MG/DL (<1.0); PERCENT SATURATION 6.1 % (19.7-50.0)
[2023-01-11 07:37] LABS: PTH INTACT 189.2 PG/ML (18.5-88.0)
[2023-01-11 07:38] LABS: FERRITIN 204.8 NG/ML (10.5-307.3)
== END ==
LOC: SKLAB5 09:31
PROVIDERS: ATTEND Internal Medicine
DX: N18.9 Chronic kidney disease, unspecified (principal); D63.1 Anemia in chronic kidney disease

== ENCOUNTER 2023-01-14 08:50 | Outpatient (CLI) | payer OTHER ==
[~2023-01-14] VITALS: Ht 182.9 cm; Wt 123.6 kg
[~2023-01-14 08:50] MED LIST changes: +ALBUTEROL SULFATE 2.5MG/0.5ML INH NEB SOLN INH PRN; +EPINEPHrine INJ 1 MG/ML 1ML AMP IM PRN; +diphenhydrAMINE 50MG/ML VIAL IV PRN; +methylPREDNISolone 125MG 2ML VIAL IV PRN
[2023-01-14 09:00] VITALS: BP 156/70; O2SAT 99
[2023-01-14] MEDS ORDERED: NS 1,000 ML IV SCH (09:10)
[2023-01-14] MEDS ORDERED: IRON SUCROSE 400 MG in NS 250 ML OVER 2.5 HRS IV ONE (09:30)
[2023-01-14 10:00] VITALS: BP 148/68; O2SAT 97
[2023-01-14 11:15] VITALS: BP 132/60; O2SAT 99
[2023-01-14 12:25] VITALS: BP 142/63; O2SAT 99
== END 2023-01-14 12:25 | disposition home or self-care (01) ==
LOC: M INFU 08:50
PROVIDERS: ATTEND Internal Medicine Nephrology
DX: D50.9 Iron deficiency anemia, unspecified (principal); Z91.030 Bee allergy status; Z91.048 Other nonmedicinal substance allergy status
CPT/HCPCS: 96365; 96366; J1756

== ENCOUNTER → 2023-01-18 | Outpatient (REF) | payer OTHER ==
[~2023-01-18] MED LIST changes: +ACET-897 PO; -ALBUTEROL SULFATE 2.5MG/0.5ML INH NEB SOLN INH PRN; +ASPI-161 PO; +CALC667T2 PO; +CLOT1CRE56 TOP; +DIFL200T PO; -EPINEPHrine INJ 1 MG/ML 1ML AMP IM PRN; +FERR32TA PO; +METH85CR12 TOP; +MIRA3350 PO; +OXYC-517 PO; +SODI650T PO; +TORS100T PO; -diphenhydrAMINE 50MG/ML VIAL IV PRN; -methylPREDNISolone 125MG 2ML VIAL IV PRN
[2023-01-18 16:03] LABS: APPEARANCE, URINE CLEAR (CLEAR); BACTERIA, URINE AUTO NEGATIVE (NEGATIVE); BILIRUBIN, URINE AUTO NEGATIVE (NEGATIVE); BLOOD, URINE BLOOD 1+ (NEGATIVE); COLOR, URINE YELLOW (YELLOW); GLUCOSE, URINE (UA) AUTO 1+ mg/dL (NEGATIVE); KETONE, URINE AUTO NEGATIVE (NEGATIVE); LEUKOCYTE ESTERASE, URINE AUTO NEGATIVE (NEGATIVE); NITRITE, URINE AUTO NEGATIVE (NEGATIVE); PROTEIN, URINE AUTO 2+ mg/dL (NEGATIVE); RBC, URINE AUTO 0 /HPF (0-3); SPECIFIC GRAVITY URINE AUTO 1.011 (1.002-1.035); SQUAMOUS EPITHELIAL CELL UR AU 0 /HPF (0-6); UROBILINOGEN, URINE AUTO 0.2 mg/dL (0.0-2.0); WBC, URINE AUTO 0 /HPF (0-3)
== END ==
LOC: SKLAB5 11:14
PROVIDERS: ATTEND Internal Medicine
DX: E11.22 Type 2 diabetes mellitus with diabetic chronic kidney disease (principal); N18.9 Chronic kidney disease, unspecified; D63.1 Anemia in chronic kidney disease

== ENCOUNTER → 2023-01-18 | Outpatient (REF) | payer OTHER ==
[2023-01-17 06:16] LABS: HEMATOCRIT 24.8 % (42.0-52.0); HEMOGLOBIN 7.8 g/dl (13.5-17.5); MEAN CORPUSCULAR HEMOGLOBIN 27.8 pg (27.0-33.0); MEAN CORPUSCULAR HGB CONC 31.5 g/dl (32.0-36.5); MEAN CORPUSCULAR VOLUME 88.3 fl (80.0-96.0); PLATELET COUNT, AUTOMATED 201 10^3/uL (150-450); RED BLOOD COUNT 2.81 10^6/uL (4.30-6.10); WHITE BLOOD COUNT 7.3 10^3/uL (4.0-10.0)
[2023-01-17 06:41] LABS: ALBUMIN 3.1 G/DL (3.2-5.2); CALCIUM LEVEL 8.7 MG/DL (8.5-10.1); CREATININE FOR GFR 5.21 MG/DL (0.70-1.30); GLOMERULAR FILTRATION RATE 12.3 (>56); PHOSPHORUS LEVEL 8.3 MG/DL (2.5-4.9); POTASSIUM SERUM 4.5 MMOL/L (3.5-5.1)
[2023-01-17 06:42] LABS: PTH INTACT 205.7 PG/ML (18.5-88.0)
[~2023-01-18] MED LIST changes: -ACET-897 PO; -ASPI-161 PO; -CALC667T2 PO; -CLOT1CRE56 TOP; -DIFL200T PO; -FERR32TA PO; -METH85CR12 TOP; -MIRA3350 PO; -OXYC-517 PO; -SODI650T PO; -TORS100T PO
== END ==
LOC: SKLAB5 10:32
PROVIDERS: ATTEND Internal Medicine
DX: N18.9 Chronic kidney disease, unspecified (principal); D63.1 Anemia in chronic kidney disease

== ENCOUNTER → 2023-01-24 | Outpatient (REF) | payer OTHER ==
[2023-01-24 06:37] LABS: BASO % 0.7 % (0.0-1.0); EOS # 0.3 10^3/uL (0.0-0.5); EOS % 4.5 % (0.0-3.0); HEMATOCRIT 23.7 % (42.0-52.0); HEMOGLOBIN 7.4 g/dl (13.5-17.5); LYMPH # 0.4 10^3/uL (1.5-5.0); LYMPH % 7.4 % (24.0-44.0); MEAN CORPUSCULAR HEMOGLOBIN 27.4 pg (27.0-33.0); MEAN CORPUSCULAR HGB CONC 31.2 g/dl (32.0-36.5); MEAN CORPUSCULAR VOLUME 87.8 fl (80.0-96.0); MONO # 0.4 10^3/uL (0.0-0.8); MONO % 6.9 % (2.0-8.0); NEUTROPHILS # 4.6 10^3/uL (1.5-8.5); NEUTROPHILS % 79.6 % (36.0-66.0); PLATELET COUNT, AUTOMATED 228 10^3/uL (150-450); WHITE BLOOD COUNT 5.8 10^3/uL (4.0-10.0)
[2023-01-24 06:57] LABS: ALBUMIN 2.9 G/DL (3.2-5.2); BLOOD UREA NITROGEN 127 MG/DL (9-23); CALCIUM LEVEL 7.8 MG/DL (8.5-10.1); CARBON DIOXIDE LEVEL 19 MMOL/L (20-31); CHLORIDE LEVEL 106 MMOL/L (98-107); GLOMERULAR FILTRATION RATE 11.8 (>56); GLUCOSE, FASTING 181 MG/DL (60-100); PHOSPHORUS LEVEL 8.9 MG/DL (2.5-4.9); POTASSIUM SERUM 4.2 MMOL/L (3.5-5.1); SODIUM LEVEL 139 MMOL/L (136-145)
[2023-01-24 07:32] LABS: HEPATITIS B CORE ANTIBODY IGM NEGATIVE (NEGATIVE); HEPATITIS C VIRUS ABY INDEX 0.14 INDEX (<0.8)
== END ==
LOC: SKLAB5 07:00
PROVIDERS: ATTEND Internal Medicine
DX: N18.9 Chronic kidney disease, unspecified (principal)

== ENCOUNTER → 2023-02-22 | Outpatient (REF) | payer OTHER ==
[2023-02-22 10:08] LABS: BASO # 0.1 10^3/uL (0.0-0.2); BASO % 0.8 % (0.0-1.0); EOS # 0.7 10^3/uL (0.0-0.5); EOS % 9.5 % (0.0-3.0); HEMATOCRIT 22.1 % (42.0-52.0); LYMPH # 0.8 10^3/uL (1.5-5.0); LYMPH % 11.6 % (24.0-44.0); MEAN CORPUSCULAR HEMOGLOBIN 27.1 pg (27.0-33.0); MEAN CORPUSCULAR HGB CONC 30.3 g/dl (32.0-36.5); MEAN CORPUSCULAR VOLUME 89.5 fl (80.0-96.0); MONO # 0.6 10^3/uL (0.0-0.8); NEUTROPHILS % 69.4 % (36.0-66.0); PLATELET COUNT, AUTOMATED 215 10^3/uL (150-450); RED BLOOD COUNT 2.47 10^6/uL (4.30-6.10); WHITE BLOOD COUNT 7.2 10^3/uL (4.0-10.0)
[2023-02-22 10:14] LABS: HEMOGLOBIN 6.7 g/dl (13.5-17.5)
[2023-02-22 10:39] LABS: ALBUMIN 2.8 G/DL (3.2-5.2); CALCIUM LEVEL 8.3 MG/DL (8.5-10.1); CREATININE FOR GFR 4.26 MG/DL (0.70-1.30); GLOMERULAR FILTRATION RATE 15.6 (>56); PHOSPHORUS LEVEL 7.1 MG/DL (2.5-4.9); POTASSIUM SERUM 4.6 MMOL/L (3.5-5.1)
[2023-02-22 11:35] LABS: PTH INTACT 245.6 PG/ML (18.5-88.0)
== END ==
LOC: SKLAB5 09:25
PROVIDERS: ATTEND Internal Medicine
DX: E11.22 Type 2 diabetes mellitus with diabetic chronic kidney disease (principal); N18.9 Chronic kidney disease, unspecified; D63.1 Anemia in chronic kidney disease

== ENCOUNTER 2023-03-18 17:11 | Emergency (ER) | payer OTHER, MEDICAID ==
[~2023-03-18] VITALS: Ht 182.9 cm; Wt 119.1 kg
[~2023-03-18 17:11] MED LIST changes: +ACET-897 PO; +ASPI-161 PO; +CALC667T2 PO; +FERR32TA PO; +METH85CR12 TOP; +MIRA3350 PO; +OXYC-517 PO; +SODI650T PO; +TORS100T PO
[2023-03-18 17:22] VITALS: TEMP 97.3; O2SAT 95
[2023-03-18 18:56] LABS: BASO # 0.1 10^3/uL (0.0-0.2); BASO % 0.7 % (0.0-1.0); EOS # 0.4 10^3/uL (0.0-0.5); EOS % 4.1 % (0.0-3.0); HEMATOCRIT 36.7 % (42.0-52.0); HEMOGLOBIN 11.6 g/dl (13.5-17.5); LYMPH # 1.1 10^3/uL (1.5-5.0); LYMPH % 10.3 % (24.0-44.0); MEAN CORPUSCULAR HEMOGLOBIN 29.1 pg (27.0-33.0); MEAN CORPUSCULAR HGB CONC 31.6 g/dl (32.0-36.5); MEAN CORPUSCULAR VOLUME 92.2 fl (80.0-96.0); MONO % 9.1 % (2.0-8.0); NEUTROPHILS # 7.9 10^3/uL (1.5-8.5); NEUTROPHILS % 75.3 % (36.0-66.0); PLATELET COUNT, AUTOMATED 212 10^3/uL (150-450); RED BLOOD COUNT 3.98 10^6/uL (4.30-6.10); WHITE BLOOD COUNT 10.5 10^3/uL (4.0-10.0)
[2023-03-18 19:08] LABS: INR 1.22; PARTIAL THROMBOPLASTIN TIME 35.4 SECONDS (24.8-34.2); PROTHROMBIN TIME 15.1 SECONDS (12.5-14.5)
[2023-03-18 19:19] LABS: BLOOD UREA NITROGEN 35 MG/DL (9-23); CALCIUM LEVEL 9.1 MG/DL (8.5-10.1); CARBON DIOXIDE LEVEL 31 MMOL/L (20-31); CHLORIDE LEVEL 101 MMOL/L (98-107); CREATININE FOR GFR 3.22 MG/DL (0.70-1.30); GLOMERULAR FILTRATION RATE 21.5 (>56); GLUCOSE, FASTING 202 MG/DL (60-100); SODIUM LEVEL 139 MMOL/L (136-145)
[2023-03-18 19:47] LABS: HIV 1&2 SCREEN NEGATIVE (NEGATIVE)
[2023-03-18 20:41] VITALS: BP 188/94
[2023-03-18 20:51] LABS: GC DNA AMPLIFICATION NEGATIVE (NEGATIVE)
[2023-03-18] MEDS ORDERED: CLOTRIMAZOLE 1% TOPICAL CREAM 30GM TOP ONE (21:00)
[2023-03-18] MEDS ORDERED: AUGMENTIN 875 MG TAB PO ONE (21:05)
[2023-03-18] MEDS ORDERED: CLOT1CRE56 TOP (21:34)
[2023-03-18] MEDS ORDERED: AMOX875T2 PO (21:35)
== END 2023-03-18 22:58 | disposition home or self-care (01) ==
LOC: EDBD 17:11 → M ED 17:11
DX: N48.1 Balanitis (principal); R00.1 Bradycardia, unspecified; I25.2 Old myocardial infarction; E11.9 Type 2 diabetes mellitus without complications; I10 Essential (primary) hypertension; I50.22 Chronic systolic (congestive) heart failure; N18.9 Chronic kidney disease, unspecified; Z91.030 Bee allergy status; Z91.048 Other nonmedicinal substance allergy status; Z79.82 Long term (current) use of aspirin; Z79.2 Long term (current) use of antibiotics; Z79.811 Long term (current) use of aromatase inhibitors; Z79.891 Long term (current) use of opiate analgesic; Z79.899 Other long term (current) drug therapy

== ENCOUNTER 2023-03-23 11:15 | Emergency (ER) | payer MEDICAID, OTHER ==
[~2023-03-23] VITALS: Ht 182.9 cm; Wt 121.0 kg
[~2023-03-23 11:15] MED LIST changes: +CLOT1CRE56 TOP
[2023-03-23 11:29] VITALS: TEMP 98.6
[2023-03-23 12:57] LABS: BASO # 0.1 10^3/uL (0.0-0.2); BASO % 0.7 % (0.0-1.0); EOS # 0.4 10^3/uL (0.0-0.5); EOS % 4.5 % (0.0-3.0); HEMATOCRIT 36.1 % (42.0-52.0); HEMOGLOBIN 11.4 g/dl (13.5-17.5); LYMPH # 1.3 10^3/uL (1.5-5.0); LYMPH % 14.9 % (24.0-44.0); MEAN CORPUSCULAR HEMOGLOBIN 28.8 pg (27.0-33.0); MEAN CORPUSCULAR HGB CONC 31.6 g/dl (32.0-36.5); MEAN CORPUSCULAR VOLUME 91.2 fl (80.0-96.0); MONO # 0.9 10^3/uL (0.0-0.8); NEUTROPHILS # 6.2 10^3/uL (1.5-8.5); NEUTROPHILS % 69.3 % (36.0-66.0); PLATELET COUNT, AUTOMATED 277 10^3/uL (150-450); RED BLOOD COUNT 3.96 10^6/uL (4.30-6.10); WHITE BLOOD COUNT 8.9 10^3/uL (4.0-10.0)
[2023-03-23] MEDS ORDERED: ACETAMINOPHEN 500 MG TAB PO ONE (13:10)
[2023-03-23 13:24] VITALS: BP 187/81; O2SAT 100
[2023-03-23 13:29] LABS: BILIRUBIN,DIRECT 0.3 MG/DL (<0.4); BILIRUBIN,TOTAL 0.6 MG/DL (0.3-1.2); CALCIUM LEVEL 9.1 MG/DL (8.5-10.1); CREATININE FOR GFR 3.32 MG/DL (0.70-1.30); GLOMERULAR FILTRATION RATE 20.8 (>56)
[2023-03-23] MEDS ORDERED: DIFL200T PO (13:37)
== END 2023-03-23 14:32 | disposition home or self-care (01) ==
LOC: M ED 11:15
DX: N48.1 Balanitis (principal); E11.9 Type 2 diabetes mellitus without complications; I10 Essential (primary) hypertension; E78.5 Hyperlipidemia, unspecified; E03.9 Hypothyroidism, unspecified; N18.9 Chronic kidney disease, unspecified; J90 Pleural effusion, not elsewhere classified; Z86.79 Personal history of other diseases of the circulatory system; Z87.891 Personal history of nicotine dependence; Z91.030 Bee allergy status; Z91.048 Other nonmedicinal substance allergy status; Z79.82 Long term (current) use of aspirin; Z79.2 Long term (current) use of antibiotics; Z79.811 Long term (current) use of aromatase inhibitors; Z79.891 Long term (current) use of opiate analgesic; Z79.899 Other long term (current) drug therapy

== ENCOUNTER → 2023-03-29 | Outpatient (REF) | payer OTHER ==
[~2023-03-29] MED LIST changes: +DIFL200T PO; +HYDR-3713 PO
[2023-03-29 11:28] LABS: HEMATOCRIT 36.3 % (42.0-52.0); HEMOGLOBIN 11.3 g/dl (13.5-17.5); MEAN CORPUSCULAR HEMOGLOBIN 28.4 pg (27.0-33.0); MEAN CORPUSCULAR HGB CONC 31.1 g/dl (32.0-36.5); MEAN CORPUSCULAR VOLUME 91.2 fl (80.0-96.0); PLATELET COUNT, AUTOMATED 346 10^3/uL (150-450); RED BLOOD COUNT 3.98 10^6/uL (4.30-6.10); WHITE BLOOD COUNT 10.2 10^3/uL (4.0-10.0)
[2023-03-29 11:58] LABS: CALCIUM LEVEL 8.9 MG/DL (8.5-10.1); CREATININE FOR GFR 2.38 MG/DL (0.70-1.30); GLOMERULAR FILTRATION RATE 30.5 (>56); POTASSIUM SERUM 3.5 MMOL/L (3.5-5.1)
== END ==
LOC: M LAB 18:19
PROVIDERS: ATTEND Internal Medicine
DX: Z01.812 Encounter for preprocedural laboratory examination (principal)

== ENCOUNTER → 2023-03-29 | Outpatient (CLI) | payer OTHER ==
[~2023-03-29] MED LIST changes: -HYDR-3713 PO
[2023-03-29 16:17] LABS: HEMOGLOBIN 11.2 g/dl (13.5-17.5); MEAN CORPUSCULAR HEMOGLOBIN 29.2 pg (27.0-33.0); MEAN CORPUSCULAR VOLUME 91.1 fl (80.0-96.0); PLATELET COUNT, AUTOMATED 332 10^3/uL (150-450); RED BLOOD COUNT 3.84 10^6/uL (4.30-6.10)
== END ==
LOC: M RAD 15:10
PROVIDERS: ATTEND Internal Medicine
DX: Z01.818 Encounter for other preprocedural examination (principal)

== ENCOUNTER → 2023-03-29 | Outpatient (REF) | payer OTHER ==
[2023-03-29 10:49] LABS: APPEARANCE, URINE CLEAR (CLEAR); BACTERIA, URINE AUTO NEGATIVE (NEGATIVE); BILIRUBIN, URINE AUTO NEGATIVE (NEGATIVE); BLOOD, URINE BLOOD NEGATIVE (NEGATIVE); COLOR, URINE YELLOW (YELLOW); GLUCOSE, URINE (UA) AUTO 1+ mg/dL (NEGATIVE); KETONE, URINE AUTO NEGATIVE (NEGATIVE); LEUKOCYTE ESTERASE, URINE AUTO NEGATIVE (NEGATIVE); MUCUS, URINE SMALL (NEGATIVE); NITRITE, URINE AUTO NEGATIVE (NEGATIVE); PROTEIN, URINE AUTO 3+ mg/dL (NEGATIVE); RBC, URINE AUTO 3 /HPF (0-3); SPECIFIC GRAVITY URINE AUTO 1.012 (1.002-1.035); SQUAMOUS EPITHELIAL CELL UR AU 0 /HPF (0-6); UROBILINOGEN, URINE AUTO 0.2 mg/dL (0.0-2.0); WBC, URINE AUTO 0 /HPF (0-3)
== END ==
LOC: SKLAB5 01:30
PROVIDERS: ATTEND Internal Medicine
DX: R39.89 Other symptoms and signs involving the genitourinary system (principal)

== ENCOUNTER 2023-04-04 08:00 | Day surgery (SDC) | payer OTHER ==
[~2023-04-04] VITALS: Ht 182.9 cm; Wt 117.9 kg
[~2023-04-04 08:00] MED LIST changes: +ceFAZolin SOD 2 GM in IV 1 EA IV ONE
[2023-04-04] MEDS ORDERED: LIDOCAINE 2% 100MG/5ML SDV (FOR ANES.) As Ordered ONE (09:10)
[2023-04-04] MEDS ORDERED: propofoL 200 MG/20 ML VIAL As Ordered ONE (09:10)
[2023-04-04] MEDS ORDERED: ONDANSETRON 4MG 2ML VIAL As Ordered ONE (09:10)
[2023-04-04] MEDS ORDERED: MIDAZOLAM INJ 2MG/2ML VIAL As Ordered ONE (09:13)
[2023-04-04] MEDS ORDERED: fentaNYL 100 MCG/2 ML INJECTION As Ordered ONE ×3 (09:13→11:30)
[2023-04-04] MEDS ORDERED: LIDOCAINE 1% SDV 30ML VIAL As Ordered ONE (10:16)
[2023-04-04] MEDS ORDERED: MUPIROCIN 2% OINT 22 GM TUBE As Ordered ONE (10:17)
[2023-04-04] MEDS ORDERED: INSULIN LISPRO (NovoLOG) PER UNIT SC PRN ×2 (10:30→11:30)
[2023-04-04] MEDS ORDERED: LR 1,000 ML IV SCH (10:30)
[2023-04-04] MEDS ORDERED: ACETAMINOPHEN 1000MG 100ML IV BAG As Ordered ONE (11:00)
[2023-04-04] MEDS ORDERED: LABETALOL 100MG/20ML VIAL As Ordered ONE (11:06)
[2023-04-04] MEDS ORDERED: ONDANSETRON 4MG 2ML VIAL IV PRN (11:30)
[2023-04-04] MEDS ORDERED: HYDR-3713 PO (11:33)
[2023-04-04] MEDS: fentaNYL 100 MCG/2 ML INJECTION IV PRN ×4 (11:36→12:00)
[2023-04-04] MEDS ORDERED: HYDROmorphone HCL 2MG/ML 1ML VIAL As Ordered ONE (11:53)
[2023-04-04] MEDS: oxyCODONE 5MG TAB PO PRN ×2 (11:59→12:33)
[2023-04-04] MEDS: HYDROMORPHONE HCL 0.5 MG/ 0.5 ML SYRINGE IV PRN ×4 (12:08→12:44)
[2023-04-04] MEDS ORDERED: hydrALAZINE 20MG/ML 1ML VIAL IV PRN (12:15)
[2023-04-04 12:20] VITALS: BP 225/98
[2023-04-04] MEDS ORDERED: ACETAMINOPHEN 325 MG TAB PO ONE (12:40)
[2023-04-04 13:15] VITALS: BP 195/88; TEMP 97.5; O2SAT 95
== END 2023-04-04 13:50 | disposition home or self-care (01) ==
LOC: M SDC 08:00
PROVIDERS: ATTEND Urology
DX: N49.3 Fournier gangrene (principal); Z79.899 Other long term (current) drug therapy; I25.10 Atherosclerotic heart disease of native coronary artery without angina pectoris; I12.9 Hypertensive chronic kidney disease with stage 1 through stage 4 chronic kidney disease, or unspecified chronic kidney disease; E78.5 Hyperlipidemia, unspecified; E11.9 Type 2 diabetes mellitus without complications; E03.9 Hypothyroidism, unspecified; D64.9 Anemia, unspecified; Z91.030 Bee allergy status; Z79.4 Long term (current) use of insulin; Z79.82 Long term (current) use of aspirin; Z89.512 Acquired absence of left leg below knee; N18.4 Chronic kidney disease, stage 4 (severe)
CPT/HCPCS: 11004; 36415; 82330; 82947; 84132; 84295; 85014; 88304; J0131; J0360; J0665; J1170; J1920; J2250; J2405; J3010

== ENCOUNTER → 2023-05-27 | Outpatient (REF) | payer OTHER ==
[~2023-05-27] MED LIST changes: +HYDR-3713 PO; -ceFAZolin SOD 2 GM in IV 1 EA IV ONE
[2023-05-27 13:02] LABS: HEMATOCRIT 31.5 % (42.0-52.0); HEMOGLOBIN 9.7 g/dl (13.5-17.5); MEAN CORPUSCULAR HEMOGLOBIN 29.5 pg (27.0-33.0); MEAN CORPUSCULAR HGB CONC 30.8 g/dl (32.0-36.5); MEAN CORPUSCULAR VOLUME 95.7 fl (80.0-96.0); PLATELET COUNT, AUTOMATED 261 10^3/uL (150-450); RED BLOOD COUNT 3.29 10^6/uL (4.30-6.10); WHITE BLOOD COUNT 11.5 10^3/uL (4.0-10.0)
[2023-05-27 13:14] LABS: INR 1.21; PROTHROMBIN TIME 14.9 SECONDS (12.5-14.5)
[2023-05-27 13:26] LABS: ALBUMIN 2.7 G/DL (3.2-5.2); BILIRUBIN,TOTAL 0.2 MG/DL (0.3-1.2); CALCIUM LEVEL 9.5 MG/DL (8.5-10.1); CREATININE FOR GFR 3.96 MG/DL (0.70-1.30); GLOMERULAR FILTRATION RATE 16.9 (>56); POTASSIUM SERUM 4.5 MMOL/L (3.5-5.1); TOTAL PROTEIN 6.6 G/DL (5.7-8.2)
== END ==
LOC: SKLAB5 11:39
PROVIDERS: ATTEND Internal Medicine
DX: Z01.818 Encounter for other preprocedural examination (principal)

== ENCOUNTER → 2023-05-27 | Outpatient (CLI) | payer OTHER | LOC: M RAD 13:22 | PROVIDERS: ATTEND Internal Medicine | DX: Z01.818 Encounter for other preprocedural examination (principal); Z95.828 Presence of other vascular implants and grafts ==

== ENCOUNTER 2023-06-16 07:18 | Inpatient (IN) | payer OTHER ==
[~2023-06-16] VITALS: Ht 182.9 cm; Wt 127.1 kg
[~2023-06-16 07:18] MED LIST changes: +BENGAY TOP; +ceFAZolin SOD 2 GM in IV 1 EA IV ONE
[2023-06-16] MEDS ORDERED: LR 1,000 ML IV SCH ×2 (07:25→10:55)
[2023-06-16] MEDS ORDERED: propofoL 200 MG/20 ML VIAL As Ordered ONE (08:40)
[2023-06-16] MEDS ORDERED: LIDOCAINE 2% 100MG/5ML SDV (FOR ANES.) As Ordered ONE (08:41)
[2023-06-16] MEDS ORDERED: ONDANSETRON 4MG 2ML VIAL As Ordered ONE (08:41)
[2023-06-16] MEDS ORDERED: KETOROLAC 60MG 2ML VIAL As Ordered ONE (08:41)
[2023-06-16] MEDS ORDERED: ROCURONIUM BROMIDE 50MG/5ML VIAL As Ordered ONE (08:41)
[2023-06-16] MEDS ORDERED: SUGAMMADEX SODIUM 500 MG/5 ML VIAL (BRIDION) As Ordered ONE (08:41)
[2023-06-16] MEDS ORDERED: fentaNYL 100 MCG/2 ML INJECTION As Ordered ONE (08:45)
[2023-06-16] MEDS ORDERED: MIDAZOLAM INJ 2MG/2ML VIAL As Ordered ONE (08:45)
[2023-06-16] MEDS ORDERED: PHENYLEPHRINE 10MG/ML 1ML VIAL As Ordered ONE (08:54)
[2023-06-16] MEDS ORDERED: HYDROmorphone HCL 2MG/ML 1ML VIAL As Ordered ONE (09:39)
[2023-06-16] MEDS ORDERED: hydrALAZINE 20MG/ML 1ML VIAL As Ordered ONE (09:54)
[2023-06-16] MEDS ORDERED: oxyCODONE 5MG TAB PO PRN ×2 (10:55→13:30)
[2023-06-16] MEDS ORDERED: ONDANSETRON 4MG 2ML VIAL IV PRN (10:55)
[2023-06-16] MEDS ORDERED: INSULIN LISPRO (NovoLOG) PER UNIT SC PRN ×2 (11:05→12:35)
[2023-06-16] MEDS: fentaNYL 100 MCG/2 ML INJECTION IV PRN ×4 (11:19→11:42)
[2023-06-16] MEDS: HYDROMORPHONE HCL 0.5 MG/ 0.5 ML SYRINGE IV PRN ×6 (12:16→23:36)
[2023-06-16] MEDS ORDERED: DEXTROSE 50% 50ML SYRINGE IV PRN (12:45)
[2023-06-16] MEDS ORDERED: GLUCOSE 4GM CHEW TABLET PO PRN (12:45)
[2023-06-16] MEDS ORDERED: GLUCAGON INJ 1MG VIAL SC PRN (12:45)
[2023-06-16 13:25] LABS: HEMATOCRIT 36.2 % (42.0-52.0); HEMOGLOBIN 11.3 g/dl (13.5-17.5); MEAN CORPUSCULAR HEMOGLOBIN 29.8 pg (27.0-33.0); MEAN CORPUSCULAR HGB CONC 31.2 g/dl (32.0-36.5); MEAN CORPUSCULAR VOLUME 95.5 fl (80.0-96.0); PLATELET COUNT, AUTOMATED 274 10^3/uL (150-450); RED BLOOD COUNT 3.79 10^6/uL (4.30-6.10); WHITE BLOOD COUNT 13.5 10^3/uL (4.0-10.0)
[2023-06-16] MEDS ORDERED: HYDROMORPHONE HCL 0.5 MG/ 0.5 ML SYRINGE IV PRN (13:30)
[2023-06-16 13:50] LABS: C REACTIVE PROTEIN QUANTITATIV 4.3 MG/DL (<1.0)
[2023-06-16 13:51] LABS: CALCIUM LEVEL 9.2 MG/DL (8.5-10.1); CREATININE FOR GFR 4.76 MG/DL (0.70-1.30); GLOMERULAR FILTRATION RATE 13.7 (>56); POTASSIUM SERUM 5.5 MMOL/L (3.5-5.1)
[2023-06-16 13:59] LABS: PROCALCITONIN 0.45 ng/ml
[2023-06-16 14:07] LABS: ERYTHROCYTE SEDIMENTATION RATE > 130 mm/hr (0-20)
[2023-06-16 14:15] VITALS: BP 154/68; TEMP 97.4; O2SAT 99
[2023-06-16 14:55] VITALS: BP 158/83; TEMP 96.9; O2SAT 99
[2023-06-16] MEDS: PIPERACILLIN/TAZOBACTAM SOD 2.25 GM in D5W MINI-BAG PLUS 50 ML IV SCH ×2 (15:06→22:18)
[2023-06-16] MEDS ORDERED: MILKSUS3 PO (15:29)
[2023-06-16] MEDS ORDERED: HYDR-3713 PO (15:29)
[2023-06-16] MEDS ORDERED: POLY510P14 PO (15:29)
[2023-06-16] MEDS ORDERED: SANT250O8 TOP (15:29)
[2023-06-16] MEDS ORDERED: BISA10SU PR (15:29)
[2023-06-16] MEDS ORDERED: FLEEENE12 PR (15:29)
[2023-06-16] MEDS ORDERED: TRAZ-186 PO (15:29)
[2023-06-16] MEDS ORDERED: JUVE1POW PO (15:29)
[2023-06-16] MEDS ORDERED: LISI10TA22 PO (15:29)
[2023-06-16] MEDS ORDERED: CARV6.25 PO (15:29)
[2023-06-16] MEDS ORDERED: HOME MED LIST COMPLETE! XX SCH (15:35)
[2023-06-16] MEDS ORDERED: VANCOMYCIN HCL 750 MG, VIAL MATE ADAPTER 1 EACH in D5W 250 ML IV ONE ×2 (16:00→17:00)
[2023-06-16] MEDS ORDERED: FUROSEMIDE 20MG/2ML VIAL IV ONE (16:15)
[2023-06-16] MEDS ORDERED: PATIROMER SORBITEX CALCIUM 8.4 GM POWDER PACKET (VELTASSA) PO ONE (17:00)
[2023-06-16] MEDS: GABAPENTIN 100 MG CAP PO SCH ×2 (17:03→20:22)
[2023-06-16] MEDS: CALCIUM ACETATE 667MG GELCAP PO SCH (17:44)
[2023-06-16] MEDS: INSULIN LISPRO (NovoLOG) PER UNIT SC SCH ×2 (17:44→20:22)
[2023-06-16 20:00] VITALS: BP 130/76; TEMP 97.8; O2SAT 97
[2023-06-16] MEDS: TORSEMIDE 100 MG TAB PO SCH (20:22)
[2023-06-16] MEDS: SIMVASTATIN 40 MG TAB PO SCH (20:22)
[2023-06-16] MEDS: CARVedilol 6.25 MG TAB PO SCH (20:23)
[2023-06-17] VITALS (8 sets, daily range): BP systolic 118–180; BP diastolic 56–90; TEMP 97.5–98.2; O2SAT 94–100
[2023-06-17 04:59] LABS: HEMATOCRIT 32.9 % (42.0-52.0); HEMOGLOBIN 10.5 g/dl (13.5-17.5); MEAN CORPUSCULAR HEMOGLOBIN 30.6 pg (27.0-33.0); MEAN CORPUSCULAR HGB CONC 31.9 g/dl (32.0-36.5); MEAN CORPUSCULAR VOLUME 95.9 fl (80.0-96.0); PLATELET COUNT, AUTOMATED 280 10^3/uL (150-450); RED BLOOD COUNT 3.43 10^6/uL (4.30-6.10); WHITE BLOOD COUNT 14.5 10^3/uL (4.0-10.0)
[2023-06-17] MEDS: HYDROMORPHONE HCL 0.5 MG/ 0.5 ML SYRINGE IV PRN ×4 (05:00→21:49)
[2023-06-17 05:21] LABS: VANCOMYCIN RANDOM 15.7 UG/ML
[2023-06-17 05:24] LABS: CALCIUM LEVEL 8.8 MG/DL (8.5-10.1); CREATININE FOR GFR 5.26 MG/DL (0.70-1.30); GLOMERULAR FILTRATION RATE 12.2 (>56); POTASSIUM SERUM 5.5 MMOL/L (3.5-5.1)
[2023-06-17] MEDS: INSULIN LISPRO (NovoLOG) PER UNIT SC SCH ×4 (05:37→21:00)
[2023-06-17] MEDS: LEVOTHYROXINE 125MCG TABLET (0.125MG) PO SCH (05:37)
[2023-06-17] MEDS: PIPERACILLIN/TAZOBACTAM SOD 2.25 GM in D5W MINI-BAG PLUS 50 ML IV SCH ×3 (06:22→23:20)
[2023-06-17] MEDS: GABAPENTIN 100 MG CAP PO SCH ×3 (06:22→21:47)
[2023-06-17] MEDS ORDERED: SODIUM CHLORIDE 0.9% 1000ML IV PRN (06:55)
[2023-06-17] MEDS ORDERED: HEPARIN 1,000UNITS/ML 10ML VIAL (FOR RADIOLOGY & DIALYSIS ONLY) XX SCH (06:55)
[2023-06-17] MEDS ORDERED: HEPARIN 1,000UNITS/ML 10ML VIAL (FOR RADIOLOGY & DIALYSIS ONLY) IV PRN (06:55)
[2023-06-17 08:54] LABS: C REACTIVE PROTEIN QUANTITATIV 3.5 MG/DL (<1.0)
[2023-06-17] MEDS ORDERED: LEVEMIR (INSULIN DETEMIR) 1 UNITS/0.01ML SC SCH (09:00)
[2023-06-17] MEDS ORDERED: VANCOMYCIN HCL 500 MG in D5W MINI-BAG PLUS 100 ML IV ONE (09:00)
[2023-06-17] MEDS: CALCIUM ACETATE 667MG GELCAP PO SCH ×3 (10:00→18:10)
[2023-06-17] MEDS: ASPIRIN 81MG ENTERIC TABLET PO SCH (10:01)
[2023-06-17] MEDS: TORSEMIDE 100 MG TAB PO SCH ×2 (10:01→21:46)
[2023-06-17] MEDS: FOLIC ACID 1MG TAB PO SCH (10:02)
[2023-06-17] MEDS: LORATADINE 10 MG TAB PO SCH (10:03)
[2023-06-17] MEDS: CARVedilol 6.25 MG TAB PO SCH ×2 (10:03→21:47)
[2023-06-17] MEDS: MIRALAX *UNIT DOSE* 17GM PACKET PO SCH (10:04)
[2023-06-17] MEDS: LEVEMIR (INSULIN DETEMIR) 1 UNITS/0.01ML SC SCH ×2 (10:04→21:47)
[2023-06-17] MEDS ORDERED: VANCOMYCIN HCL 500 MG in D5W MINI-BAG PLUS 100 ML IV SCH (16:00)
[2023-06-17] MEDS ORDERED: VANCOMYCIN HCL 1,000 MG, VIAL MATE ADAPTER 1 EACH in D5W 250 ML IV SCH (16:00)
[2023-06-17] MEDS: SIMVASTATIN 40 MG TAB PO SCH (21:47)
[2023-06-18 01:30] VITALS: O2SAT 83
[2023-06-18 01:36] VITALS: O2SAT 96
[2023-06-18] MEDS: HYDROMORPHONE HCL 0.5 MG/ 0.5 ML SYRINGE IV PRN ×4 (04:53→19:43)
[2023-06-18 05:51] LABS: BASO # 0.1 10^3/uL (0.0-0.2); BASO % 0.9 % (0.0-1.0); EOS # 0.4 10^3/uL (0.0-0.5); EOS % 3.8 % (0.0-3.0); HEMATOCRIT 34.7 % (42.0-52.0); HEMOGLOBIN 11.1 g/dl (13.5-17.5); LYMPH # 1.7 10^3/uL (1.5-5.0); LYMPH % 16.4 % (24.0-44.0); MEAN CORPUSCULAR HEMOGLOBIN 30.5 pg (27.0-33.0); MEAN CORPUSCULAR VOLUME 95.3 fl (80.0-96.0); MONO # 0.8 10^3/uL (0.0-0.8); MONO % 7.2 % (2.0-8.0); NEUTROPHILS # 7.3 10^3/uL (1.5-8.5); NEUTROPHILS % 70.3 % (36.0-66.0); PLATELET COUNT, AUTOMATED 271 10^3/uL (150-450); RED BLOOD COUNT 3.64 10^6/uL (4.30-6.10); WHITE BLOOD COUNT 10.4 10^3/uL (4.0-10.0)
[2023-06-18 06:00] VITALS: BP 133/60; TEMP 97.3; O2SAT 98
[2023-06-18] MEDS ORDERED: LIDOCAINE 1% SDV 5ML VIAL SC PRN (06:00)
[2023-06-18] MEDS ORDERED: SODIUM CHLORIDE 0.9% 1000ML IV PRN (06:00)
[2023-06-18] MEDS ORDERED: HEPARIN 1,000UNITS/ML 10ML VIAL (FOR RADIOLOGY & DIALYSIS ONLY) XX SCH (06:00)
[2023-06-18 06:22] LABS: VANCOMYCIN RANDOM 13.7 UG/ML
[2023-06-18 06:24] LABS: CALCIUM LEVEL 8.7 MG/DL (8.5-10.1); CREATININE FOR GFR 3.68 MG/DL (0.70-1.30); GLOMERULAR FILTRATION RATE 18.4 (>56); POTASSIUM SERUM 4.4 MMOL/L (3.5-5.1)
[2023-06-18] MEDS: LEVOTHYROXINE 125MCG TABLET (0.125MG) PO SCH (06:29)
[2023-06-18] MEDS: PIPERACILLIN/TAZOBACTAM SOD 2.25 GM in D5W MINI-BAG PLUS 50 ML IV SCH ×3 (06:30→23:17)
[2023-06-18] MEDS: MIRALAX *UNIT DOSE* 17GM PACKET PO SCH (08:42)
[2023-06-18] MEDS: LEVEMIR (INSULIN DETEMIR) 1 UNITS/0.01ML SC SCH ×2 (08:42→20:44)
[2023-06-18] MEDS: INSULIN LISPRO (NovoLOG) PER UNIT SC SCH ×6 (08:42→21:00)
[2023-06-18] MEDS: CARVedilol 6.25 MG TAB PO SCH ×2 (08:43→20:44)
[2023-06-18] MEDS: GABAPENTIN 100 MG CAP PO SCH ×3 (08:43→20:44)
[2023-06-18] MEDS: ASPIRIN 81MG ENTERIC TABLET PO SCH (08:43)
[2023-06-18] MEDS: FOLIC ACID 1MG TAB PO SCH (08:43)
[2023-06-18] MEDS: TORSEMIDE 100 MG TAB PO SCH ×2 (08:43→20:44)
[2023-06-18] MEDS: CALCIUM ACETATE 667MG GELCAP PO SCH (08:43)
[2023-06-18] MEDS: LORATADINE 10 MG TAB PO SCH (08:43)
[2023-06-18] MEDS: PERCOCET 5MG/325MG TAB PO PRN (13:23)
[2023-06-18 14:00] VITALS: BP 112/54; TEMP 97.7; O2SAT 96
[2023-06-18] MEDS: HEPARIN SOD (PORCINE) 5000UNITS/ML 1ML VIAL/SYRINGE SQ SCH ×2 (14:27→20:45)
[2023-06-18] MEDS: (RENVELA) SEVELAMER **CARBONate** 800 MG TAB PO SCH ×2 (14:27→17:49)
[2023-06-18] MEDS: VANCOMYCIN HCL 750 MG, VIAL MATE ADAPTER 1 EACH in D5W 250 ML IV SCH (15:25)
[2023-06-18] MEDS: SIMVASTATIN 40 MG TAB PO SCH (20:43)
[2023-06-18 22:00] VITALS: BP 111/55; TEMP 97.7; O2SAT 95
[2023-06-19] MEDS: HYDROMORPHONE HCL 0.5 MG/ 0.5 ML SYRINGE IV PRN ×4 (00:31→15:09)
[2023-06-19] MEDS: BISACODYL 10MG SUPP PR PRN (01:20)
[2023-06-19 06:00] VITALS: BP 143/55; TEMP 97.5; O2SAT 95
[2023-06-19 06:11] LABS: BASO # 0.1 10^3/uL (0.0-0.2); BASO % 0.7 % (0.0-1.0); EOS # 0.6 10^3/uL (0.0-0.5); EOS % 4.6 % (0.0-3.0); HEMATOCRIT 34.6 % (42.0-52.0); HEMOGLOBIN 11.1 g/dl (13.5-17.5); LYMPH # 1.6 10^3/uL (1.5-5.0); LYMPH % 11.5 % (24.0-44.0); MEAN CORPUSCULAR HEMOGLOBIN 30.7 pg (27.0-33.0); MEAN CORPUSCULAR HGB CONC 32.1 g/dl (32.0-36.5); MEAN CORPUSCULAR VOLUME 95.6 fl (80.0-96.0); MONO # 1.1 10^3/uL (0.0-0.8); MONO % 8.3 % (2.0-8.0); NEUTROPHILS # 9.7 10^3/uL (1.5-8.5); NEUTROPHILS % 71.1 % (36.0-66.0); PLATELET COUNT, AUTOMATED 283 10^3/uL (150-450); RED BLOOD COUNT 3.62 10^6/uL (4.30-6.10); WHITE BLOOD COUNT 13.6 10^3/uL (4.0-10.0)
[2023-06-19] MEDS: LEVOTHYROXINE 125MCG TABLET (0.125MG) PO SCH (06:30)
[2023-06-19] MEDS: PIPERACILLIN/TAZOBACTAM SOD 2.25 GM in D5W MINI-BAG PLUS 50 ML IV SCH (06:30)
[2023-06-19] MEDS: HEPARIN SOD (PORCINE) 5000UNITS/ML 1ML VIAL/SYRINGE SQ SCH ×3 (06:30→21:00)
[2023-06-19 06:37] LABS: CALCIUM LEVEL 8.8 MG/DL (8.5-10.1); CREATININE FOR GFR 3.31 MG/DL (0.70-1.30); GLOMERULAR FILTRATION RATE 20.8 (>56); POTASSIUM SERUM 4.3 MMOL/L (3.5-5.1)
[2023-06-19] MEDS: (RENVELA) SEVELAMER **CARBONate** 800 MG TAB PO SCH ×3 (08:03→17:39)
[2023-06-19] MEDS: TORSEMIDE 100 MG TAB PO SCH ×2 (08:03→20:59)
[2023-06-19] MEDS: ASPIRIN 81MG ENTERIC TABLET PO SCH (08:03)
[2023-06-19] MEDS: CARVedilol 6.25 MG TAB PO SCH ×2 (08:04→21:01)
[2023-06-19] MEDS: MIRALAX *UNIT DOSE* 17GM PACKET PO SCH (08:04)
[2023-06-19] MEDS: LORATADINE 10 MG TAB PO SCH (08:04)
[2023-06-19] MEDS: FOLIC ACID 1MG TAB PO SCH (08:04)
[2023-06-19] MEDS: GABAPENTIN 100 MG CAP PO SCH ×3 (08:04→20:58)
[2023-06-19] MEDS: DOCUSATE SODIUM 100MG CAPSULE PO SCH ×2 (08:04→20:58)
[2023-06-19] MEDS: LEVEMIR (INSULIN DETEMIR) 1 UNITS/0.01ML SC SCH ×2 (08:05→20:59)
[2023-06-19] MEDS: INSULIN LISPRO (NovoLOG) PER UNIT SC SCH ×4 (08:05→20:43)
[2023-06-19] MEDS ORDERED: MOM 30ML SUSPENSION UDC PO ONE (10:00)
[2023-06-19] MEDS ORDERED: FLEET OIL RETENTION ENEMA PR PRN (11:45)
[2023-06-19 14:00] VITALS: BP 148/59; TEMP 97.5; O2SAT 97
[2023-06-19 20:00] VITALS: BP 135/58; TEMP 97.7; O2SAT 97
[2023-06-19] MEDS: PERCOCET 5MG/325MG TAB PO PRN (20:58)
[2023-06-19] MEDS: SIMVASTATIN 40 MG TAB PO SCH (20:59)
[2023-06-20] MEDS: LEVOTHYROXINE 125MCG TABLET (0.125MG) PO SCH (05:30)
[2023-06-20] MEDS: HEPARIN SOD (PORCINE) 5000UNITS/ML 1ML VIAL/SYRINGE SQ SCH ×3 (05:31→20:20)
[2023-06-20] MEDS: PERCOCET 5MG/325MG TAB PO PRN ×2 (05:32→20:23)
[2023-06-20 06:00] VITALS: BP 130/56; TEMP 97.9; O2SAT 95
[2023-06-20 06:20] LABS: BASO # 0.1 10^3/uL (0.0-0.2); BASO % 0.5 % (0.0-1.0); EOS # 0.4 10^3/uL (0.0-0.5); EOS % 3.4 % (0.0-3.0); HEMATOCRIT 32.7 % (42.0-52.0); HEMOGLOBIN 10.4 g/dl (13.5-17.5); LYMPH # 1.5 10^3/uL (1.5-5.0); LYMPH % 11.8 % (24.0-44.0); MEAN CORPUSCULAR HEMOGLOBIN 30.1 pg (27.0-33.0); MEAN CORPUSCULAR HGB CONC 31.8 g/dl (32.0-36.5); MEAN CORPUSCULAR VOLUME 94.8 fl (80.0-96.0); MONO % 8.2 % (2.0-8.0); NEUTROPHILS # 9.2 10^3/uL (1.5-8.5); NEUTROPHILS % 73.3 % (36.0-66.0); PLATELET COUNT, AUTOMATED 256 10^3/uL (150-450); RED BLOOD COUNT 3.45 10^6/uL (4.30-6.10); WHITE BLOOD COUNT 12.6 10^3/uL (4.0-10.0)
[2023-06-20 06:44] LABS: CREATININE FOR GFR 4.15 MG/DL (0.70-1.30); POTASSIUM SERUM 4.6 MMOL/L (3.5-5.1)
[2023-06-20] MEDS: INSULIN LISPRO (NovoLOG) PER UNIT SC SCH ×4 (07:30→20:04)
[2023-06-20 07:41] LABS: VANCOMYCIN RANDOM 15.3 UG/ML
[2023-06-20] MEDS: MIRALAX *UNIT DOSE* 17GM PACKET PO SCH (08:49)
[2023-06-20] MEDS: TORSEMIDE 100 MG TAB PO SCH ×2 (08:49→20:19)
[2023-06-20] MEDS: LEVEMIR (INSULIN DETEMIR) 1 UNITS/0.01ML SC SCH ×2 (08:49→20:21)
[2023-06-20] MEDS: (RENVELA) SEVELAMER **CARBONate** 800 MG TAB PO SCH ×3 (08:50→18:21)
[2023-06-20] MEDS: DOCUSATE SODIUM 100MG CAPSULE PO SCH (08:50)
[2023-06-20] MEDS: GABAPENTIN 100 MG CAP PO SCH ×3 (08:50→20:22)
[2023-06-20] MEDS: LORATADINE 10 MG TAB PO SCH (08:50)
[2023-06-20] MEDS: FOLIC ACID 1MG TAB PO SCH (08:50)
[2023-06-20] MEDS: ASPIRIN 81MG ENTERIC TABLET PO SCH (08:50)
[2023-06-20] MEDS: CARVedilol 6.25 MG TAB PO SCH ×2 (08:55→20:21)
[2023-06-20] MEDS: SENNA 8.6 MG TAB (SENOKOT) PO SCH ×2 (09:00→20:19)
[2023-06-20] MEDS ORDERED: PERCOCET 5MG/325MG TAB PO PRN (09:05)
[2023-06-20] MEDS: HYDROMORPHONE HCL 0.5 MG/ 0.5 ML SYRINGE IV PRN ×2 (10:06→13:43)
[2023-06-20] MEDS: BISACODYL 10MG SUPP PR PRN (10:06)
[2023-06-20 14:00] VITALS: BP 171/67; TEMP 97.7; O2SAT 97
[2023-06-20 15:04] VITALS: BP 167/67
[2023-06-20] MEDS ORDERED: **hydrALAZINE HCL** 25 MG TAB PO PRN (15:40)
[2023-06-20 17:39] VITALS: BP 124/47
[2023-06-20 20:00] VITALS: BP 122/52; TEMP 97.9; O2SAT 96
[2023-06-20] MEDS: SIMVASTATIN 40 MG TAB PO SCH (20:19)
[2023-06-21] MEDS: MIRALAX *UNIT DOSE* 17GM PACKET PO SCH (05:27)
[2023-06-21] MEDS: SENNA 8.6 MG TAB (SENOKOT) PO SCH ×2 (05:28→20:53)
[2023-06-21] MEDS: ASPIRIN 81MG ENTERIC TABLET PO SCH (05:28)
[2023-06-21] MEDS: TORSEMIDE 100 MG TAB PO SCH ×2 (05:28→20:53)
[2023-06-21] MEDS: LORATADINE 10 MG TAB PO SCH (05:31)
[2023-06-21] MEDS: CARVedilol 6.25 MG TAB PO SCH ×2 (05:31→20:57)
[2023-06-21] MEDS: FOLIC ACID 1MG TAB PO SCH (05:31)
[2023-06-21] MEDS: GABAPENTIN 100 MG CAP PO SCH ×3 (05:32→20:53)
[2023-06-21] MEDS: LEVOTHYROXINE 125MCG TABLET (0.125MG) PO SCH (05:32)
[2023-06-21] MEDS: HEPARIN SOD (PORCINE) 5000UNITS/ML 1ML VIAL/SYRINGE SQ SCH ×3 (05:33→20:53)
[2023-06-21] MEDS: (RENVELA) SEVELAMER **CARBONate** 800 MG TAB PO SCH ×3 (05:35→18:00)
[2023-06-21] MEDS: PERCOCET 5MG/325MG TAB PO PRN ×3 (05:36→18:45)
[2023-06-21 06:00] VITALS: BP 121/44; TEMP 97.7; O2SAT 95
[2023-06-21] MEDS ORDERED: HEPARIN 1,000UNITS/ML 10ML VIAL (FOR RADIOLOGY & DIALYSIS ONLY) IV PRN (06:00)
[2023-06-21] MEDS ORDERED: LIDOCAINE 1% SDV 5ML VIAL SC PRN (06:00)
[2023-06-21] MEDS ORDERED: SODIUM CHLORIDE 0.9% 1000ML IV PRN (06:00)
[2023-06-21] MEDS ORDERED: HEPARIN 1,000UNITS/ML 10ML VIAL (FOR RADIOLOGY & DIALYSIS ONLY) XX SCH (06:00)
[2023-06-21 06:13] LABS: BASO # 0.1 10^3/uL (0.0-0.2); BASO % 0.7 % (0.0-1.0); EOS # 0.5 10^3/uL (0.0-0.5); HEMATOCRIT 33.8 % (42.0-52.0); HEMOGLOBIN 10.6 g/dl (13.5-17.5); LYMPH # 1.8 10^3/uL (1.5-5.0); LYMPH % 16.7 % (24.0-44.0); MEAN CORPUSCULAR HEMOGLOBIN 30.1 pg (27.0-33.0); MEAN CORPUSCULAR HGB CONC 31.4 g/dl (32.0-36.5); MONO # 0.8 10^3/uL (0.0-0.8); MONO % 7.4 % (2.0-8.0); NEUTROPHILS # 7.1 10^3/uL (1.5-8.5); NEUTROPHILS % 65.5 % (36.0-66.0); PLATELET COUNT, AUTOMATED 261 10^3/uL (150-450); RED BLOOD COUNT 3.52 10^6/uL (4.30-6.10); WHITE BLOOD COUNT 10.7 10^3/uL (4.0-10.0)
[2023-06-21 06:46] LABS: CALCIUM LEVEL 8.7 MG/DL (8.5-10.1); CREATININE FOR GFR 4.76 MG/DL (0.70-1.30); GLOMERULAR FILTRATION RATE 13.7 (>56); MAGNESIUM LEVEL 2.2 MG/DL (1.8-2.4); POTASSIUM SERUM 4.7 MMOL/L (3.5-5.1)
[2023-06-21] MEDS ORDERED: VANCOMYCIN HCL 500 MG in D5W MINI-BAG PLUS 100 ML IV ONE (08:00)
[2023-06-21] MEDS: INSULIN LISPRO (NovoLOG) PER UNIT SC SCH ×4 (08:45→20:54)
[2023-06-21] MEDS ORDERED: HYDROmorphone 2 MG TAB PO PRN (09:50)
[2023-06-21] MEDS: SIMETHICONE 80MG CHEW TAB PO SCH ×3 (09:54→20:53)
[2023-06-21] MEDS ORDERED: PILL CUTTER 1 EACH XX PRN (09:55)
[2023-06-21] MEDS ORDERED: BASA100I SC (10:02)
[2023-06-21] MEDS ORDERED: SIME80TA16 PO (10:02)
[2023-06-21] MEDS ORDERED: VANC1PLA7 IV (10:02)
[2023-06-21] MEDS ORDERED: SENO8.6T5 PO (10:02)
[2023-06-21 14:00] VITALS: BP 125/50; TEMP 98.1; O2SAT 99
[2023-06-21] MEDS: LEVEMIR (INSULIN DETEMIR) 1 UNITS/0.01ML SC SCH (20:52)
[2023-06-21] MEDS: SIMVASTATIN 40 MG TAB PO SCH (20:53)
[2023-06-21 22:04] VITALS: BP 174/83; TEMP 98.1; O2SAT 96
[2023-06-22] MEDS: VANCOMYCIN HCL 750 MG, VIAL MATE ADAPTER 1 EACH in D5W 250 ML IV SCH (01:35)
[2023-06-22] MEDS: LEVOTHYROXINE 125MCG TABLET (0.125MG) PO SCH (05:13)
[2023-06-22] MEDS: HEPARIN SOD (PORCINE) 5000UNITS/ML 1ML VIAL/SYRINGE SQ SCH (05:13)
[2023-06-22] MEDS: PERCOCET 5MG/325MG TAB PO PRN ×2 (05:26→09:53)
[2023-06-22 06:01] VITALS: BP 178/79; TEMP 98.1; O2SAT 98
[2023-06-22 06:39] VITALS: BP 124/98
[2023-06-22] MEDS: INSULIN LISPRO (NovoLOG) PER UNIT SC SCH (08:15)
[2023-06-22] MEDS: MIRALAX *UNIT DOSE* 17GM PACKET PO SCH (08:15)
[2023-06-22] MEDS: FOLIC ACID 1MG TAB PO SCH (08:15)
[2023-06-22] MEDS: SIMETHICONE 80MG CHEW TAB PO SCH (08:15)
[2023-06-22] MEDS: ASPIRIN 81MG ENTERIC TABLET PO SCH (08:15)
[2023-06-22] MEDS: GABAPENTIN 100 MG CAP PO SCH (08:15)
[2023-06-22] MEDS: (RENVELA) SEVELAMER **CARBONate** 800 MG TAB PO SCH (08:16)
[2023-06-22] MEDS: LORATADINE 10 MG TAB PO SCH (08:16)
[2023-06-22] MEDS: TORSEMIDE 100 MG TAB PO SCH (08:16)
[2023-06-22] MEDS: SENNA 8.6 MG TAB (SENOKOT) PO SCH (08:16)
[2023-06-22 08:22] VITALS: BP 170/92
[2023-06-22] MEDS: CARVedilol 6.25 MG TAB PO SCH (08:22)
[2023-06-22] MEDS ORDERED: PERCOCET PO (08:54)
== END 2023-06-22 11:29 | disposition home or self-care (01) | DRG 481 ==
LOC: M SDC 07:18 → M PCU 12:38 → M MSPAV 06-17 20:39
PROVIDERS: ADMIT Internal Medicine; ATTEND Internal Medicine
PROC: 0VTS0ZZ Resection of Penis, Open Approach (ICD-10-PCS; principal; 2023-06-16 08:50)
DX: N48.22 Cellulitis of corpus cavernosum and penis (principal); I13.2 Hypertensive heart and chronic kidney disease with heart failure and with stage 5 chronic kidney disease, or end stage renal disease; I96 Gangrene, not elsewhere classified; E11.52 Type 2 diabetes mellitus with diabetic peripheral angiopathy with gangrene; N18.6 End stage renal disease; I50.32 Chronic diastolic (congestive) heart failure; E11.22 Type 2 diabetes mellitus with diabetic chronic kidney disease; E11.40 Type 2 diabetes mellitus with diabetic neuropathy, unspecified; E87.5 Hyperkalemia; E11.319 Type 2 diabetes mellitus with unspecified diabetic retinopathy without macular edema; N48.89 Other specified disorders of penis; Z89.512 Acquired absence of left leg below knee; E03.9 Hypothyroidism, unspecified; Z99.2 Dependence on renal dialysis; K59.00 Constipation, unspecified; R31.9 Hematuria, unspecified; H54.8 Legal blindness, as defined in USA; Z91.040 Latex allergy status; Z91.030 Bee allergy status; Z79.899 Other long term (current) drug therapy; Z79.82 Long term (current) use of aspirin; Z79.4 Long term (current) use of insulin; Z89.421 Acquired absence of other right toe(s); Z87.891 Personal history of nicotine dependence; E78.5 Hyperlipidemia, unspecified; B95.8 Unspecified staphylococcus as the cause of diseases classified elsewhere

== ENCOUNTER → 2023-06-28 | Outpatient (REF) | payer OTHER ==
[~2023-06-28] MED LIST changes: +BISA10SU PR; +CARV6.25 PO; +HYDR-161 PO; -HYDR10TAB PO; +JUVE1POW PO; +POLY510P14 PO; +SANT250O8 TOP; +SENO8.6T5 PO; +SIME80TA16 PO; +TRAZ-186 PO; +VANC1PLA7 IV; -ceFAZolin SOD 2 GM in IV 1 EA IV ONE
[2023-06-28 14:01] LABS: BASO # 0.1 10^3/uL (0.0-0.2); EOS # 0.5 10^3/uL (0.0-0.5); EOS % 6.1 % (0.0-3.0); HEMOGLOBIN 11.5 g/dl (13.5-17.5); LYMPH # 1.3 10^3/uL (1.5-5.0); LYMPH % 16.4 % (24.0-44.0); MEAN CORPUSCULAR HEMOGLOBIN 30.3 pg (27.0-33.0); MEAN CORPUSCULAR HGB CONC 31.1 g/dl (32.0-36.5); MEAN CORPUSCULAR VOLUME 97.6 fl (80.0-96.0); MONO # 0.6 10^3/uL (0.0-0.8); MONO % 7.2 % (2.0-8.0); NEUTROPHILS # 5.3 10^3/uL (1.5-8.5); NEUTROPHILS % 67.9 % (36.0-66.0); PLATELET COUNT, AUTOMATED 252 10^3/uL (150-450); RED BLOOD COUNT 3.79 10^6/uL (4.30-6.10); WHITE BLOOD COUNT 7.7 10^3/uL (4.0-10.0)
[2023-06-28 14:24] LABS: ALBUMIN 3.2 G/DL (3.2-5.2); BILIRUBIN,TOTAL 0.3 MG/DL (0.3-1.2); CREATININE FOR GFR 2.71 MG/DL (0.70-1.30); GLOMERULAR FILTRATION RATE 26.2 (>56)
== END ==
LOC: SKLAB5 07:00
PROVIDERS: ATTEND Nurse Practitioner Family
DX: N18.6 End stage renal disease (principal)

== ENCOUNTER → 2023-07-05 | Outpatient (REF) | payer OTHER | LOC: SKLAB5 08:27 | PROVIDERS: ATTEND Nurse Practitioner Family | DX: N18.6 End stage renal disease (principal); Z53.8 Procedure and treatment not carried out for other reasons ==

== ENCOUNTER → 2023-07-05 | Outpatient (REF) | payer OTHER ==
[2023-07-05 13:24] LABS: BASO # 0.1 10^3/uL (0.0-0.2); BASO % 0.7 % (0.0-1.0); EOS # 0.4 10^3/uL (0.0-0.5); EOS % 5.9 % (0.0-3.0); HEMATOCRIT 36.4 % (42.0-52.0); HEMOGLOBIN 11.5 g/dl (13.5-17.5); LYMPH # 1.3 10^3/uL (1.5-5.0); LYMPH % 18.4 % (24.0-44.0); MEAN CORPUSCULAR HEMOGLOBIN 31.1 pg (27.0-33.0); MEAN CORPUSCULAR HGB CONC 31.6 g/dl (32.0-36.5); MEAN CORPUSCULAR VOLUME 98.4 fl (80.0-96.0); MONO # 0.5 10^3/uL (0.0-0.8); MONO % 7.4 % (2.0-8.0); NEUTROPHILS # 4.8 10^3/uL (1.5-8.5); NEUTROPHILS % 66.9 % (36.0-66.0); PLATELET COUNT, AUTOMATED 208 10^3/uL (150-450); WHITE BLOOD COUNT 7.2 10^3/uL (4.0-10.0)
[2023-07-05 13:52] LABS: ALBUMIN 3.3 G/DL (3.2-5.2); BILIRUBIN,TOTAL 0.5 MG/DL (0.3-1.2); CALCIUM LEVEL 9.3 MG/DL (8.5-10.1); CREATININE FOR GFR 2.77 MG/DL (0.70-1.30); GLOMERULAR FILTRATION RATE 25.6 (>56); POTASSIUM SERUM 4.2 MMOL/L (3.5-5.1); TOTAL PROTEIN 7.3 G/DL (5.7-8.2)
== END ==
LOC: SKLAB5 08:27
PROVIDERS: ATTEND Nurse Practitioner Family
DX: N18.6 End stage renal disease (principal)

== ENCOUNTER → 2023-07-12 | Outpatient (REF) | payer OTHER ==
[2023-07-12 13:27] LABS: BASO # 0.1 10^3/uL (0.0-0.2); BASO % 1.1 % (0.0-1.0); EOS # 0.5 10^3/uL (0.0-0.5); EOS % 6.8 % (0.0-3.0); HEMATOCRIT 35.8 % (42.0-52.0); LYMPH # 1.1 10^3/uL (1.5-5.0); LYMPH % 16.7 % (24.0-44.0); MEAN CORPUSCULAR HEMOGLOBIN 30.4 pg (27.0-33.0); MEAN CORPUSCULAR HGB CONC 30.7 g/dl (32.0-36.5); MEAN CORPUSCULAR VOLUME 98.9 fl (80.0-96.0); MONO # 0.6 10^3/uL (0.0-0.8); MONO % 8.7 % (2.0-8.0); NEUTROPHILS # 4.4 10^3/uL (1.5-8.5); NEUTROPHILS % 65.9 % (36.0-66.0); PLATELET COUNT, AUTOMATED 170 10^3/uL (150-450); RED BLOOD COUNT 3.62 10^6/uL (4.30-6.10); WHITE BLOOD COUNT 6.7 10^3/uL (4.0-10.0)
[2023-07-12 13:58] LABS: ALBUMIN 3.5 G/DL (3.2-5.2); BILIRUBIN,TOTAL 0.3 MG/DL (0.3-1.2); CALCIUM LEVEL 9.3 MG/DL (8.5-10.1); CREATININE FOR GFR 2.99 MG/DL (0.70-1.30); GLOMERULAR FILTRATION RATE 23.4 (>56); POTASSIUM SERUM 4.5 MMOL/L (3.5-5.1); TOTAL PROTEIN 7.1 G/DL (5.7-8.2)
== END ==
LOC: SKLAB5 08:19
PROVIDERS: ATTEND Nurse Practitioner Family
DX: N18.9 Chronic kidney disease, unspecified (principal)

== ENCOUNTER 2023-07-15 19:03 | Inpatient (IN) | payer OTHER ==
[~2023-07-15] VITALS: Ht 182.9 cm; Wt 124.6 kg
[~2023-07-15 19:03] MED LIST changes: -SENN-186 PO
[2023-07-15] MEDS: ONDANSETRON 4MG 2ML VIAL IV ONE (19:38)
[2023-07-15] MEDS: NS 1,000 ML IV ONE (19:38)
[2023-07-15 20:03] LABS: BASO % 0.3 % (0.0-1.0); EOS # 0.1 10^3/uL (0.0-0.5); EOS % 1.3 % (0.0-3.0); HEMATOCRIT 37.1 % (42.0-52.0); HEMOGLOBIN 12.1 g/dl (13.5-17.5); LYMPH # 0.4 10^3/uL (1.5-5.0); LYMPH % 3.6 % (24.0-44.0); MEAN CORPUSCULAR HEMOGLOBIN 31.3 pg (27.0-33.0); MEAN CORPUSCULAR HGB CONC 32.6 g/dl (32.0-36.5); MEAN CORPUSCULAR VOLUME 96.1 fl (80.0-96.0); MONO # 0.8 10^3/uL (0.0-0.8); MONO % 7.5 % (2.0-8.0); NEUTROPHILS # 9.4 10^3/uL (1.5-8.5); NEUTROPHILS % 86.8 % (36.0-66.0); PLATELET COUNT, AUTOMATED 225 10^3/uL (150-450); RED BLOOD COUNT 3.86 10^6/uL (4.30-6.10); WHITE BLOOD COUNT 10.8 10^3/uL (4.0-10.0)
[2023-07-15 20:15] LABS: INR 1.21; PROTHROMBIN TIME 14.9 SECONDS (12.5-14.5)
[2023-07-15 20:16] LABS: PARTIAL THROMBOPLASTIN TIME 34.5 SECONDS (24.8-34.2)
[2023-07-15 20:27] LABS: ALBUMIN 3.4 G/DL (3.2-5.2); BILIRUBIN,DIRECT 0.2 MG/DL (<0.4); BILIRUBIN,TOTAL 0.4 MG/DL (0.3-1.2); CREATININE FOR GFR 4.91 MG/DL (0.70-1.30); GLOMERULAR FILTRATION RATE 13.2 (>56); POTASSIUM SERUM 4.5 MMOL/L (3.5-5.1); TOTAL PROTEIN 7.7 G/DL (5.7-8.2)
[2023-07-15 20:39] LABS: PROCALCITONIN 0.83 ng/ml
[2023-07-15] MEDS: ACETAMINOPHEN 325 MG TAB PO ONE (20:46)
[2023-07-15] MEDS ORDERED: BASA100I SC (21:54)
[2023-07-15] MEDS ORDERED: SENN-186 PO (21:54)
[2023-07-15] MEDS ORDERED: OXYC-517 PO (21:54)
[2023-07-15] MEDS ORDERED: HOME MED LIST COMPLETE! XX SCH (22:00)
[2023-07-15] MEDS: cefTRIAXone SOD 2 GM in D5W MINI-BAG PLUS 50 ML IV ONE (22:52)
[2023-07-15 23:20] LABS: RSV AMPLIFICATION NEGATIVE (NEGATIVE)
[2023-07-16] VITALS (19 sets, daily range): BP systolic 140–165; BP diastolic 61–69; TEMP 96.8–97.8; O2SAT 91–100
[2023-07-16 00:03] LABS: MAGNESIUM LEVEL 2.1 MG/DL (1.8-2.4)
[2023-07-16] MEDS ORDERED: GLUCAGON INJ 1MG VIAL SC PRN (00:35)
[2023-07-16] MEDS ORDERED: DEXTROSE 50% 50ML SYRINGE IV PRN (00:35)
[2023-07-16] MEDS ORDERED: GLUCOSE 4GM CHEW TABLET PO PRN (00:35)
[2023-07-16] MEDS ORDERED: BISACODYL 10MG SUPP PR PRN (00:40)
[2023-07-16] MEDS ORDERED: ACETAMINOPHEN TAB 650MG DOSE (2X325MG) PO PRN (00:40)
[2023-07-16] MEDS: CEFEPIME HCL 2 GM in D5W 50 ML IV SCH (06:20)
[2023-07-16] MEDS: GABAPENTIN 100 MG CAP PO SCH (06:21)
[2023-07-16] MEDS: FOLIC ACID 1MG TAB PO SCH (06:21)
[2023-07-16] MEDS: LEVOTHYROXINE 125MCG TABLET (0.125MG) PO SCH (06:21)
[2023-07-16 06:35] LABS: HEMATOCRIT 33.9 % (42.0-52.0); HEMOGLOBIN 10.8 g/dl (13.5-17.5); MEAN CORPUSCULAR HEMOGLOBIN 30.6 pg (27.0-33.0); MEAN CORPUSCULAR HGB CONC 31.9 g/dl (32.0-36.5); PLATELET COUNT, AUTOMATED 207 10^3/uL (150-450); RED BLOOD COUNT 3.53 10^6/uL (4.30-6.10)
[2023-07-16 06:58] LABS: ALBUMIN 2.7 G/DL (3.2-5.2); BILIRUBIN,TOTAL 0.3 MG/DL (0.3-1.2); CALCIUM LEVEL 9.2 MG/DL (8.5-10.1); CREATININE FOR GFR 5.15 MG/DL (0.70-1.30); GLOMERULAR FILTRATION RATE 12.5 (>56); MAGNESIUM LEVEL 2.2 MG/DL (1.8-2.4); POTASSIUM SERUM 4.4 MMOL/L (3.5-5.1); TOTAL PROTEIN 6.6 G/DL (5.7-8.2)
[2023-07-16] MEDS ORDERED: JUVEN PO SCH (09:00)
[2023-07-16] MEDS ORDERED: POLYETHYLENE GLYCOL (MIRALAX) 238GM BOTTLE PO SCH (09:00)
[2023-07-16] MEDS: HEPARIN SOD (PORCINE) 5000UNITS/ML 1ML VIAL/SYRINGE SC SCH (09:22)
[2023-07-16] MEDS: LORATADINE 10 MG TAB PO SCH (09:23)
[2023-07-16] MEDS: CARVedilol 6.25 MG TAB PO SCH (09:23)
[2023-07-16] MEDS: INSULIN LISPRO (NovoLOG) PER UNIT SC SCH ×2 (09:23→21:00)
[2023-07-16] MEDS: SENNA 8.6 MG TAB (SENOKOT) PO SCH (09:24)
[2023-07-16] MEDS: oxyCODONE 5MG TAB PO SCH (09:25)
[2023-07-16] MEDS: CALCIUM ACETATE 667MG GELCAP PO SCH (09:33)
[2023-07-16] MEDS: MIRALAX *UNIT DOSE* 17GM PACKET PO SCH (09:33)
[2023-07-16] MEDS ORDERED: MOM 30ML SUSPENSION UDC PO PRN (09:40)
[2023-07-16] MEDS ORDERED: HEPARIN 1,000UNITS/ML 10ML VIAL (FOR RADIOLOGY & DIALYSIS ONLY) XX SCH (11:00)
[2023-07-16] MEDS ORDERED: SODIUM CHLORIDE 0.9% 1000ML IV PRN (11:00)
[2023-07-16] MEDS ORDERED: HEPARIN 1,000UNITS/ML 10ML VIAL (FOR RADIOLOGY & DIALYSIS ONLY) IV PRN (11:00)
[2023-07-16] MEDS: ASPIRIN 81MG ENTERIC TABLET PO SCH (11:23)
[2023-07-16] MEDS: (RENVELA) SEVELAMER **CARBONate** 800 MG TAB PO SCH (11:23)
[2023-07-16] MEDS: TORSEMIDE 100 MG TAB PO SCH (11:47)
[2023-07-16] MEDS: DARBEPOETIN 100MCG/0.5ML *DIALYSIS* SYRINGE IV SCH (12:50)
[2023-07-16] MEDS: CEFEPIME HCL 1 GM in D5W MINI-BAG PLUS 50 ML IV SCH (17:09)
[2023-07-16] MEDS: ACETAMINOPHEN 500 MG TAB PO PRN (17:10)
[2023-07-16] MEDS: SIMVASTATIN 40 MG TAB PO SCH (21:49)
[2023-07-16] MEDS: traZODone 50 MG TAB PO SCH (21:49)
[2023-07-17] VITALS (32 sets, daily range): BP systolic 134–184; BP diastolic 65–81; TEMP 97.5–98.9; O2SAT 38–100
[2023-07-17 07:25] LABS: HEMATOCRIT 37.7 % (42.0-52.0); HEMOGLOBIN 12.1 g/dl (13.5-17.5); MEAN CORPUSCULAR HEMOGLOBIN 31.2 pg (27.0-33.0); MEAN CORPUSCULAR HGB CONC 32.1 g/dl (32.0-36.5); MEAN CORPUSCULAR VOLUME 97.2 fl (80.0-96.0); PLATELET COUNT, AUTOMATED 194 10^3/uL (150-450); RED BLOOD COUNT 3.88 10^6/uL (4.30-6.10)
[2023-07-17] MEDS ORDERED: NITROGLYCERIN 0.4MG SUBL TABLET SL PRN (07:35)
[2023-07-17 07:46] LABS: CALCIUM LEVEL 8.8 MG/DL (8.5-10.1); CREATININE FOR GFR 3.79 MG/DL (0.70-1.30); GLOMERULAR FILTRATION RATE 17.8 (>56); POTASSIUM SERUM 4.3 MMOL/L (3.5-5.1)
[2023-07-17] MEDS ORDERED: CEFDINIR 300 MG CAP (OMNICEF) PO ONE (18:00)
[2023-07-18] VITALS (14 sets, daily range): BP systolic 146–169; BP diastolic 67–84; TEMP 96.2–97.5; O2SAT 94–99
[2023-07-18] MEDS: METOCLOPRAMIDE INJ 10MG/2ML VIAL IV ONE (08:58)
[2023-07-18] MEDS: KETOROLAC 30 MG/ML 1ML VIAL IV ONE (08:59)
[2023-07-18] MEDS: diphenhydrAMINE 50MG/ML VIAL IV ONE (09:00)
[2023-07-18 09:19] LABS: CALCIUM LEVEL 9.1 MG/DL (8.5-10.1); CREATININE FOR GFR 4.77 MG/DL (0.70-1.30); GLOMERULAR FILTRATION RATE 13.7 (>56); POTASSIUM SERUM 3.8 MMOL/L (3.5-5.1)
[2023-07-18 10:32] LABS: BASO # 0.1 10^3/uL (0.0-0.2); BASO % 0.9 % (0.0-1.0); EOS # 0.4 10^3/uL (0.0-0.5); EOS % 7.6 % (0.0-3.0); HEMATOCRIT 35.7 % (42.0-52.0); HEMOGLOBIN 11.3 g/dl (13.5-17.5); LYMPH # 0.9 10^3/uL (1.5-5.0); LYMPH % 17.5 % (24.0-44.0); MEAN CORPUSCULAR HEMOGLOBIN 30.5 pg (27.0-33.0); MEAN CORPUSCULAR HGB CONC 31.7 g/dl (32.0-36.5); MEAN CORPUSCULAR VOLUME 96.2 fl (80.0-96.0); MONO # 0.9 10^3/uL (0.0-0.8); MONO % 16.6 % (2.0-8.0); NEUTROPHILS % 56.1 % (36.0-66.0); PLATELET COUNT, AUTOMATED 207 10^3/uL (150-450); RED BLOOD COUNT 3.71 10^6/uL (4.30-6.10); WHITE BLOOD COUNT 5.4 10^3/uL (4.0-10.0)
[2023-07-18] MEDS: LevoFLOXacin 750 MG TABLET PO ONE (17:25)
[2023-07-19 02:00] VITALS: BP 135/73; TEMP 97.5; O2SAT 94
[2023-07-19] MEDS ORDERED: SODIUM CHLORIDE 0.9% 1000ML IV PRN (06:00)
[2023-07-19] MEDS ORDERED: HEPARIN 1,000UNITS/ML 10ML VIAL (FOR RADIOLOGY & DIALYSIS ONLY) XX SCH (06:00)
[2023-07-19] MEDS ORDERED: HEPARIN 1,000UNITS/ML 10ML VIAL (FOR RADIOLOGY & DIALYSIS ONLY) IV PRN (06:00)
[2023-07-19 06:40] VITALS: BP 158/78; TEMP 97.9; O2SAT 98
[2023-07-19 06:54] VITALS: BP 158/78
[2023-07-19 07:55] LABS: BASO % 0.9 % (0.0-1.0); EOS # 0.4 10^3/uL (0.0-0.5); EOS % 9.7 % (0.0-3.0); HEMATOCRIT 35.5 % (42.0-52.0); HEMOGLOBIN 11.7 g/dl (13.5-17.5); LYMPH # 1.1 10^3/uL (1.5-5.0); LYMPH % 24.1 % (24.0-44.0); MEAN CORPUSCULAR VOLUME 93.9 fl (80.0-96.0); MONO # 0.7 10^3/uL (0.0-0.8); MONO % 15.5 % (2.0-8.0); NEUTROPHILS # 2.1 10^3/uL (1.5-8.5); NEUTROPHILS % 47.1 % (36.0-66.0); PLATELET COUNT, AUTOMATED 209 10^3/uL (150-450); RED BLOOD COUNT 3.78 10^6/uL (4.30-6.10); WHITE BLOOD COUNT 4.4 10^3/uL (4.0-10.0)
[2023-07-19 08:27] LABS: ALBUMIN 2.7 G/DL (3.2-5.2); BILIRUBIN,TOTAL 0.2 MG/DL (0.3-1.2); CREATININE FOR GFR 5.17 MG/DL (0.70-1.30); GLOMERULAR FILTRATION RATE 12.5 (>56); TOTAL PROTEIN 6.5 G/DL (5.7-8.2)
[2023-07-19] MEDS ORDERED: LEVO1TAB38 PO (10:26)
[2023-07-19] MEDS ORDERED: LevoFLOXacin 250 MG TABLET PO SCH (16:00)
[2023-07-19] MEDS ORDERED: CEFDINIR 300 MG CAP (OMNICEF) PO SCH (18:00)
== END 2023-07-19 13:45 | DRG 466 ==
LOC: M ED 19:03 → EDBEDREQTM 22:53 → M ED INP 23:19 → ENRESERV 23:47 → M PCU 07-16 01:37 → M MS5PR 07-18 18:27
PROVIDERS: ADMIT Family Medicine; ATTEND Internal Medicine
DX: T83.511A Infection and inflammatory reaction due to indwelling urethral catheter, initial encounter (principal); A41.9 Sepsis, unspecified organism; I13.2 Hypertensive heart and chronic kidney disease with heart failure and with stage 5 chronic kidney disease, or end stage renal disease; E11.22 Type 2 diabetes mellitus with diabetic chronic kidney disease; E11.40 Type 2 diabetes mellitus with diabetic neuropathy, unspecified; E11.51 Type 2 diabetes mellitus with diabetic peripheral angiopathy without gangrene; I50.32 Chronic diastolic (congestive) heart failure; N18.6 End stage renal disease; N39.0 Urinary tract infection, site not specified; E03.9 Hypothyroidism, unspecified; K59.00 Constipation, unspecified; Z89.512 Acquired absence of left leg below knee; Z91.030 Bee allergy status; Z91.040 Latex allergy status; Z79.899 Other long term (current) drug therapy; Z79.82 Long term (current) use of aspirin; Z79.4 Long term (current) use of insulin; K57.90 Diverticulosis of intestine, part unspecified, without perforation or abscess without bleeding; Z89.421 Acquired absence of other right toe(s); Z87.891 Personal history of nicotine dependence; Z99.3 Dependence on wheelchair; Y84.6 Urinary catheterization as the cause of abnormal reaction of the patient, or of later complication, without mention of misadventure at the time of the procedure

== ENCOUNTER → 2023-07-15 | Outpatient (REF) | payer OTHER ==
[~2023-07-15] MED LIST changes: +SENN-186 PO
== END ==
LOC: SKLAB5 14:38
PROVIDERS: ATTEND Internal Medicine
DX: Z01.818 Encounter for other preprocedural examination (principal); Z79.899 Other long term (current) drug therapy

== ENCOUNTER → 2023-07-25 | Outpatient (REF) | payer OTHER ==
[~2023-07-25] MED LIST changes: +LEVO1TAB38 PO; +SENN-186 PO
[2023-07-25 07:06] LABS: HEMATOCRIT 38.4 % (42.0-52.0); HEMOGLOBIN 11.9 g/dl (13.5-17.5); MEAN CORPUSCULAR HEMOGLOBIN 30.5 pg (27.0-33.0); MEAN CORPUSCULAR VOLUME 98.5 fl (80.0-96.0); PLATELET COUNT, AUTOMATED 231 10^3/uL (150-450); WHITE BLOOD COUNT 6.7 10^3/uL (4.0-10.0)
[2023-07-25 07:29] LABS: ALBUMIN 3.3 G/DL (3.2-5.2); BILIRUBIN,TOTAL 0.3 MG/DL (0.3-1.2); CALCIUM LEVEL 9.2 MG/DL (8.5-10.1); CREATININE FOR GFR 6.43 MG/DL (0.70-1.30); GLOMERULAR FILTRATION RATE 9.7 (>56); POTASSIUM SERUM 4.6 MMOL/L (3.5-5.1); TOTAL PROTEIN 6.6 G/DL (5.7-8.2)
[2023-07-25 07:44] LABS: ANISOCYTOSIS 1+; ATYPICAL LYMPH 2 % (0-5); BASOPHILS 1 % (0-1); EOSINOPHILS 3 % (0-3); LYMPHOCYTES 22 % (16-44); MONOCYTES 10 % (0-5); MYELOCYTES 3 % (0-0); NEUTROPHILS 59 % (28-66); PLATELET ESTIMATE NORMAL (NORMAL); POLYCHROMASIA 1+
== END ==
LOC: SKLAB5 08:02
PROVIDERS: ATTEND Nurse Practitioner Family
DX: N18.6 End stage renal disease (principal)

== ENCOUNTER → 2023-08-01 | Outpatient (REF) | payer OTHER ==
[~2023-08-01] MED LIST changes: -ASPI-161 PO; +ASPI-615 PO
[2023-08-01 10:22] LABS: BASO # 0.1 10^3/uL (0.0-0.2); BASO % 0.8 % (0.0-1.0); EOS # 0.3 10^3/uL (0.0-0.5); EOS % 4.1 % (0.0-3.0); HEMATOCRIT 40.7 % (42.0-52.0); HEMOGLOBIN 12.8 g/dl (13.5-17.5); LYMPH # 1.1 10^3/uL (1.5-5.0); LYMPH % 14.7 % (24.0-44.0); MEAN CORPUSCULAR HEMOGLOBIN 31.1 pg (27.0-33.0); MEAN CORPUSCULAR HGB CONC 31.4 g/dl (32.0-36.5); MEAN CORPUSCULAR VOLUME 98.8 fl (80.0-96.0); MONO # 0.6 10^3/uL (0.0-0.8); MONO % 8.7 % (2.0-8.0); NEUTROPHILS # 5.1 10^3/uL (1.5-8.5); NEUTROPHILS % 71.1 % (36.0-66.0); PLATELET COUNT, AUTOMATED 188 10^3/uL (150-450); RED BLOOD COUNT 4.12 10^6/uL (4.30-6.10); WHITE BLOOD COUNT 7.2 10^3/uL (4.0-10.0)
[2023-08-01 11:17] LABS: ALBUMIN 3.4 G/DL (3.2-5.2); BILIRUBIN,TOTAL 0.5 MG/DL (0.3-1.2); CALCIUM LEVEL 9.4 MG/DL (8.5-10.1); CREATININE FOR GFR 5.8 MG/DL (0.70-1.30); GLOMERULAR FILTRATION RATE 10.9 (>56); POTASSIUM SERUM 5.4 MMOL/L (3.5-5.1); TOTAL PROTEIN 6.7 G/DL (5.7-8.2)
== END ==
LOC: SKLAB5 09:24
PROVIDERS: ATTEND Nurse Practitioner Family
DX: N18.6 End stage renal disease (principal)

== ENCOUNTER → 2023-08-08 | Outpatient (REF) | payer OTHER ==
[2023-08-08 08:35] LABS: BASO % 0.8 % (0.0-1.0); EOS # 0.3 10^3/uL (0.0-0.5); EOS % 6.1 % (0.0-3.0); HEMATOCRIT 41.7 % (42.0-52.0); HEMOGLOBIN 13.4 g/dl (13.5-17.5); LYMPH # 1.2 10^3/uL (1.5-5.0); LYMPH % 25.1 % (24.0-44.0); MEAN CORPUSCULAR HEMOGLOBIN 31.2 pg (27.0-33.0); MEAN CORPUSCULAR HGB CONC 32.1 g/dl (32.0-36.5); MONO # 0.5 10^3/uL (0.0-0.8); MONO % 10.2 % (2.0-8.0); NEUTROPHILS # 2.8 10^3/uL (1.5-8.5); NEUTROPHILS % 57.4 % (36.0-66.0); PLATELET COUNT, AUTOMATED 177 10^3/uL (150-450); WHITE BLOOD COUNT 4.9 10^3/uL (4.0-10.0)
[2023-08-08 09:04] LABS: ALBUMIN 3.6 G/DL (3.2-5.2); BILIRUBIN,TOTAL 0.3 MG/DL (0.3-1.2); CALCIUM LEVEL 9.8 MG/DL (8.5-10.1); CREATININE FOR GFR 4.46 MG/DL (0.70-1.30); GLOMERULAR FILTRATION RATE 14.8 (>56); POTASSIUM SERUM 4.3 MMOL/L (3.5-5.1)
== END ==
LOC: SKLAB5 13:28
PROVIDERS: ATTEND Nurse Practitioner Family
DX: N18.6 End stage renal disease (principal)

== ENCOUNTER → 2023-08-23 | Outpatient (REF) | payer OTHER | LOC: SKLAB5 12:21 | PROVIDERS: ATTEND Nurse Practitioner Family | DX: Z01.818 Encounter for other preprocedural examination (principal) ==

== ENCOUNTER → 2023-10-18 | Outpatient (CLI) | payer OTHER ==
[~2023-10-18] MED LIST changes: -DICL250C70 PO; +DICL250C72 PO; +LIDOCAINE 1% MDV 20ML VIAL As Ordered ONE; +LIDOCAINE W/EPINEPHRINE 1% 20ML VIAL As Ordered ONE
[2023-10-18 13:30] VITALS: TEMP 98.1
[2023-10-18 14:25] VITALS: BP 139/65; O2SAT 97
== END ==
LOC: M IRPRO 13:08
PROVIDERS: ATTEND Internal Medicine Nephrology
DX: N18.6 End stage renal disease (principal)

== ENCOUNTER → 2023-10-26 | Outpatient (REF) ==
[~2023-10-26] MED LIST changes: -LIDOCAINE 1% MDV 20ML VIAL As Ordered ONE; -LIDOCAINE W/EPINEPHRINE 1% 20ML VIAL As Ordered ONE
== END ==
LOC: SKLAB5 13:50
PROVIDERS: ATTEND Nurse Practitioner Family
DX: Z01.818 Encounter for other preprocedural examination (principal); Z53.8 Procedure and treatment not carried out for other reasons

== ENCOUNTER → 2023-10-27 | Outpatient (REF) | payer OTHER ==
[2023-10-27 13:52] LABS: HEMATOCRIT 31.6 % (42.0-52.0); HEMOGLOBIN 10.3 g/dl (13.5-17.5); MEAN CORPUSCULAR HEMOGLOBIN 31.2 pg (27.0-33.0); MEAN CORPUSCULAR HGB CONC 32.6 g/dl (32.0-36.5); MEAN CORPUSCULAR VOLUME 95.8 fl (80.0-96.0); PLATELET COUNT, AUTOMATED 175 10^3/uL (150-450); WHITE BLOOD COUNT 5.1 10^3/uL (4.0-10.0)
[2023-10-27 14:21] LABS: ALBUMIN 3.3 G/DL (3.2-5.2); BILIRUBIN,TOTAL 0.4 MG/DL (0.3-1.2); CREATININE FOR GFR 2.94 MG/DL (0.70-1.30); GLOMERULAR FILTRATION RATE 23.9 (>56); POTASSIUM SERUM 3.7 MMOL/L (3.5-5.1); TOTAL PROTEIN 6.5 G/DL (5.7-8.2)
== END ==
LOC: SKLAB5 13:20
PROVIDERS: ATTEND Internal Medicine
DX: Z01.818 Encounter for other preprocedural examination (principal); Z79.899 Other long term (current) drug therapy

== ENCOUNTER → 2023-11-10 | Outpatient (REF) | payer OTHER | LOC: SKLAB5 07:00 | PROVIDERS: ATTEND Internal Medicine | DX: C61 Malignant neoplasm of prostate (principal) ==

== ENCOUNTER → 2023-11-29 | Outpatient (REF) | payer OTHER, MEDICAID ==
[2023-11-29 13:52] LABS: HEMOGLOBIN A1c 6.4 % (4.0-6.0)
[2023-11-29 14:08] LABS: CHOLESTEROL RISK RATIO 2.8 (<5); HDL CHOLESTEROL 47.4 MG/DL (>40); LDL CHOLESTEROL 33.6 MG/DL (<100); NON-HDL-C 85.6 MG/DL; PHOSPHORUS LEVEL 4.2 MG/DL (2.5-4.9)
[2023-11-29 14:10] LABS: THYROID STIMULATING HORMONE 0.278 uIU/ML (0.55-4.78)
== END ==
LOC: SKLAB5 07:00
PROVIDERS: ATTEND Internal Medicine
DX: E03.9 Hypothyroidism, unspecified (principal); E55.9 Vitamin D deficiency, unspecified; E78.5 Hyperlipidemia, unspecified; E11.9 Type 2 diabetes mellitus without complications; N18.6 End stage renal disease; Z79.899 Other long term (current) drug therapy

== ENCOUNTER → 2023-12-20 | Outpatient (REF) | payer OTHER, MEDICAID ==
[2023-12-20 14:57] LABS: BASO # 0.1 10^3/uL (0.0-0.2); BASO % 0.8 % (0.0-1.0); EOS # 0.3 10^3/uL (0.0-0.5); EOS % 3.9 % (0.0-3.0); HEMATOCRIT 33.5 % (42.0-52.0); LYMPH # 1.5 10^3/uL (1.5-5.0); LYMPH % 19.8 % (24.0-44.0); MEAN CORPUSCULAR HEMOGLOBIN 31.9 pg (27.0-33.0); MEAN CORPUSCULAR HGB CONC 32.8 g/dl (32.0-36.5); MEAN CORPUSCULAR VOLUME 97.1 fl (80.0-96.0); MONO # 0.7 10^3/uL (0.0-0.8); MONO % 8.9 % (2.0-8.0); NEUTROPHILS % 64.7 % (36.0-66.0); PLATELET COUNT, AUTOMATED 173 10^3/uL (150-450); RED BLOOD COUNT 3.45 10^6/uL (4.30-6.10); WHITE BLOOD COUNT 7.8 10^3/uL (4.0-10.0)
[2023-12-20 15:05] LABS: ERYTHROCYTE SEDIMENTATION RATE 58 mm/hr (0-20)
[2023-12-20 15:22] LABS: C REACTIVE PROTEIN QUANTITATIV < 0.40 MG/DL (<1.0)
[2023-12-20 15:24] LABS: ALBUMIN 3.6 G/DL (3.2-5.2); ALKALINE PHOSPHATASE 113 U/L (46-116); ALT/SGPT 12 U/L (7.0-40); AST/SGOT < 8 U/L (<34); BILIRUBIN,TOTAL 0.3 MG/DL (0.3-1.2); BLOOD UREA NITROGEN 40 MG/DL (9-23); CALCIUM LEVEL 9.1 MG/DL (8.5-10.1); CARBON DIOXIDE LEVEL 29 MMOL/L (20-31); CHLORIDE LEVEL 101 MMOL/L (98-107); CREATININE FOR GFR 3.59 MG/DL (0.70-1.30); GLOMERULAR FILTRATION RATE 18.9 (>56); GLUCOSE, FASTING 196 MG/DL (60-100); POTASSIUM SERUM 4.1 MMOL/L (3.5-5.1); SODIUM LEVEL 137 MMOL/L (136-145); TOTAL PROTEIN 6.7 G/DL (5.7-8.2)
== END ==
LOC: SKLAB5 09:00
PROVIDERS: ATTEND Internal Medicine
DX: L03.012 Cellulitis of left finger (principal)

== ENCOUNTER → 2024-01-17 | Outpatient (REF) | payer OTHER ==
[2024-01-17 15:28] LABS: BASO # 0.1 10^3/uL (0.0-0.2); BASO % 0.8 % (0.0-1.0); EOS # 0.2 10^3/uL (0.0-0.5); EOS % 2.7 % (0.0-3.0); HEMATOCRIT 36.4 % (42.0-52.0); LYMPH # 0.9 10^3/uL (1.5-5.0); MEAN CORPUSCULAR HEMOGLOBIN 31.5 pg (27.0-33.0); MEAN CORPUSCULAR VOLUME 95.5 fl (80.0-96.0); MONO # 0.7 10^3/uL (0.0-0.8); MONO % 9.8 % (2.0-8.0); NEUTROPHILS # 4.8 10^3/uL (1.5-8.5); NEUTROPHILS % 72.3 % (36.0-66.0); PLATELET COUNT, AUTOMATED 180 10^3/uL (150-450); RED BLOOD COUNT 3.81 10^6/uL (4.30-6.10); WHITE BLOOD COUNT 6.6 10^3/uL (4.0-10.0)
[2024-01-17 15:56] LABS: CALCIUM LEVEL 9.3 MG/DL (8.5-10.1); CREATININE FOR GFR 4.39 MG/DL (0.70-1.30); POTASSIUM SERUM 4.3 MMOL/L (3.5-5.1)
== END ==
LOC: SKLAB5 14:33
PROVIDERS: ATTEND Internal Medicine
DX: U07.1 COVID-19 (principal)

== ENCOUNTER → 2024-01-26 | Outpatient (REF) | payer OTHER | LOC: SKLAB5 11:39 | PROVIDERS: ATTEND Internal Medicine | DX: E03.9 Hypothyroidism, unspecified (principal) ==

== ENCOUNTER → 2024-02-06 | Outpatient (CLI) | payer OTHER ==
[~2024-02-06] MED LIST changes: +PROHANCE 279.3MG/ML 15ML VIAL As Ordered ONE
== END ==
LOC: M RAD 11:29
PROVIDERS: ATTEND Nurse Practitioner Family
DX: L03.012 Cellulitis of left finger (principal)
CPT/HCPCS: 73220; A9576

== ENCOUNTER → 2024-02-28 | Outpatient (REF) | payer OTHER ==
[~2024-02-28] MED LIST changes: -PROHANCE 279.3MG/ML 15ML VIAL As Ordered ONE
== END ==
LOC: SKLAB5 07:00
PROVIDERS: ATTEND Internal Medicine
DX: E11.9 Type 2 diabetes mellitus without complications (principal)

== ENCOUNTER → 2024-03-23 | Outpatient (REF) | payer OTHER ==
[~2024-03-23] MED LIST changes: +GABA-1172 PO; -GABA-282 PO; -SENN-111 PO; +SENN-165 PO
[2024-03-23 11:19] LABS: BASO # 0.1 10^3/uL (0.0-0.2); BASO % 0.9 % (0.0-1.0); EOS # 0.3 10^3/uL (0.0-0.5); EOS % 4.1 % (0.0-3.0); HEMATOCRIT 33.2 % (42.0-52.0); HEMOGLOBIN 10.9 g/dl (13.5-17.5); LYMPH # 1.5 10^3/uL (1.5-5.0); LYMPH % 18.9 % (24.0-44.0); MEAN CORPUSCULAR HEMOGLOBIN 32.1 pg (27.0-33.0); MEAN CORPUSCULAR HGB CONC 32.8 g/dl (32.0-36.5); MEAN CORPUSCULAR VOLUME 97.6 fl (80.0-96.0); MONO # 0.6 10^3/uL (0.0-0.8); MONO % 7.5 % (2.0-8.0); NEUTROPHILS # 5.5 10^3/uL (1.5-8.5); PLATELET COUNT, AUTOMATED 183 10^3/uL (150-450); WHITE BLOOD COUNT 8.1 10^3/uL (4.0-10.0)
[2024-03-23 11:33] LABS: ERYTHROCYTE SEDIMENTATION RATE 62 mm/hr (0-20)
[2024-03-23 11:50] LABS: ALBUMIN 3.8 G/DL (3.2-5.2); BILIRUBIN,TOTAL 0.4 MG/DL (0.3-1.2); CALCIUM LEVEL 9.9 MG/DL (8.5-10.1); CREATININE FOR GFR 5.84 MG/DL (0.70-1.30); GLOMERULAR FILTRATION RATE 10.8 (>56); POTASSIUM SERUM 4.4 MMOL/L (3.5-5.1); TOTAL PROTEIN 7.4 G/DL (5.7-8.2)
== END ==
LOC: SKLAB5 10:20
PROVIDERS: ATTEND Internal Medicine
DX: M86.9 Osteomyelitis, unspecified (principal); I10 Essential (primary) hypertension

== ENCOUNTER → 2024-04-06 | Outpatient (REF) | payer OTHER ==
[2024-04-06 10:23] LABS: HEMATOCRIT 37.1 % (42.0-52.0); MEAN CORPUSCULAR HEMOGLOBIN 31.8 pg (27.0-33.0); MEAN CORPUSCULAR HGB CONC 32.3 g/dl (32.0-36.5); MEAN CORPUSCULAR VOLUME 98.4 fl (80.0-96.0); PLATELET COUNT, AUTOMATED 187 10^3/uL (150-450); RED BLOOD COUNT 3.77 10^6/uL (4.30-6.10); WHITE BLOOD COUNT 8.2 10^3/uL (4.0-10.0)
[2024-04-06 10:35] LABS: ERYTHROCYTE SEDIMENTATION RATE 75 mm/hr (0-20)
[2024-04-06 10:50] LABS: ALBUMIN 3.9 G/DL (3.2-5.2); ALKALINE PHOSPHATASE 139 U/L (40-129); ALT/SGPT 17 U/L (7.0-40); AST/SGOT < 8 U/L (<34); BILIRUBIN,TOTAL 0.4 MG/DL (0.3-1.2); BLOOD UREA NITROGEN 54 MG/DL (9-23); CALCIUM LEVEL 9.7 MG/DL (8.5-10.1); CARBON DIOXIDE LEVEL 30 MMOL/L (20-31); CHLORIDE LEVEL 98 MMOL/L (98-107); CREATININE FOR GFR 6.34 MG/DL (0.70-1.30); GLOMERULAR FILTRATION RATE 9.8 (>56); GLUCOSE, FASTING 199 MG/DL (60-100); IRON (FE) 153 UG/DL (65-175); PERCENT SATURATION 48.4 % (19.7-50.0); POTASSIUM SERUM 4.6 MMOL/L (3.5-5.1); SODIUM LEVEL 136 MMOL/L (136-145); TOTAL IRON BINDING CAPACITY 316 UG/DL (250-425); TOTAL PROTEIN 7.8 G/DL (5.7-8.2)
[2024-04-06 10:53] LABS: FERRITIN 1437.7 NG/ML (10.5-307.3); THYROID STIMULATING HORMONE 1.162 uIU/ML (0.55-4.78)
[2024-04-06 10:55] LABS: FOLATE 20.08 NG/ML (>5.4)
[2024-04-06 10:56] LABS: VITAMIN B12 LEVEL 799 PG/ML (211-911)
== END ==
LOC: SKLAB5 09:17
PROVIDERS: ATTEND Internal Medicine
DX: I10 Essential (primary) hypertension (principal); R41.81 Age-related cognitive decline; E03.9 Hypothyroidism, unspecified; D64.9 Anemia, unspecified

== ENCOUNTER → 2024-05-03 | Outpatient (REF) | payer OTHER ==
[2024-05-04 00:03] LABS: AMPHETAMINES LEVEL URINE NEGATIVE (NEGATIVE); BARBITURATES URINE NEGATIVE (NEGATIVE); BENZODIAZEPINES URINE NEGATIVE (NEGATIVE); CANNABINOIDS URINE NEGATIVE (NEGATIVE); COCAINE METABOLITE URINE NEGATIVE (NEGATIVE); METHADONE URINE NEGATIVE (NEGATIVE); OPIATES URINE NEGATIVE (NEGATIVE); PHENCYCLIDINE URINE NEGATIVE (NEGATIVE)
== END ==
LOC: SKLAB5 14:41
PROVIDERS: ATTEND Internal Medicine
DX: Z02.83 Encounter for blood-alcohol and blood-drug test (principal); Z86.59 Personal history of other mental and behavioral disorders

== ENCOUNTER → 2024-05-28 | Outpatient (REF) | payer OTHER ==
[2024-05-28 14:19] LABS: HEMATOCRIT 31.5 % (42.0-52.0); HEMOGLOBIN 10.3 g/dl (13.5-17.5); MEAN CORPUSCULAR HEMOGLOBIN 32.1 pg (27.0-33.0); MEAN CORPUSCULAR HGB CONC 32.7 g/dl (32.0-36.5); MEAN CORPUSCULAR VOLUME 98.1 fl (80.0-96.0); PLATELET COUNT, AUTOMATED 161 10^3/uL (150-450); RED BLOOD COUNT 3.21 10^6/uL (4.30-6.10); WHITE BLOOD COUNT 6.4 10^3/uL (4.0-10.0)
[2024-05-29 13:23] LABS: PSA FREE 1.1 ng/mL
== END ==
LOC: SKLAB5 13:13
PROVIDERS: ATTEND Internal Medicine
DX: N40.0 Benign prostatic hyperplasia without lower urinary tract symptoms (principal); D64.9 Anemia, unspecified

== ENCOUNTER → 2024-06-15 | Outpatient (REF) | payer OTHER ==
[2024-06-15 10:53] LABS: HEMOGLOBIN A1c 8.7 % (4.0-6.0)
[2024-06-15 10:57] LABS: PHOSPHORUS LEVEL 6.3 MG/DL (2.5-4.9)
[2024-06-15 10:59] LABS: THYROID STIMULATING HORMONE 1.325 uIU/ML (0.55-4.78)
== END ==
LOC: SKLAB5 07:00
PROVIDERS: ATTEND Internal Medicine
DX: N18.6 End stage renal disease (principal); E03.9 Hypothyroidism, unspecified; E11.9 Type 2 diabetes mellitus without complications

== ENCOUNTER → 2024-07-12 | Outpatient (REF) | payer OTHER | LOC: SKLAB5 17:05 | PROVIDERS: ATTEND Nurse Practitioner Family | DX: E11.65 Type 2 diabetes mellitus with hyperglycemia (principal); Z53.9 Procedure and treatment not carried out, unspecified reason ==

== ENCOUNTER 2024-07-21 18:51 | Emergency (ER) | payer OTHER ==
[~2024-07-21] VITALS: Ht 182.9 cm; Wt 140.0 kg
[2024-07-21 19:30] LABS: BASO # 0.1 10^3/uL (0.0-0.2); BASO % 0.9 % (0.0-1.0); EOS # 0.3 10^3/uL (0.0-0.5); EOS % 3.7 % (0.0-3.0); HEMATOCRIT 38.1 % (42.0-52.0); HEMOGLOBIN 12.5 g/dl (13.5-17.5); LYMPH # 1.7 10^3/uL (1.5-5.0); LYMPH % 19.2 % (24.0-44.0); MEAN CORPUSCULAR HEMOGLOBIN 31.9 pg (27.0-33.0); MEAN CORPUSCULAR HGB CONC 32.8 g/dl (32.0-36.5); MEAN CORPUSCULAR VOLUME 97.2 fl (80.0-96.0); MONO # 0.7 10^3/uL (0.0-0.8); MONO % 7.4 % (2.0-8.0); NEUTROPHILS # 5.9 10^3/uL (1.5-8.5); NEUTROPHILS % 67.5 % (36.0-66.0); PLATELET COUNT, AUTOMATED 210 10^3/uL (150-450); RED BLOOD COUNT 3.92 10^6/uL (4.30-6.10); WHITE BLOOD COUNT 8.7 10^3/uL (4.0-10.0)
[2024-07-21 20:00] LABS: LIPASE 159 U/L (12-53)
[2024-07-21 20:02] LABS: ALBUMIN 3.9 G/DL (3.2-5.2); ALKALINE PHOSPHATASE 116 U/L (40-129); ALT/SGPT 16 U/L (7.0-40); AST/SGOT 16 U/L (<34); BILIRUBIN,DIRECT < 0.1 MG/DL (<0.4); BILIRUBIN,TOTAL 0.2 MG/DL (0.3-1.2); BLOOD UREA NITROGEN 36 MG/DL (9-23); CALCIUM LEVEL 8.8 MG/DL (8.5-10.1); CARBON DIOXIDE LEVEL 26 MMOL/L (20-31); CHLORIDE LEVEL 95 MMOL/L (98-107); CREATININE FOR GFR 4.85 MG/DL (0.70-1.30); GLOMERULAR FILTRATION RATE 13.4 (>56); GLUCOSE, FASTING 251 MG/DL (60-100); SODIUM LEVEL 135 MMOL/L (136-145); TOTAL PROTEIN 7.9 G/DL (5.7-8.2)
[2024-07-21 20:30] VITALS: TEMP 98
[2024-07-21 21:12] LABS: KETONE, URINE AUTO RFX NEGATIVE (NEGATIVE); NITRITE, URINE AUTO RFX NEGATIVE (NEGATIVE); RBC, URINE AUTO RFX TNTC /HPF (0-3); SQUAM EPITHELIAL CELL UR AURFX 0 /HPF (0-6); WBC, URINE AUTO RFX 5 /HPF (0-3)
[2024-07-21 21:57] LABS: LEUKOCYTE ESTERASE UR AUTO RFX 1+ (NEGATIVE)
[2024-07-21 22:45] VITALS: BP 142/64; O2SAT 96
== END 2024-07-21 23:09 | disposition home or self-care (01) ==
LOC: EDBD 18:51 → M ED 18:51
DX: R31.9 Hematuria, unspecified (principal); N18.6 End stage renal disease; E11.9 Type 2 diabetes mellitus without complications; E03.9 Hypothyroidism, unspecified; Z86.79 Personal history of other diseases of the circulatory system; Z91.030 Bee allergy status; Z91.040 Latex allergy status; Z91.048 Other nonmedicinal substance allergy status; Z79.82 Long term (current) use of aspirin; Z79.4 Long term (current) use of insulin; Z79.899 Other long term (current) drug therapy; Z86.711 Personal history of pulmonary embolism

== ENCOUNTER → 2024-07-21 | Outpatient (REF) | payer OTHER | LOC: SKLAB5 16:03 | PROVIDERS: ATTEND Nurse Practitioner Family | DX: Z53.9 Procedure and treatment not carried out, unspecified reason (principal) ==

== ENCOUNTER → 2024-07-27 | Outpatient (REF) | payer OTHER | LOC: M SMT 12:17 | PROVIDERS: ATTEND Urology | DX: R97.20 Elevated prostate specific antigen [PSA] (principal); C61 Malignant neoplasm of prostate ==

== ENCOUNTER → 2024-09-23 | Outpatient (REF) | payer OTHER ==
[~2024-09-23] MED LIST changes: -FLOM0.4C39 PO; +TAMS-18 PO
== END ==
LOC: SKLAB5 07:00
PROVIDERS: ATTEND Internal Medicine
DX: E11.9 Type 2 diabetes mellitus without complications (principal)

== ENCOUNTER → 2024-12-04 | Outpatient (REF) | payer OTHER ==
[2024-12-04 15:08] LABS: CHOLESTEROL RISK RATIO 2.66 (<5); HDL CHOLESTEROL 40.6 MG/DL (>40); LDL CHOLESTEROL 38.6 MG/DL (<100); NON-HDL-C 67.4 MG/DL
== END ==
LOC: SKLAB5 07:00
PROVIDERS: ATTEND Internal Medicine
DX: E11.9 Type 2 diabetes mellitus without complications (principal)

== ENCOUNTER → 2025-01-03 | Outpatient (REF) | payer OTHER ==
[~2025-01-03] MED LIST changes: +SENN-225 PO; -SENO8.6T5 PO
[2025-01-03 15:46] LABS: ESTIMATED AVERAGE GLUCOSE 189.0 MG/DL (60-110)
[2025-01-03 15:53] LABS: PHOSPHORUS LEVEL 3.0 MG/DL (2.5-4.9)
[2025-01-03 15:57] LABS: TOTAL 25(OH) VITAMIN D 45.9 NG/ML (20.0-100.0)
== END ==
LOC: SKLAB5 07:00
PROVIDERS: ATTEND Internal Medicine
DX: N18.6 End stage renal disease (principal); E03.9 Hypothyroidism, unspecified; E55.9 Vitamin D deficiency, unspecified; E11.9 Type 2 diabetes mellitus without complications

== ENCOUNTER → 2025-01-09 | Outpatient (REF) | payer OTHER ==
[2025-01-11 10:56] LABS: PSA % FREE 18.0 % (calc) (>25); PSA FREE 1.2 ng/mL; PSA TOTAL 6.8 ng/mL (< OR = 4.0)
== END ==
LOC: SKLAB5 07:44
PROVIDERS: ATTEND Internal Medicine
DX: C61 Malignant neoplasm of prostate (principal)

== ENCOUNTER → 2025-02-20 | Outpatient (CLI) | payer OTHER | LOC: M ONCR 08:24 | PROVIDERS: ATTEND General Practice | DX: C61 Malignant neoplasm of prostate (principal); R97.20 Elevated prostate specific antigen [PSA]; Z98.890 Other specified postprocedural states; Z90.79 Acquired absence of other genital organ(s); Z91.040 Latex allergy status; Z91.048 Other nonmedicinal substance allergy status; Z91.030 Bee allergy status; Z79.4 Long term (current) use of insulin; Z79.82 Long term (current) use of aspirin; Z79.899 Other long term (current) drug therapy ==

== ENCOUNTER → 2025-02-22 | Outpatient (REF) | payer OTHER ==
[2025-02-22 11:59] LABS: PLATELET COUNT, AUTOMATED 199 10^3/uL (150-450)
[2025-02-22 12:28] LABS: ESTIMATED AVERAGE GLUCOSE 209.0 MG/DL (60-110)
[2025-02-22 12:29] LABS: TOTAL 25(OH) VITAMIN D 46.6 NG/ML (20.0-100.0)
[2025-02-22 12:36] LABS: CALCIUM LEVEL 9.7 MG/DL (8.5-10.1); CARBON DIOXIDE LEVEL 33.0 MMOL/L (20-31); CHLORIDE LEVEL 93.0 MMOL/L (98-107); CHOLESTEROL LEVEL 115.0 MG/DL (<200); CHOLESTEROL RISK RATIO 2.61 (<5); CREATININE FOR GFR 8.21 MG/DL (0.70-1.30); GLOMERULAR FILTRATION RATE 7.1 (>56); LDL CHOLESTEROL 39.0 MG/DL (<100); NON-HDL-C 71.0 MG/DL; POTASSIUM SERUM 5.3 MMOL/L (3.5-5.1); SODIUM LEVEL 137.0 MMOL/L (136-145); TRIGLYCERIDES LEVEL 160.0 MG/DL (<150)
== END ==
LOC: SKLAB5 07:00
PROVIDERS: ATTEND Internal Medicine
DX: N18.6 End stage renal disease (principal); E11.22 Type 2 diabetes mellitus with diabetic chronic kidney disease; E78.5 Hyperlipidemia, unspecified

== ENCOUNTER 2025-03-20 13:32 | Outpatient (RCR) | payer OTHER ==
[2025-04-09] MEDS ORDERED: HYDR-3363 PO ×2 (17:22)
[2025-04-09] MEDS ORDERED: TRAZ-189 PO (17:22)
[2025-04-09] MEDS ORDERED: AURY1TAB PO (17:22)
[2025-04-09] MEDS ORDERED: ROSU40TA81 PO (17:22)
[2025-04-09] MEDS ORDERED: SERT50TA29 PO (17:22)
[2025-04-09] MEDS ORDERED: ARTIDRO4 OU (17:22)
[2025-04-09] MEDS ORDERED: PANT-23 PO (17:22)
[2025-04-09] MEDS ORDERED: LANTINJ4 SC (17:22)
[2025-04-09] MEDS ORDERED: SEVE800T3 PO (17:26)
[2025-04-09] MEDS ORDERED: INSUHUMDS SC (17:26)
== END 2025-04-12 ==
LOC: M ONCR 13:32
PROVIDERS: ATTEND General Practice
DX: Z51.0 Encounter for antineoplastic radiation therapy (principal); C61 Malignant neoplasm of prostate

== ENCOUNTER 2025-04-09 11:17 | Emergency (ER) | payer OTHER ==
[2025-04-09 12:49] LABS: BASO # 0.1 10^3/uL (0.0-0.2); BASO % 0.9 % (0.0-1.0); EOS # 0.3 10^3/uL (0.0-0.5); EOS % 3.6 % (0.0-3.0); LYMPH # 1.2 10^3/uL (1.5-5.0); LYMPH % 14.8 % (24.0-44.0); MONO # 0.4 10^3/uL (0.0-0.8); MONO % 5.5 % (2.0-8.0); NEUTROPHILS # 5.9 10^3/uL (1.5-8.5); NEUTROPHILS % 73.7 % (36.0-66.0); PLATELET COUNT, AUTOMATED 201 10^3/uL (150-450)
[2025-04-09 13:13] LABS: C REACTIVE PROTEIN QUANTITATIV 1.3 MG/DL (<1.0); CALCIUM LEVEL 9.2 MG/DL (8.5-10.1); CARBON DIOXIDE LEVEL 31.0 MMOL/L (20-31); CHLORIDE LEVEL 92.0 MMOL/L (98-107); CREATININE FOR GFR 5.72 MG/DL (0.70-1.30); GLOMERULAR FILTRATION RATE 10.9 (>56); POTASSIUM SERUM 4.5 MMOL/L (3.5-5.1); SODIUM LEVEL 135.0 MMOL/L (136-145)
[2025-04-09] MEDS ORDERED: TRAZ-189 PO (17:22)
[2025-04-09] MEDS ORDERED: PANT-23 PO (17:22)
[2025-04-09] MEDS ORDERED: ROSU40TA81 PO (17:22)
[2025-04-09] MEDS ORDERED: HYDR-3363 PO ×2 (17:22)
[2025-04-09] MEDS ORDERED: AURY1TAB PO (17:22)
[2025-04-09] MEDS ORDERED: SERT50TA29 PO (17:22)
[2025-04-09] MEDS ORDERED: LANTINJ4 SC (17:22)
[2025-04-09] MEDS ORDERED: ARTIDRO4 OU (17:22)
[2025-04-09] MEDS ORDERED: SEVE800T3 PO (17:26)
[2025-04-09] MEDS ORDERED: INSUHUMDS SC (17:26)
[2025-04-09] MEDS ORDERED: HOME MED LIST COMPLETE! XX SCH (17:30)
[2025-04-09] MEDS: ONDANSETRON 4MG/2ML VIAL IV ONE (19:59)
[2025-04-09] MEDS: MORPHINE 4 MG/ML 1 ML VIAL IV ONE (20:01)
[2025-04-09] MEDS: DALBAVANCIN 1,500 MG in D5W 250 ML IV ONE (22:38)
[2025-04-09 23:31] VITALS: BP 119/59; TEMP 96.8; O2SAT 98
== END 2025-04-09 23:50 | disposition home or self-care (01) ==
LOC: M ED 11:17
DX: L03.116 Cellulitis of left lower limb (principal); E78.5 Hyperlipidemia, unspecified; E11.9 Type 2 diabetes mellitus without complications; E03.9 Hypothyroidism, unspecified; M54.50 Low back pain, unspecified; F41.9 Anxiety disorder, unspecified; I12.9 Hypertensive chronic kidney disease with stage 1 through stage 4 chronic kidney disease, or unspecified chronic kidney disease; Z91.030 Bee allergy status; Z91.040 Latex allergy status; Z79.1 Long term (current) use of non-steroidal anti-inflammatories (NSAID); Z79.899 Other long term (current) drug therapy; Z79.4 Long term (current) use of insulin
CPT/HCPCS: 80048; 83605; 85025; 85652; 86140; 87040; 96365; 96375; 99284; J0875; J2405

== ENCOUNTER → 2025-04-10 | Outpatient (REF) | payer OTHER ==
[~2025-04-10] MED LIST changes: +ARTIDRO4 OU; +AURY1TAB PO; +HYDR-3363 PO; +INSUHUMDS SC; +LANTINJ4 SC; +PANT-23 PO; +ROSU40TA81 PO; +SERT50TA29 PO; +SEVE800T3 PO; +TRAZ-189 PO
[2025-04-10 10:02] LABS: PLATELET COUNT, AUTOMATED 179 10^3/uL (150-450)
[2025-04-10 10:32] LABS: C REACTIVE PROTEIN QUANTITATIV 1.08 MG/DL (<1.0); CALCIUM LEVEL 8.8 MG/DL (8.5-10.1); CARBON DIOXIDE LEVEL 33.0 MMOL/L (20-31); CHLORIDE LEVEL 92.0 MMOL/L (98-107); CREATININE FOR GFR 7.63 MG/DL (0.70-1.30); GLOMERULAR FILTRATION RATE 7.7 (>56); POTASSIUM SERUM 4.9 MMOL/L (3.5-5.1); SODIUM LEVEL 135.0 MMOL/L (136-145)
== END ==
LOC: SKLAB5 09:40
PROVIDERS: ATTEND Internal Medicine
DX: L03.90 Cellulitis, unspecified (principal); E11.9 Type 2 diabetes mellitus without complications

== ENCOUNTER → 2025-04-11 | Outpatient (REF) | payer OTHER ==
[2025-04-24 07:58] LABS: ESTIMATED AVERAGE GLUCOSE 229.0 MG/DL (60-110)
== END ==
LOC: SKLAB5 08:42
PROVIDERS: ATTEND Internal Medicine
DX: E11.9 Type 2 diabetes mellitus without complications (principal)

== ENCOUNTER 2025-05-08 13:15 | Outpatient (RCR) | payer OTHER | END 2025-05-12 | LOC: M ONCR 13:15 | PROVIDERS: ATTEND General Practice | DX: Z51.0 Encounter for antineoplastic radiation therapy (principal); C61 Malignant neoplasm of prostate ==

== ENCOUNTER 2025-06-04 13:10 | Outpatient (RCR) | payer OTHER | END 2025-06-12 | LOC: M ONCR 13:10 | PROVIDERS: ATTEND General Practice | DX: Z51.0 Encounter for antineoplastic radiation therapy (principal); C61 Malignant neoplasm of prostate ==